=== PATIENT | male | born 1935 | race Caucasian/White ===

== ENCOUNTER 2017-01-02 15:23 | Emergency (ER) | payer MEDICARE ==
[~2017-01-02] VITALS: Ht 172.7 cm; Wt 81.6 kg
[~2017-01-02 15:23] MED LIST: ASP81TEC PO; ATEN100T88 PO; CITA20TA4 PO; DIGO250T96 PO; ENAL10TA PO; FINA5TAB6 PO; HSCO125 SL; LEVO500T69 PO; SIMV40TA4 PO; TERA5CAP10 PO
--- NOTE | 2017-01-02 17:05 | ED GI ---
General Chief Complaint: Abdominal/GI Problems Stated Complaint: CONSTIPATED Nursing Triage Note: Pt has a ostomy bag is concerned about possible blockage. Pt ate a large meal last night and reports no stool in his ostomy bag. Feels pressure "building up. " Sepsis Screen: No Definite Risk Source of Information: Patient, Family Exam Limitations: No Limitations History of Present Illness Time Seen By Provider: 17:05 Initial Comments 81-year-old male patient presents to the emergency department with complaints of possible ostomy blockage. Patient reports having a large meal last night. Denies having any stool or flatus in his ostomy bag today. States feels like he is bloated today. Denies any nausea, vomiting, diarrhea. States he hasn't eaten anything today due to abdominal distention. Timing/Duration: 12-24 Hours, Getting Worse Severity/Quality: Moderate, Cramping, Other (pressure) Location: Generalized Abdomen Radiation: No Radiation Activities at Onset: None Modifying Factors: Worsens With Other (no improvement with eating. worse with palpation.) Allergies and Home Medications Allergies Coded Allergies: No Known Drug Allergies (Unverified , 01/05/17) Home Medications Acetaminophen 500 Mg Tablet, 500-1,000 MG PO Q4H PRN for PAIN, (Reported) Aspirin 81 Mg Tabec, 81 MG PO DAILY, (Reported) Atenolol 100 Mg Tablet, 100 MG PO DAILY, (Reported) Atorvastatin Calcium 80 Mg Tablet, 40 MG PO DAILY, (Reported) TAKES 1/2 (80MG) TABLET Digoxin 125 Mcg Tablet, 125 MCG PO DAILY, (Reported) Enalapril Maleate 10 Mg Tablet, 5 MG PO DAILY, (Reported) TAKES 1/2 (10MG) TABLET Famotidine 20 Mg Tablet, 20 MG PO BID, #20 (Reported) FILLED #20 01-03-17 Finasteride 5 Mg Tablet, 5 MG PO DAILY, (Reported) Furosemide 20 Mg Tablet, 20 MG PO DAILY, (Reported) Hyoscyamine Sulfate 0.125 Mg Tab.subl, 0.125 MG SL Q6H PRN for PAIN, #14 ( Reported) #14 FILLED 01-03-17 Loratadine 10 Mg Tablet, 10 MG PO DAILY, (Reported) Metformin HCl 500 Mg Tab.er.24h, 500 MG PO DAILY, (Reported) Neomycin/Polymyxin B Sulf/Hc 10 Ml Drops.susp, 3 DROPS EACH EAR TID PRN for EAR PAIN for 7 Days, (Reported) Ondansetron 8 Mg Tab.rapdis, 8 MG PO Q6H PRN for NAUSEA, #10 (Reported) #10 FILLED 01-03-17 Oxybutynin Chloride 5 Mg Tablet, 5 MG PO DAILY, (Reported) Terazosin Hcl 5 Mg Capsule, 5 MG PO BID, (Reported) Review of Systems Constitutional: No chills, No diaphoresis, No fever, No malaise Respiratory: No Symptoms Reported Gastrointestinal: See HPI, Abdomen Distended, Abdominal Pain, Denies Blood Streaked Stools, Constipated, Denies Diarrhea, Denies Nausea, Denies Poor Appetite, Denies Poor Fluid Intake, Denies Rectal Bleeding, Denies Vomiting Genitourinary: Denies Burning, Denies Frequency, Denies Flank Pain, Denies Hematuria, Denies Pain Musculoskeletal: no symptoms reported Skin: no symptoms reported Psychiatric/Neurological: No Symptoms Reported All Other Systems Reviewed Negative Unless Noted: Yes (Negative excepted noted.) Past Kcyroxs-Upiicl-Mbwpgy Hx Patient Social History Alcohol Use: Denies Use Recreational Drug Use: No Smoking Status: Never a Smoker 2nd Hand Smoke Exposure: No Recent Foreign Travel: No Contact w/Someone Who Travel: No Recent Infectious Disease Expo: No Recent Hopitalizations: Yes Immunizations Up To Date Date of Pneumonia Vaccine: Jul 11, 2010 Date of Influenza Vaccine: Jul 11, 2011 Surgeries HX Surgeries: Yes (colon, gall bladder and appendix removed, cataracts removed) Surgeries: Abdominal (colon resection with ostomy.) Respiratory Hx Respiratory Disorders: No Cardiovascular Hx Cardiac Disorders: Yes Neurological Hx Neurological Disorders: No Reproductive System Hx Reproductive Disorders: No Genitourinary Hx Genitourinary Disorders: No Gastrointestinal Hx Gastrointestinal Disorders: Yes Musculoskeletal Hx Musculoskeletal Disorders: No Endocrine Hx Endocrine Disorders: No HEENT HX ENT Disorders: No Psychosocial Hx Psychiatric Problems: No Blood Transfusions Hx Blood Disorders: No Reviewed Nursing Assessment Reviewed/Agree w Nursing PMH: Yes Family Medical History Significant Family History: No Pertinent Family Hx Physical Exam Vital Signs Capillary Refill : Less Than 3 Seconds General Appearance: WD/WN, no apparent distress HEENT: PERRL/EOMI, pharynx normal Neck: supple, normal inspection Respiratory: lungs clear, normal breath sounds, no respiratory distress Cardiovascular: regular rate, rhythm, no murmur Gastrointestinal: abnormal bowel sounds, distended, No guarding, No rebound, tenderness (generalized tenderness.), hernia (reducible parastomal hernia noted. ), other (ostomy noted in the left midabdomen without flatus or stool noted in the ostomy bag. Stoma pain.) Extremities: no pedal edema, normal capillary refill Back: normal inspection Neurologic/Psychiatric: alert, normal mood/affect, oriented x 3 Skin: normal color, warm/dry Progress/Results/Core Measures Results/Orders Lab Results Laboratory Tests Test 01/02/17 17:45 Range/Units White Blood Count 9.9 4.3-11.0 10^3/uL Red Blood Count 4.74 4.35-5.85 10^6/uL Hemoglobin 14.7 13.3-17.7 G/DL Hematocrit 43 40-54 % Mean Corpuscular Volume 92 80-99 FL Mean Corpuscular Hemoglobin 31 25-34 PG Mean Corpuscular Hemoglobin Concent 34 32-36 G/DL Red Cell Distribution Width 12.7 10.0-14.5 % Platelet Count 157 130-400 10^3/uL Mean Platelet Volume 10.7 H 7.4-10.4 FL Neutrophils (%) (Auto) 75 42-75 % Lymphocytes (%) (Auto) 15 12-44 % Monocytes (%) (Auto) 7 0-12 % Eosinophils (%) (Auto) 3 0-10 % Basophils (%) (Auto) 0 0-10 % Neutrophils # (Auto) 7.4 1.8-7.8 X 10^3 Lymphocytes # (Auto) 1.4 1.0-4.0 X 10^3 Monocytes # (Auto) 0.7 0.0-1.0 X 10^3 Eosinophils # (Auto) 0.3 0.0-0.3 10^3/uL Basophils # (Auto) 0.0 0.0-0.1 10^3/uL Sodium Level 139 135-145 MMOL/L Potassium Level 4.5 3.6-5.0 MMOL/L Chloride Level 101 98-107 MMOL/L Carbon Dioxide Level 26 21-32 MMOL/L Anion Gap 12 5-14 MMOL/L Blood Urea Nitrogen 13 7-18 MG/DL Creatinine 0.83 0.60-1.30 MG/DL Estimat Glomerular Filtration Rate > 60 BUN/Creatinine Ratio 16 Glucose Level 119 H 70-105 MG/DL Calcium Level 10.3 H 8.5-10.1 MG/DL Total Bilirubin 0.7 0.1-1.0 MG/DL Aspartate Amino Transf (AST/SGOT) 27 5-34 U/L Alanine Aminotransferase (ALT/SGPT) 37 0-55 U/L Alkaline Phosphatase 59 40-136 U/L Total Protein 6.4 6.4-8.2 G/DL Albumin 4.0 3.2-4.5 G/DL Lipase 8 8-78 U/L My Orders Orders - AAKASH HODGES Acute Abd Series (01/02/17 16:31) Cbc With Automated Diff (01/02/17 17:11) Comprehensive Metabolic Panel (01/02/17 17:11) Lipase (01/02/17 17:11) Saline Lock/Iv-Start (01/02/17 17:11) Ondansetron Injection (Zofran Injectio (01/02/17 17:15) Famotidine Injection (Pepcid Injection) (01/02/17 17:11) Ns Iv 1000 Ml (Sodium Chloride 0.9%) (01/02/17 17:11) Ct Abdomen/Pelvis W (01/02/17 17:57) Iohexol Injection (Omnipaque 350 Mg/Ml 1 (01/02/17 18:30) Ns (Ivpb) (Sodium Chloride 0.9% Ivpb Bag (01/02/17 18:30) Ondansetron Injection (Zofran Injectio (01/02/17 19:15) Rx-Ondansetron Po (Rx-Zofran Po) (01/02/17 19:57) Rx-Hyoscyamine Tab (Rx-Levsin Sl) (01/02/17 19:57) Iv Push Bad [employer] Gat[employer]r Ed (01/02/17 ) Medications Given in ED Vital Signs/I&O Blood Pressure Mean: 98 Diagnostic Imaging Diagonstic Imaging: Xray Plain Films/CT/US/NM/MRI: abdomen Comments FINDINGS: Minimal atelectasis in the left lung base. Otherwise, the lungs are clear. No pleural effusion or pneumothorax. Heart is normal in size. Stable left pectoral transvenous pacemaker. No free intraperitoneal air. There are a few gas-filled borderline dilated loops of small bowel in the left abdomen, measuring up to 5 cm. Cholecystectomy. Age-related degenerative changes in the lumbar spine. IMPRESSION: 1. Nonspecific bowel gas pattern, with a few borderline dilated loops of small bowel in the left lower quadrant. If there is concern for small bowel obstruction, consider CT. 2. No free intraperitoneal air. 3. Left basilar subsegmental atelectasis. No acute cardiopulmonary process. Dictated by: Dictated on workstation # [id number] Reviewed: Reviewed by Me (radiology report reviewed by me) Diagonstic Imaging: CT Plain Films/CT/US/NM/MRI: abdomen, pelvis Comments FINDINGS: Lower chest: Patchy linear atelectasis within the lingula and middle lobe. Otherwise, lung bases are clear. No pericardial or pleural effusion. Peritoneum: No free intraperitoneal air or fluid. Liver and biliary system: Diffuse hypoattenuation of the liver indicates hepatic steatosis. No focal hepatic lesion. Status post cholecystectomy. No bile duct dilation. Spleen and Pancreas: Spleen is normal. The pancreas enhances normally without mass lesion or peripancreatic inflammatory changes. Adrenals: Normal. tract: The kidneys enhance normally without suspicious mass or obstruction. There is a 10 mm nonobstructing calculus in the lower pole of the left kidney. Urinary bladder is distended without wall thickening. Prostate is not enlarged. GI tract: Stomach is fluid-filled without wall thickening. No bowel obstruction. Small bowel loops are diffusely fluid filled with normal enhancement of the mucosa. The majority of the colon is fluid-filled. Surgical changes from partial distal colectomy with left lower quadrant colostomy with a wide neck fat-containing parastomal hernia. Raul pouch is normal with the exception of a few diverticula without diverticulitis. The appendix is not visualized and may be surgically absent. No right lower quadrant inflammatory changes to suggest acute appendicitis, if the appendix is present. Vasculature and Lymph nodes: Normal caliber aorta. No abdominal or pelvic lymphadenopathy. Musculoskeletal: No concerning osseous lesion. IMPRESSION: 1. No bowel obstruction. The bowel is diffusely fluid-filled most compatible with enteritis. 2. 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 3. There is a 10 mm nonobstructing calculus in the lower pole of the left kidney. 4. Diffuse hepatic steatosis. Dictated by: Dictated on workstation # [id number] Reviewed: Reviewed by Me (radiology report reviewed) Departure Communication Progress Notes 1950 all laboratory and diagnostic findings discussed with the patient. Patient now noted to have a large amount of stool and flatus in the ostomy bag at this time. Patient reports feeling much better now. Plan for dsch to home. all return precautions were discussed with the patient as described n the [facility] instructions of this report. Patient voices understanding and agrees with the treatment plan. Impression Impression: Primary Impression: Abdominal pain Qualified Codes: R10.84 - Generalized abdominal pain Additional Impressions: Nausea Parastomal hernia without obstruction or gangrene Disposition: HOME, SELF-CARE Condition: Improved Departure-Patient Inst. Decision time for Depature: 19:54 Referrals: ANA CRUZ MD (PCP/Family) Primary Care Physician Patient Instructions: Acute Abdomen (Belly Pain), Adult (DC), GASTROENTERITIS- 6Y-ADULT Add. Discharge Instructions: All discharge instructions reviewed with patient and/or family. Voiced understanding. Medications as instructed. Continue usual home medications. Tylenol and ibuprofen [id number] as directed for pain or fever. Clear liquid diet until symptoms improve, then increase diet slowly. Follow-up with a family practitioner of choice to establish care and for recheck. Return to the emergency department for worsened pain, fever, vomiting, vomiting blood, rectal bleeding, black stools, inability to urinate, decreased urination, inability to pass stool/gas, or any other concerns. AAKASH HODGES Jan 02, 2017 17:05
--- NOTE | 2017-01-02 17:09 | Diagnostic Imaging Report ---
INDICATION: Constipation. TECHNIQUE: Acute abdomen. COMPARISON: 04/11/2012. FINDINGS: Minimal atelectasis in the left lung base. Otherwise, the lungs are clear. No pleural effusion or pneumothorax. Heart is normal in size. Stable left pectoral transvenous pacemaker. No free intraperitoneal air. There are a few gas-filled borderline dilated loops of small bowel in the left abdomen, measuring up to 5 cm. Cholecystectomy. Age-related degenerative changes in the lumbar spine. IMPRESSION: 1. Nonspecific bowel gas pattern, with a few borderline dilated loops of small bowel in the left lower quadrant. If there is concern for small bowel obstruction, consider CT. 2. No free intraperitoneal air. 3. Left basilar subsegmental atelectasis. No acute cardiopulmonary process. Dictated by: Dictated on workstation # [id number]
[2017-01-02] MEDS ORDERED: NS IV 1000 ML 1,000 ML IV ONE (17:11)
[2017-01-02] MEDS ORDERED: FAMOTIDINE 20MG/2ML IV (PEPCID) IV STA (17:11)
[2017-01-02] MEDS ORDERED: ONDANSETRON 4 MG/2 ML (SDV) Z0FRAN IVP ONE ×2 (17:15→19:15)
[2017-01-02 17:55] LABS: BASOPHILS % (AUTO) 0 % (0-10); EOSINOPHILS # (AUTO) 0.3 10^3/uL (0.0-0.3); EOSINOPHILS % (AUTO) 3 % (0-10); LYMPHOCYTES # (AUTO) 1.4 X 10^3 (1.0-4.0); LYMPHOCYTES % (AUTO) 15 % (12-44); MEAN CORPUSCULAR HEMOGLOBIN 31 PG (25-34); MEAN CORPUSCULAR HGB CONC 34 G/DL (32-36); MEAN CORPUSCULAR VOLUME 92 FL (80-99); MEAN PLATELET VOLUME 10.7 FL (7.4-10.4); MONOCYTES # (AUTO) 0.7 X 10^3 (0.0-1.0); MONOCYTES % (AUTO) 7 % (0-12); NEUTROPHILS # (AUTO) 7.4 X 10^3 (1.8-7.8); NEUTROPHILS % (AUTO) 75 % (42-75); PLATELET COUNT 157 10^3/uL (130-400); RED BLOOD COUNT 4.74 10^6/uL (4.35-5.85); RED CELL DISTRIBUTION WIDTH 12.7 % (10.0-14.5); WHITE BLOOD COUNT 9.9 10^3/uL (4.3-11.0)
[2017-01-02 18:16] LABS: ALANINE AMINOTRANSFERASE 37 U/L (0-55); ANION GAP 12 MMOL/L (5-14); ASPARTATE AMINO TRANSFERASE 27 U/L (5-34); BILIRUBIN,TOTAL 0.7 MG/DL (0.1-1.0); BLOOD UREA NITROGEN 13 MG/DL (7-18); BUN/CREATININE RATIO 16; CALCIUM 10.3 MG/DL (8.5-10.1); CARBON DIOXIDE 26 MMOL/L (21-32); CHLORIDE 101 MMOL/L (98-107); CREATININE SERUM 0.83 MG/DL (0.60-1.30); GFR ESTIMATED > 60; GLUCOSE 119 MG/DL (70-105); LIPASE 8 U/L (8-78); POTASSIUM 4.5 MMOL/L (3.6-5.0); SODIUM 139 MMOL/L (135-145); TOTAL PROTEIN 6.4 G/DL (6.4-8.2)
[2017-01-02] MEDS ORDERED: IOHEXOL 350 MG/ML 100 ML (OMNIPAQUE 350) VIAL IV ONE (18:30)
[2017-01-02] MEDS ORDERED: NS 100 ML (IVPB) BAG IV ONE (18:30)
--- NOTE | 2017-01-02 19:01 | Diagnostic Imaging Report ---
PROCEDURE: CT abdomen and pelvis with contrast. TECHNIQUE: Multiple contiguous axial images were obtained through the abdomen and pelvis after administration of intravenous contrast. INDICATION: Abdominal pain. COMPARISON: Acute abdominal series from earlier the same day at 4:54 p.m. FINDINGS: Lower chest: Patchy linear atelectasis within the lingula and middle lobe. Otherwise, lung bases are clear. No pericardial or pleural effusion. Peritoneum: No free intraperitoneal air or fluid. Liver and biliary system: Diffuse hypoattenuation of the liver indicates hepatic steatosis. No focal hepatic lesion. Status post cholecystectomy. No bile duct dilation. Spleen and Pancreas: Spleen is normal. The pancreas enhances normally without mass lesion or peripancreatic inflammatory changes. Adrenals: Normal. tract: The kidneys enhance normally without suspicious mass or obstruction. There is a 10 mm nonobstructing calculus in the lower pole of the left kidney. Urinary bladder is distended without wall thickening. Prostate is not enlarged. GI tract: Stomach is fluid-filled without wall thickening. No bowel obstruction. Small bowel loops are diffusely fluid filled with normal enhancement of the mucosa. The majority of the colon is fluid-filled. Surgical changes from partial distal colectomy with left lower quadrant colostomy with a wide neck fat-containing parastomal hernia. Raul pouch is normal with the exception of a few diverticula without diverticulitis. The appendix is not visualized and may be surgically absent. No right lower quadrant inflammatory changes to suggest acute appendicitis, if the appendix is present. Vasculature and Lymph nodes: Normal caliber aorta. No abdominal or pelvic lymphadenopathy. Musculoskeletal: No concerning osseous lesion. IMPRESSION: 1. No bowel obstruction. The bowel is diffusely fluid-filled most compatible with enteritis. 2. 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 3. There is a 10 mm nonobstructing calculus in the lower pole of the left kidney. 4. Diffuse hepatic steatosis. Dictated by: Dictated on workstation # [id number]
[2017-01-02] MEDS ORDERED: FAMO-119 PO (19:56)
[2017-01-02] MEDS ORDERED: ONDA8TAB13 PO (19:56)
[2017-01-02] MEDS ORDERED: HYOS0.1283 SL (19:56)
[2017-01-02] MEDS ORDERED: RX-ONDANSETRON 4 MG ODT (ZOFRAN) PPK #4 PO STA (19:57)
[2017-01-02] MEDS ORDERED: RX-HYOSCYAMINE 0.125 MG SL (LEVSIN) PPK#6 SL STA (19:57)
[2017-01-02 20:18] VITALS: BP 170/76
== END 2017-01-02 20:18 | disposition home or self-care (01) ==
LOC: EDUNIT# 15:23 → ER 15:25
DX: K43.5 Parastomal hernia without obstruction or gangrene (principal); N20.0 Calculus of kidney; K76.0 Fatty (change of) liver, not elsewhere classified; Z79.3 Long term (current) use of hormonal contraceptives
CPT/HCPCS: 36415; 74022; 74177; 80053; 83690; 85025; 96361; 96374; 96375; 96376

== ENCOUNTER 2017-01-03 23:33 | Emergency (ER) | payer MEDICARE ==
[~2017-01-03] VITALS: Ht 172.7 cm; Wt 81.6 kg
[~2017-01-03 23:33] MED LIST changes: +FAMO-119 PO; +HYOS0.1283 SL; +ONDA8TAB13 PO
--- NOTE | 2017-01-04 00:30 | ED Abdominal Pain ---
General Chief Complaint: Abdominal/GI Problems Stated Complaint: BOWEL ISSUES Nursing Triage Note: patient reports bowels not working Sepsis Screen: No Definite Risk Source of Information: Patient, RN Notes Reviewed Exam Limitations: No Limitations History of Present Illness Time Seen By Provider: 00:20 Initial Comments As above and below. Patient here on 01/03 c/ similar complaints. Further questioning reveals he never filled his Rx's from that visit. Timing/Duration: 1 Week Severity/Quality: Cramping, Sharp, Stabbing Location: Generalized Abdomen Radiation: No Radiation Activities at Onset: None Modifying Factors: Improves With Other (none) Associated Symptoms: Heartburn Allergies and Home Medications Allergies Coded Allergies: No Known Drug Allergies (Unverified , 01/05/17) Home Medications Acetaminophen 500 Mg Tablet, 500-1,000 MG PO Q4H PRN for PAIN, (Reported) Aspirin 81 Mg Tabec, 81 MG PO DAILY, (Reported) Atenolol 100 Mg Tablet, 100 MG PO DAILY, (Reported) Atorvastatin Calcium 80 Mg Tablet, 40 MG PO DAILY, (Reported) TAKES 1/2 (80MG) TABLET Digoxin 125 Mcg Tablet, 125 MCG PO DAILY, (Reported) Enalapril Maleate 10 Mg Tablet, 5 MG PO DAILY, (Reported) TAKES 1/2 (10MG) TABLET Famotidine 20 Mg Tablet, 20 MG PO BID, #20 (Reported) FILLED #20 01-03-17 Finasteride 5 Mg Tablet, 5 MG PO DAILY, (Reported) Furosemide 20 Mg Tablet, 20 MG PO DAILY, (Reported) Hyoscyamine Sulfate 0.125 Mg Tab.subl, 0.125 MG SL Q6H PRN for PAIN, #14 ( Reported) #14 FILLED 01-03-17 Loratadine 10 Mg Tablet, 10 MG PO DAILY, (Reported) Metformin HCl 500 Mg Tab.er.24h, 500 MG PO DAILY, (Reported) Neomycin/Polymyxin B Sulf/Hc 10 Ml Drops.susp, 3 DROPS EACH EAR TID PRN for EAR PAIN for 7 Days, (Reported) Ondansetron 8 Mg Tab.rapdis, 8 MG PO Q6H PRN for NAUSEA, #10 (Reported) #10 FILLED 01-03-17 Oxybutynin Chloride 5 Mg Tablet, 5 MG PO DAILY, (Reported) Terazosin Hcl 5 Mg Capsule, 5 MG PO BID, (Reported) Review of Systems Constitutional: see HPI Gastrointestinal: See HPI, Abdominal Pain All Other Systems Reviewed Negative Unless Noted: Yes (Negative excepted noted.) Past Svhkofs-Kouakt-Qhijxv Hx Patient Social History Alcohol Use: Denies Use Recreational Drug Use: No Smoking Status: Never a Smoker 2nd Hand Smoke Exposure: No Recent Foreign Travel: No Contact w/Someone Who Travel: No Recent Infectious Disease Expo: No Recent Hopitalizations: No Immunizations Up To Date Date of Pneumonia Vaccine: Jul 11, 2010 Date of Influenza Vaccine: Jul 11, 2011 Seasonal Allergies Seasonal Allergies: No Surgeries HX Surgeries: Yes (colon, cataracts removed) Surgeries: Appendectomy, Gallbladder Respiratory Hx Respiratory Disorders: No Cardiovascular Hx Cardiac Disorders: Yes Cardiac Disorders: Hypertension Neurological Hx Neurological Disorders: No Reproductive System Hx Reproductive Disorders: No Genitourinary Hx Genitourinary Disorders: No Gastrointestinal Hx Gastrointestinal Disorders: Yes Gastrointestinal Disorders: Gastroesophageal Reflux Musculoskeletal Hx Musculoskeletal Disorders: No Endocrine Hx Endocrine Disorders: No HEENT HX ENT Disorders: No Psychosocial Hx Psychiatric Problems: No Integumentary HX Skin/Integumentary Disorder: No Blood Transfusions Hx Blood Disorders: No Physical Exam Vital Signs Capillary Refill : Less Than 3 Seconds General Appearance: WD/WN, no apparent distress Respiratory: no respiratory distress Cardiovascular: regular rate, rhythm Gastrointestinal: No rebound, tenderness (generalized but worse epigastrically) Rectal: deferred Neurologic/Psychiatric: no motor/sensory deficits, alert, oriented x 3 Skin: warm/dry Progress/Results/Core Measures Results/Orders Lab Results Laboratory Tests Test 01/04/17 00:45 Range/Units White Blood Count 9.8 4.3-11.0 10^3/uL Red Blood Count 4.36 4.35-5.85 10^6/uL Hemoglobin 13.6 13.3-17.7 G/DL Hematocrit 40 40-54 % Mean Corpuscular Volume 92 80-99 FL Mean Corpuscular Hemoglobin 31 25-34 PG Mean Corpuscular Hemoglobin Concent 34 32-36 G/DL Red Cell Distribution Width 12.7 10.0-14.5 % Platelet Count 154 130-400 10^3/uL Mean Platelet Volume 10.5 H 7.4-10.4 FL Neutrophils (%) (Auto) 76 H 42-75 % Lymphocytes (%) (Auto) 11 L 12-44 % Monocytes (%) (Auto) 9 0-12 % Eosinophils (%) (Auto) 4 0-10 % Basophils (%) (Auto) 0 0-10 % Neutrophils # (Auto) 7.4 1.8-7.8 X 10^3 Lymphocytes # (Auto) 1.1 1.0-4.0 X 10^3 Monocytes # (Auto) 0.9 0.0-1.0 X 10^3 Eosinophils # (Auto) 0.4 H 0.0-0.3 10^3/uL Basophils # (Auto) 0.0 0.0-0.1 10^3/uL Sodium Level 146 H 135-145 MMOL/L Potassium Level 4.7 3.6-5.0 MMOL/L Chloride Level 111 H 98-107 MMOL/L Carbon Dioxide Level 25 21-32 MMOL/L Anion Gap 10 5-14 MMOL/L Blood Urea Nitrogen 53 H 7-18 MG/DL Creatinine 1.41 H 0.60-1.30 MG/DL Estimat Glomerular Filtration Rate 48 BUN/Creatinine Ratio 38 Glucose Level 129 H 70-105 MG/DL Calcium Level 8.5 8.5-10.1 MG/DL Total Bilirubin 0.3 0.1-1.0 MG/DL Aspartate Amino Transf (AST/SGOT) 29 5-34 U/L Alanine Aminotransferase (ALT/SGPT) 36 0-55 U/L Alkaline Phosphatase 67 40-136 U/L Troponin I < 0.30 <0.30 NG/ML Total Protein 6.5 6.4-8.2 G/DL Albumin 3.6 3.2-4.5 G/DL Lipase 188 H 8-78 U/L Digoxin Level < 0.30 L 0.80-2.00 NG/ML My Orders Orders - NICOLE LASSITER DO Cbc With Automated Diff (01/04/17 00:28) Comprehensive Metabolic Panel (01/04/17 00:28) Lipase (01/04/17 00:28) Digoxin (01/04/17 00:30) Saline Lock/Iv-Start (01/04/17 00:31) Ketorolac Injection (Toradol Injection) (01/04/17 00:45) Troponin I (01/04/17 01:37) Lactated Ringers (Lr 1000 Ml Iv Solution (01/04/17 01:37) Famotidine Tablet (Pepcid Tablet) (01/04/17 02:30) Iv Push [employer] Ed (01/03/17 ) Medications Given in ED Vital Signs/I&O Departure Impression Impression: Primary Impression: Gastroenteritis Additional Impressions: Mild pancreatitis Mild dehydration Disposition: 01 HOME, SELF-CARE Condition: Improved Departure-Patient Inst. Decision time for Depature: 02:32 Referrals: ANA CRUZ MD (PCP/Family) Primary Care Physician Patient Instructions: Pancreatitis (DC), Viral Gastroenteritis, Adult (DC) Add. Discharge Instructions: All discharge instructions reviewed with patient and/or family. Voiced understanding. NEED TO TAKE THE MEDICATIONS PRESCRIBED @ YOUR FIRST VISIT DIRECTED, ESPECIALLY THE PEPCID. NICOLE LASSITER DO Jan 04, 2017 00:30
[2017-01-04] MEDS ORDERED: KETOROLAC 30 MG/ML VIAL IVP ONE (00:45)
[2017-01-04 00:51] LABS: BASOPHILS % (AUTO) 0 % (0-10); EOSINOPHILS # (AUTO) 0.4 10^3/uL (0.0-0.3); EOSINOPHILS % (AUTO) 4 % (0-10); LYMPHOCYTES # (AUTO) 1.1 X 10^3 (1.0-4.0); LYMPHOCYTES % (AUTO) 11 % (12-44); MEAN CORPUSCULAR HEMOGLOBIN 31 PG (25-34); MEAN CORPUSCULAR HGB CONC 34 G/DL (32-36); MEAN CORPUSCULAR VOLUME 92 FL (80-99); MEAN PLATELET VOLUME 10.5 FL (7.4-10.4); MONOCYTES # (AUTO) 0.9 X 10^3 (0.0-1.0); MONOCYTES % (AUTO) 9 % (0-12); NEUTROPHILS # (AUTO) 7.4 X 10^3 (1.8-7.8); NEUTROPHILS % (AUTO) 76 % (42-75); PLATELET COUNT 154 10^3/uL (130-400); RED BLOOD COUNT 4.36 10^6/uL (4.35-5.85); RED CELL DISTRIBUTION WIDTH 12.7 % (10.0-14.5); WHITE BLOOD COUNT 9.8 10^3/uL (4.3-11.0)
[2017-01-04 01:12] LABS: ALANINE AMINOTRANSFERASE 36 U/L (0-55); ALBUMIN 3.6 G/DL (3.2-4.5); ANION GAP 10 MMOL/L (5-14); ASPARTATE AMINO TRANSFERASE 29 U/L (5-34); BILIRUBIN,TOTAL 0.3 MG/DL (0.1-1.0); BLOOD UREA NITROGEN 53 MG/DL (7-18); BUN/CREATININE RATIO 38; CALCIUM 8.5 MG/DL (8.5-10.1); CARBON DIOXIDE 25 MMOL/L (21-32); CHLORIDE 111 MMOL/L (98-107); CREATININE SERUM 1.41 MG/DL (0.60-1.30); GFR ESTIMATED 48; GLUCOSE 129 MG/DL (70-105); LIPASE 188 U/L (8-78); POTASSIUM 4.7 MMOL/L (3.6-5.0); SODIUM 146 MMOL/L (135-145); TOTAL PROTEIN 6.5 G/DL (6.4-8.2)
[2017-01-04 01:20] LABS: DIGOXIN < 0.30 NG/ML (0.80-2.00)
[2017-01-04] MEDS ORDERED: LACTATED RINGERS 1,000 ML IV ONE (01:37)
[2017-01-04] MEDS ORDERED: FAMOTIDINE 20 MG (PEPCID) TABLET PO ONE (02:30)
[2017-01-04 02:37] VITALS: BP 145/67
[2017-01-05] MEDS ORDERED: METF500T8 PO (22:52)
[2017-01-05] MEDS ORDERED: FURO20TA4 PO (22:54)
[2017-01-05] MEDS ORDERED: OXYB5TAB9 PO (22:56)
== END 2017-01-04 02:40 | disposition home or self-care (01) ==
LOC: EDUNIT# 23:33 → ER 23:35
DX: K52.9 Noninfective gastroenteritis and colitis, unspecified (principal); I10 Essential (primary) hypertension; Z79.82 Long term (current) use of aspirin; Z79.899 Other long term (current) drug therapy
CPT/HCPCS: 36415; 80053; 80162; 83690; 84484; 85025; 96361; 96374

== ENCOUNTER 2017-01-05 15:08 | Observation (INO) | payer MEDICARE ==
[~2017-01-05] VITALS: Ht 165.1 cm; Wt 77.5 kg
[2017-01-05] MEDS ORDERED: NS IV 1000 ML 1,000 ML IV ONE (15:11)
[2017-01-05] MEDS ORDERED: fentaNYL INJECTION 100 MCG/2 ML AMP IVP STA (15:11)
--- NOTE | 2017-01-05 15:24 | ED GI ---
General Chief Complaint: Abdominal/GI Problems Stated Complaint: ABD PAIN Source of Information: Patient Exam Limitations: No Limitations History of Present Illness Time Seen By Provider: 15:05 Initial Comments Here with report of persistent abdominal pain and nausea. States has been unable to eat for a few days and he is becoming progressively weak. He has been able to take his medicines although with some difficulty. Does have history of colostomy. Seen recently for the same and found to have no obstruction. He was given pain medicines which helped a little but are not working with his nausea. Denies fever or chills. Does report significant weakness. Timing/Duration: 2-3 Days Severity/Quality: Moderate, Cramping Location: Generalized Abdomen Radiation: No Radiation Activities at Onset: None Modifying Factors: Worsens With Eating, Worsens With Vomiting Associated Symptoms: No Back Pain, No Chest Pain, No Fever/Chills, Nausea/ Vomiting, No Shortness of Air, Weakness Allergies and Home Medications Allergies Coded Allergies: No Known Drug Allergies (Unverified , 01/05/17) Home Medications Acetaminophen 500 Mg Tablet, 500-1,000 MG PO Q4H PRN for PAIN, (Reported) Aspirin 81 Mg Tabec, 81 MG PO DAILY, (Reported) Atenolol 100 Mg Tablet, 100 MG PO DAILY, (Reported) Atorvastatin Calcium 80 Mg Tablet, 40 MG PO DAILY, (Reported) TAKES 1/2 (80MG) TABLET Digoxin 125 Mcg Tablet, 125 MCG PO DAILY, (Reported) Enalapril Maleate 10 Mg Tablet, 5 MG PO DAILY, (Reported) TAKES 1/2 (10MG) TABLET Famotidine 20 Mg Tablet, 20 MG PO BID, #20 (Reported) FILLED #20 01-03-17 Finasteride 5 Mg Tablet, 5 MG PO DAILY, (Reported) Furosemide 20 Mg Tablet, 20 MG PO DAILY, (Reported) Hyoscyamine Sulfate 0.125 Mg Tab.subl, 0.125 MG SL Q6H PRN for PAIN, #14 ( Reported) #14 FILLED 01-03-17 Loratadine 10 Mg Tablet, 10 MG PO DAILY, (Reported) Metformin HCl 500 Mg Tab.er.24h, 500 MG PO DAILY, (Reported) Neomycin/Polymyxin B Sulf/Hc 10 Ml Drops.susp, 3 DROPS EACH EAR TID PRN for EAR PAIN for 7 Days, (Reported) Ondansetron 8 Mg Tab.rapdis, 8 MG PO Q6H PRN for NAUSEA, #10 (Reported) #10 FILLED 01-03-17 Oxybutynin Chloride 5 Mg Tablet, 5 MG PO DAILY, (Reported) Terazosin Hcl 5 Mg Capsule, 5 MG PO BID, (Reported) Review of Systems Constitutional: see HPI, No chills, No fever EENTM: No Symptoms Reported Respiratory: No Symptoms Reported Cardiovascular: No Symptoms Reported Gastrointestinal: See HPI, Abdominal Pain, Denies Diarrhea, Nausea, Poor Appetite, Denies Vomiting Genitourinary: No Symptoms Reported Musculoskeletal: no symptoms reported Skin: no symptoms reported Psychiatric/Neurological: No Symptoms Reported Endocrine: No Symptoms Reported All Other Systems Reviewed Negative Unless Noted: Yes Past Naqpnra-Zlrjim-Chuacn Hx Patient Social History Alcohol Use: Denies Use Recreational Drug Use: No Smoking Status: Never a Smoker 2nd Hand Smoke Exposure: No Recent Hopitalizations: No Immunizations Up To Date Date of Pneumonia Vaccine: Jul 11, 2010 Date of Influenza Vaccine: Jul 11, 2011 Seasonal Allergies Seasonal Allergies: No Surgeries HX Surgeries: Yes (colon, cataracts removed) Surgeries: Appendectomy, Gallbladder Respiratory Hx Respiratory Disorders: No Cardiovascular Hx Cardiac Disorders: Yes Cardiac Disorders: Hypertension Neurological Hx Neurological Disorders: No Reproductive System Hx Reproductive Disorders: No Genitourinary Hx Genitourinary Disorders: No Gastrointestinal Hx Gastrointestinal Disorders: Yes Gastrointestinal Disorders: Gastroesophageal Reflux Musculoskeletal Hx Musculoskeletal Disorders: No Endocrine Hx Endocrine Disorders: No HEENT HX ENT Disorders: No Psychosocial Hx Psychiatric Problems: No Integumentary HX Skin/Integumentary Disorder: No Blood Transfusions Hx Blood Disorders: No Reviewed Nursing Assessment Reviewed/Agree w Nursing PMH: Yes Physical Exam Vital Signs VS - Last 72 Hours, by Label 01/05/17 01/05/17 15:11 15:26 Temp 98.1 98.1 Pulse 86 Resp 16 B/P (MAP) 160/69 Pulse Ox 97 Capillary Refill : General Appearance: WD/WN, mild distress HEENT: PERRL/EOMI, pharynx normal Neck: full range of motion, supple Respiratory: lungs clear, normal breath sounds Cardiovascular: regular rate, rhythm, no murmur Gastrointestinal: soft, distended, tenderness (mild diffuse) Extremities: non-tender, normal inspection Back: normal inspection, no CVA tenderness, no vertebral tenderness Neurologic/Psychiatric: alert, oriented x 3 Skin: normal color, warm/dry Progress/Results/Core Measures Results/Orders Lab Results Laboratory Tests Test 01/05/17 15:35 Range/Units White Blood Count 7.8 4.3-11.0 10^3/uL Red Blood Count 4.35 4.35-5.85 10^6/uL Hemoglobin 13.7 13.3-17.7 G/DL Hematocrit 40 40-54 % Mean Corpuscular Volume 92 80-99 FL Mean Corpuscular Hemoglobin 32 25-34 PG Mean Corpuscular Hemoglobin Concent 34 32-36 G/DL Red Cell Distribution Width 12.7 10.0-14.5 % Platelet Count 158 130-400 10^3/uL Mean Platelet Volume 10.2 7.4-10.4 FL Neutrophils (%) (Auto) 74 42-75 % Lymphocytes (%) (Auto) 14 12-44 % Monocytes (%) (Auto) 11 0-12 % Eosinophils (%) (Auto) 1 0-10 % Basophils (%) (Auto) 0 0-10 % Neutrophils # (Auto) 5.8 1.8-7.8 X 10^3 Lymphocytes # (Auto) 1.1 1.0-4.0 X 10^3 Monocytes # (Auto) 0.9 0.0-1.0 X 10^3 Eosinophils # (Auto) 0.1 0.0-0.3 10^3/uL Basophils # (Auto) 0.0 0.0-0.1 10^3/uL Sodium Level 135 135-145 MMOL/L Potassium Level 4.3 3.6-5.0 MMOL/L Chloride Level 99 98-107 MMOL/L Carbon Dioxide Level 27 21-32 MMOL/L Anion Gap 9 5-14 MMOL/L Blood Urea Nitrogen 20 H 7-18 MG/DL Creatinine 1.06 0.60-1.30 MG/DL Estimat Glomerular Filtration Rate > 60 BUN/Creatinine Ratio 19 Glucose Level 136 H 70-105 MG/DL Calcium Level 9.4 8.5-10.1 MG/DL Magnesium Level 1.6 L 1.8-2.4 MG/DL Total Bilirubin 1.1 H 0.1-1.0 MG/DL Aspartate Amino Transf (AST/SGOT) 19 5-34 U/L Alanine Aminotransferase (ALT/SGPT) 23 0-55 U/L Alkaline Phosphatase 41 40-136 U/L C-Reactive Protein High Sensitivity 2.42 H 0.00-0.50 MG/DL Total Protein 5.9 L 6.4-8.2 G/DL Albumin 3.5 3.2-4.5 G/DL Lipase 5 L 8-78 U/L Digoxin Level 0.42 L 0.80-2.00 NG/ML My Orders Orders - KT MATHEW MD Cbc With Automated Diff (01/05/17 15:11) Comprehensive Metabolic Panel (01/05/17 15:11) Hs C Reactive Protein (01/05/17 15:11) Magnesium (01/05/17 15:11) Ua Culture If Indicated (01/05/17 15:11) Fentanyl Injection (Sublimaze Injection (01/05/17 15:11) Ns Iv 1000 Ml (Sodium Chloride 0.9%) (01/05/17 15:11) Acute Abd Series (01/05/17 15:11) Digoxin (01/05/17 15:39) Lipase (01/05/17 15:46) Medications Given in ED Current Medications Medications Dose Ordered Sig/Rich Route Start Time Stop Time Status Last Admin Dose Admin Sodium Chloride 1,000 ml @ 0 mls/hr Q0M ONCE IV 01/05/17 15:11 01/05/17 15:16 DC 01/05/17 15:28 1,000 MLS/HR Vital Signs/I&O Vital Sign - Last 12Hours 01/05/17 01/05/17 15:11 15:26 Temp 98.1 98.1 Pulse 86 Resp 16 B/P (MAP) 160/69 Pulse Ox 97 Progress Note : Progress Note Seen and evaluated. IV established by EMS. Continue normal saline 1 L bolus initiated by EMS. Fentanyl 50 g IV, labs and acute abdominal series ordered. Monitor patient. 1706: Patient reports that he still does not feel well. This is his third visit in 3 days. Labs are a little better today than previous visit. Due to patient's persistent nausea and generalized abdominal discomfort and multiple visits, we will put patient in the hospital overnight in observation status with continued IV fluids. I did discuss the case with Dr. OLIVER and he agrees to accept the patient for admission. Patient is in agreement with plan. Patient understands that this is an observation status visit. Diagnostic Imaging Diagonstic Imaging: Xray Plain Films/CT/US/NM/MRI: chest, abdomen Comments NAME: ROSANNE CHAKRABORTY [facility] REC#: [id number] PT STATUS: REG ER : 1935 PHYSICIAN: KT MATHEW MD ADMIT DATE: 01/05/17/ER Signed Date of Exam: 01/05/17 ACUTE ABD SERIES Acute abdominal series. INDICATION: Nausea. Abdominal pain. FINDINGS: The lungs demonstrate no significant consolidation. The minimal atelectasis or scarring is seen in the left lung base. The heart size is normal. Pacemaker with two cardiac leads seen. No effusion or pneumothorax. There is no pneumoperitoneum. Surgical clips in the upright abdomen seen. There is mild distention of the stomach and minimal dilatation of a few small bowel loops with air-fluid levels seen. There is fecal material seen in the rectum. A 1 cm left flank calcification compatible with lower pole left kidney stone is seen as confirmed on recent CT scan. IMPRESSION: 1. Nonspecific minimal dilatation of small bowel loops with air-fluid levels may relate to reactive ileus from underlying enteritis or other inflammatory process. No significant change from 01/02/2017 seen. 2. A 1 cm left kidney stone. Dictated by: Dictated on workstation # [id number] Dict: 01/05/17 1611 Trans: 01/05/17 1655 [facility] [id number] Interpreted by: JAYLYN GIL MD Electronically signed by:JAYLYN GIL MD 01/05/17 1655 Departure Communication Time/Spoke to Admitting Phy: 17:06 Impression Impression: Primary Impression: Nausea alone Additional Impression: Generalized abdominal pain Disposition: ADMITTED INPATIENT Condition: Stable Decision to Admit Reason: Admit from ER (General) Decision to Admit/Date: Jan 05, 2017 Time/Decision to Admit Time: 17:06 Departure-Patient Inst. Referrals: ANA CRUZ MD (PCP/Family) Primary Care Physician KT MATHEW MD Jan 05, 2017 15:24
[2017-01-05 15:45] LABS: BASOPHILS % (AUTO) 0 % (0-10); EOSINOPHILS # (AUTO) 0.1 10^3/uL (0.0-0.3); EOSINOPHILS % (AUTO) 1 % (0-10); LYMPHOCYTES # (AUTO) 1.1 X 10^3 (1.0-4.0); LYMPHOCYTES % (AUTO) 14 % (12-44); MEAN CORPUSCULAR HEMOGLOBIN 32 PG (25-34); MEAN CORPUSCULAR HGB CONC 34 G/DL (32-36); MEAN CORPUSCULAR VOLUME 92 FL (80-99); MEAN PLATELET VOLUME 10.2 FL (7.4-10.4); MONOCYTES # (AUTO) 0.9 X 10^3 (0.0-1.0); MONOCYTES % (AUTO) 11 % (0-12); NEUTROPHILS # (AUTO) 5.8 X 10^3 (1.8-7.8); NEUTROPHILS % (AUTO) 74 % (42-75); PLATELET COUNT 158 10^3/uL (130-400); RED BLOOD COUNT 4.35 10^6/uL (4.35-5.85); RED CELL DISTRIBUTION WIDTH 12.7 % (10.0-14.5); WHITE BLOOD COUNT 7.8 10^3/uL (4.3-11.0)
[2017-01-05 16:08] LABS: ALANINE AMINOTRANSFERASE 23 U/L (0-55); ALBUMIN 3.5 G/DL (3.2-4.5); ANION GAP 9 MMOL/L (5-14); ASPARTATE AMINO TRANSFERASE 19 U/L (5-34); BILIRUBIN,TOTAL 1.1 MG/DL (0.1-1.0); BLOOD UREA NITROGEN 20 MG/DL (7-18); BUN/CREATININE RATIO 19; CALCIUM 9.4 MG/DL (8.5-10.1); CARBON DIOXIDE 27 MMOL/L (21-32); CHLORIDE 99 MMOL/L (98-107); CREATININE SERUM 1.06 MG/DL (0.60-1.30); GFR ESTIMATED > 60; GLUCOSE 136 MG/DL (70-105); MAGNESIUM 1.6 MG/DL (1.8-2.4); POTASSIUM 4.3 MMOL/L (3.6-5.0); SODIUM 135 MMOL/L (135-145); TOTAL PROTEIN 5.9 G/DL (6.4-8.2); hs C REACTIVE PROTEIN 2.42 MG/DL (0.00-0.50)
[2017-01-05 16:13] LABS: DIGOXIN 0.42 NG/ML (0.80-2.00)
--- NOTE | 2017-01-05 16:23 | Diagnostic Imaging Report ---
Acute abdominal series. INDICATION: Nausea. Abdominal pain. FINDINGS: The lungs demonstrate no significant consolidation. The minimal atelectasis or scarring is seen in the left lung base. The heart size is normal. Pacemaker with two cardiac leads seen. No effusion or pneumothorax. There is no pneumoperitoneum. Surgical clips in the upright abdomen seen. There is mild distention of the stomach and minimal dilatation of a few small bowel loops with air-fluid levels seen. There is fecal material seen in the rectum. A 1 cm left flank calcification compatible with lower pole left kidney stone is seen as confirmed on recent CT scan. IMPRESSION: 1. Nonspecific minimal dilatation of small bowel loops with air-fluid levels may relate to reactive ileus from underlying enteritis or other inflammatory process. No significant change from 01/02/2017 seen. 2. A 1 cm left kidney stone. Dictated by: Dictated on workstation # [id number]
[2017-01-05] MEDS ORDERED: CATHETER FLUSH 10 ML SYR IV PRN (19:15)
[2017-01-05] MEDS ORDERED: fentaNYL INJECTION 100 MCG/2 ML AMP IV PRN (19:15)
[2017-01-05] MEDS ORDERED: ONDANSETRON 4 MG/2 ML (SDV) Z0FRAN IV PRN (19:15)
[2017-01-05] MEDS: NS IV 1000 ML 1,000 ML IV SCH (19:44)
[2017-01-05 20:03] VITALS: BP 141/63
[2017-01-05] MEDS ORDERED: METF500T8 PO (22:52)
[2017-01-05] MEDS ORDERED: FURO20TA4 PO (22:54)
[2017-01-05] MEDS ORDERED: OXYB5TAB9 PO (22:56)
[2017-01-06 00:30] VITALS: BP 149/67
[2017-01-06 04:20] VITALS: BP 126/58
[2017-01-06 04:40] LABS: BASOPHILS % (AUTO) 0 % (0-10); EOSINOPHILS # (AUTO) 0.4 10^3/uL (0.0-0.3); EOSINOPHILS % (AUTO) 7 % (0-10); LYMPHOCYTES # (AUTO) 1.7 X 10^3 (1.0-4.0); LYMPHOCYTES % (AUTO) 29 % (12-44); MEAN CORPUSCULAR HEMOGLOBIN 31 PG (25-34); MEAN CORPUSCULAR HGB CONC 33 G/DL (32-36); MEAN CORPUSCULAR VOLUME 92 FL (80-99); MEAN PLATELET VOLUME 10.5 FL (7.4-10.4); MONOCYTES # (AUTO) 0.8 X 10^3 (0.0-1.0); MONOCYTES % (AUTO) 13 % (0-12); NEUTROPHILS # (AUTO) 2.9 X 10^3 (1.8-7.8); NEUTROPHILS % (AUTO) 50 % (42-75); PLATELET COUNT 131 10^3/uL (130-400); RED BLOOD COUNT 3.93 10^6/uL (4.35-5.85); RED CELL DISTRIBUTION WIDTH 12.5 % (10.0-14.5); WHITE BLOOD COUNT 5.8 10^3/uL (4.3-11.0)
[2017-01-06 05:00] LABS: ANION GAP 9 MMOL/L (5-14); BLOOD UREA NITROGEN 17 MG/DL (7-18); BUN/CREATININE RATIO 20; CALCIUM 8.2 MG/DL (8.5-10.1); CARBON DIOXIDE 23 MMOL/L (21-32); CHLORIDE 106 MMOL/L (98-107); CREATININE SERUM 0.84 MG/DL (0.60-1.30); GFR ESTIMATED > 60; GLUCOSE 92 MG/DL (70-105); POTASSIUM 4.1 MMOL/L (3.6-5.0); SODIUM 138 MMOL/L (135-145)
[2017-01-06] MEDS: NS IV 1000 ML 1,000 ML IV SCH (06:09)
[2017-01-06 07:35] VITALS: BP 133/63
[2017-01-06] MEDS ORDERED: DIGO125T PO (10:18)
[2017-01-06] MEDS ORDERED: ATOR80TA76 PO (10:18)
[2017-01-06] MEDS ORDERED: ACET-2267 PO (10:22)
[2017-01-06] MEDS ORDERED: NEOM10DR42 EACH EAR (10:22)
[2017-01-06] MEDS ORDERED: LORA10TA7 PO (10:22)
[2017-01-06] MEDS ORDERED: HYOS0.1218 SL (10:25)
[2017-01-06] MEDS ORDERED: FAMO20TA3 PO (10:25)
[2017-01-06] MEDS ORDERED: ONDA8TAB9 PO (10:25)
[2017-01-06 11:35] VITALS: BP 150/65
--- NOTE | 2017-01-06 14:38 | History & Physical-Hospitalist ---
HPI History of Present Illness: HPI/Chief Complaint the patient's an 81-year-old white male whom I have known for a period of 35 years or more. He had been admitted to observation after having presented for his third ER visit in 3 days. He had been CT on a previous immediate visit. So no repeat was made yesterday. A KUB was done which showed showed a gassy pattern consistent with ileus but no evidence of obstruction. His past history is positive for a hemicolectomy and colostomy done about 11 years ago. This was apparently for obstruction but no tumor. He reported that he was having many more liquid stools then was his customary. He was having inability to keep up with fluids. Source: patient Exam Limitations: no limitations Date Seen 01/06/17 Attending Physician Ilia Oliver MD PCP Niall Moya MD Referring Physician Date of Admission Jan 05, 2017 at 18:45 Home Medications & Allergies Home Medications Reviewed patient Home Medication Reconciliation Form Allergies Allergies Coded Allergies No Known Drug Allergies (Unverified01/05/17) Past Syekomo-Wgksqw-Ebiqpy Hx Patient Social History Marrital Status: Employed/Student: retired Alcohol Use: Denies Use Recreational Drug Use: No Smoking Status: Former Smoker 2nd Hand Smoke Exposure: No Physical Abuse Screen: No Sexual Abuse: No Recent Foreign Travel: No Contact w/other who traveled: No Recent Hopitalizations: No Recent Infectious Disease Expo: No Immunizations Up To Date Date of Pneumonia Vaccine: Nov 11, 2016 Date of Influenza Vaccine: Jul 11, 2016 Seasonal Allergies Seasonal Allergies: No Surgeries HX Surgeries: Yes (colon, cataracts removed) Surgeries: Appendectomy, Gallbladder Respiratory Hx Respiratory Disorders: No Cardiovascular Hx Cardiovascular Disorders: Yes Cardiac Disorders: Hypertension Neurological Hx Neurological Disorders: No Reproductive System Hx Reproductive Disorders: No Genitourinary Hx Genitourinary Disorders: No Gastrointestinal Hx Gastrointestinal Disorders: Yes Gastrointestinal Disorders: Gastroesophageal Reflux Musculoskeletal Hx Musculoskeletal Disorders: No Endocrine Hx Endocrine Disorders: No HEENT HX ENT Disorders: No Cancer Cancer: Melanoma Psychosocial Hx Psychiatric Problems: No Integumentary HX Skin/Integumentary Disorder: No Blood Transfusions Hx Blood Disorders: No Reviewed Nursing Assessment Reviewed/Agree w Nursing PMH: Yes Family Medical History Family Hx: DVT 19 MOTHER FH: renal failure 19 FATHER Review of Systems Constitutional: see HPI EENTM: no symptoms reported Respiratory: no symptoms reported Cardiovascular: no symptoms reported Gastrointestinal: see HPI Genitourinary: decreased output Musculoskeletal: muscle weakness Skin: no symptoms reported Psychiatric/Neurological: No Symptoms Reported Physical Exam Physical Exam Vital Signs Vital Sign - Last 12Hours 01/05/17 01/05/17 15:11 19:00 Temp 98.1 Pulse 86 Resp 16 B/P (MAP) 160/69 Pulse Ox 97 O2 Delivery Room Air Capillary Refill : Less Than 3 Seconds General Appearance: No Apparent Distress, WD/WN Eyes: Bilateral Eye Normal Inspection HEENT: Normal ENT Inspection Neck: Normal Inspection Respiratory: Chest Non Tender, Lungs Clear, Normal Breath Sounds, No Accessory Muscle Use, No Respiratory Distress Cardiovascular: Regular Rate, Rhythm, No Edema, No Gallop, No JVD, No Murmur, Normal Peripheral Pulses Gastrointestinal: Other (no tenderness palpation the abdomen seems rather tightly distended and is tympanitic) Back: No CVA Tenderness Extremity: Normal Capillary Refill, Normal Inspection, Normal Range of Motion, Non Tender, No Calf Tenderness, No Pedal Edema Neurologic/Psychiatric: Alert, Oriented x3, No Motor/Sensory Deficits, Normal Mood/Affect Skin: Normal Color, Warm/Dry Lymphatic: No Adenopathy Results Results/Procedures Lab Laboratory Tests 01/05/17 15:35 01/06/17 04:25 Assessment/Plan Admission Diagnosis gastroenteritis Assessment and Plan he is feeling considerably better after hydration and will be discharged Clinical Quality Measures DVT/VTE Risk/Contraindication: Risk Factor Score Per Nursin RFS Level Per Nursing on Admit: 4+=Very High ILIA OLIVER MD Jan 06, 2017 14:38
[2017-01-06] MEDS ORDERED: ONDANSETRON 8 MG (ZOFRAN) ORAL DISSOLVE TAB PO PRN (14:45)
--- NOTE | 2017-01-06 14:45 | Discharge Inst-Simple/Standard ---
Discharge Inst-Standard Discharge Medications New, Converted or Re-Newed RX: RX on Chart Patient Instructions/Follow Up Plan of Care/Instructions/FU: continue liquid diet for 24-48 hours. Gatorade and 7-Up are useful. The diet can then be advanced beginning with broth, soup, dry toast, soda crackers as tolerated Activity as Tolerated: Yes Goal: restorationist to previous status Discharge Diet: Other Diet (see above) Return to The Hospital For: Change in condition NIKITA OLIVER MD Jan 06, 2017 14:45
[2017-01-06 15:14] VITALS: BP 150/65
[2017-01-06] MEDS ORDERED: TERAZOSIN 5 MG (HYTRIN) CAPSULE PO SCH (21:00)
[2017-01-06] MEDS ORDERED: FAMOTIDINE 20 MG (PEPCID) TABLET PO SCH (21:00)
[2017-01-07] MEDS ORDERED: ENALAPRIL 10 MG (VASOTEC) TAB PO SCH (09:00)
[2017-01-07] MEDS ORDERED: OXYBUTYNIN (DITROPAN) 5 MG TAB PO SCH (09:00)
[2017-01-07] MEDS ORDERED: ATENOLOL 50 MG (TENORMIN) TAB PO SCH (09:00)
[2017-01-07] MEDS ORDERED: FUROSEMIDE 20 MG (LASIX) TAB PO SCH (09:00)
[2017-01-07] MEDS ORDERED: DIGOXIN 0.125 MG (LANOXIN) TAB PO SCH (09:00)
[2017-01-07] MEDS ORDERED: ASPIRIN E.C. 81 MG (ECOTRIN) TAB PO SCH (09:00)
[2017-01-07] MEDS ORDERED: metFORMIN XR 500 MG (GLUCOPHAGE XR) TAB PO SCH (09:00)
[2017-01-07] MEDS ORDERED: LORATADINE (CLARITIN) 10 MG TAB PO SCH (09:00)
[2017-01-07] MEDS ORDERED: ATORVASTATIN 80 MG (LIPITOR) TABLET PO SCH (09:00)
== END 2017-01-06 14:42 | disposition home or self-care (01) ==
LOC: DELPENDDIS → EDUNIT# 15:08 → ER 15:09 → 4TH 17:30 → UNDOADMOB 17:30 → 4TH 18:45
PROVIDERS: ADMIT Internal Medicine; ATTEND Internal Medicine
DX: K52.9 Noninfective gastroenteritis and colitis, unspecified (principal); R53.1 Weakness; N20.0 Calculus of kidney; I10 Essential (primary) hypertension; E11.9 Type 2 diabetes mellitus without complications; Z79.82 Long term (current) use of aspirin; Z79.84 Long term (current) use of oral hypoglycemic drugs; Z79.899 Other long term (current) drug therapy; Z95.0 Presence of cardiac pacemaker; Z87.891 Personal history of nicotine dependence; Z93.3 Colostomy status
CPT/HCPCS: 36415; 74022; 80048; 80053; 80162; 82962; 83690; 83735; 85025; 86141; 96361; 96374; G0378

== ENCOUNTER → 2017-01-27 | Outpatient (CLI) | payer MEDICARE ==
[~2017-01-27] MED LIST changes: +ACET-2267 PO; +ATOR80TA76 PO; +DIGO125T PO; +FAMO20TA3 PO; +FURO20TA4 PO; +HYOS0.1218 SL; +LORA10TA7 PO; +METF500T8 PO; +NEOM10DR42 EACH EAR; +ONDA8TAB9 PO; +OXYB5TAB9 PO
--- NOTE | 2017-01-29 07:23 | ECHOCARDIOGRAPHY REPORT ---
DATE OF SERVICE: 2D ECHOCARDIOGRAM REFERRING PHYSICIAN: Dr. Moya. TEST DATE: 01/27/2017. INDICATION: Atrial fibrillation, coronary artery disease. MEASUREMENT: LVID end diastolic 3.3, IVS thickness 1.4, LVPW thickness 1.2, left atrial diameter 3.6, ejection fraction 60%. FINDINGS: 1. Technical quality is good. 2. The left ventricle is normal in size with moderate left ventricular hypertrophy noted diffusely, more pronounced at the base of the septum giving the septum a sigmoid shape. Systolic function appeared to be normal. Estimated ejection fraction is 60%. 3. The left atrium is normal in size. No clots or thrombus were seen within the left atrium. 4. The right atrium and right ventricle are normal in size. No clots or thrombus were seen within the right side. 5. Mitral valve is calcified with mild mitral regurgitation noted by carotid Doppler flow. No mitral valve prolapse. No mitral valve stenosis. 6. The aortic valve is calcified. No significant aortic valve stenosis was noted. Mild aortic regurgitation was noted by carotid Doppler flow. 7. The tricuspid valve is normal in morphology with mild tricuspid regurgitation noted by carotid Doppler flow, Doppler echo of the tricuspid valve. Estimated pulmonary artery pressure of 4 plus right atrial pressure. 8. Pulmonic valve is functioning normally. 9. No pericardial effusion. CONCLUSION: 1. Moderate left ventricular hypertrophy noted diffusely more pronounced at the base of the septum giving the septum a sigmoid shape. Systolic function is normal. Estimated ejection fraction is 60%. 2. Aortic valve sclerosis. No aortic stenosis. Mild aortic regurgitation. 3. Mild mitral and tricuspid regurgitation. 4. Estimated pulmonary artery pressure of 10 mmHg. Job ID: [id number] DocumentID: [id number] Dictated Date: 01/27/2017 17:42:41 Investment Accountant Date: 01/27/2017 19:55:29 Dictated By: NICOLAS OLSON MD
== END ==
LOC: CARD 14:44
PROVIDERS: ATTEND Internal Medicine Cardiovascular Disease
DX: I48.91 Unspecified atrial fibrillation (principal); I25.10 Atherosclerotic heart disease of native coronary artery without angina pectoris; E78.1 Pure hyperglyceridemia; I34.0 Nonrheumatic mitral (valve) insufficiency; I27.2 Other secondary pulmonary hypertension; I07.1 Rheumatic tricuspid insufficiency
CPT/HCPCS: 93306

== ENCOUNTER → 2017-02-01 | Outpatient (CLI) | payer MEDICARE ==
[~2017-02-01] MED LIST changes: +CATHETER FLUSH 10 ML SYR IV PRN; +REGADENOSON 0.4 MG/5 ML SYR (LEXISCAN) IV ONE
[2017-02-01 09:28] VITALS: BP 159/81
--- NOTE | 2017-02-01 13:22 | STRESS TEST ---
DATE OF SERVICE: 02/01/2017 LEXISCAN MYOVIEW STRESS TEST REFERRING PHYSICIAN: Dr. Moya Baseline heart rate is 61. Baseline blood pressure 158/75. Baseline EKG is sinus rhythm with no ischemic changes. In summary, the patient was injected with 10.82 mCi of technetium-99 Myoview and the resting images were obtained. Then the patient received 0.4 mg of Lexiscan followed by 30.2 mCi of technetium-99 Myoview. Throughout the test, there were no EKG changes. The resting and stress images were reviewed and compared on the short axis, horizontal long axis and vertical long axis views. Review of the images showed diaphragmatic attenuation with fixed defect involving the mid to apical inferior wall with no significant reversibility. SSS is 7. SDS 0. TID value 0.97. On the gaited images the left ventricle appears to be normal size with normal contractility. Calculated ejection fraction 63%. CONCLUSION: 1. The patient tolerated Lexiscan well. 2. Diaphragmatic attention with typical male pattern. No significant ischemia was noted. 3. Normal left ventricular size with normal contractility. Calculated ejection fraction 63%. Job ID: [id number] DocumentID: [id number] Dictated Date: 02/01/2017 12:14:07 Java Programmer Date: 02/01/2017 12:58:42 Dictated By: NICOLAS OLSON MD
== END ==
LOC: CARD 08:31
PROVIDERS: ATTEND Internal Medicine Cardiovascular Disease
DX: I48.91 Unspecified atrial fibrillation (principal); I25.10 Atherosclerotic heart disease of native coronary artery without angina pectoris; E78.1 Pure hyperglyceridemia; I34.0 Nonrheumatic mitral (valve) insufficiency; I27.2 Other secondary pulmonary hypertension; I07.1 Rheumatic tricuspid insufficiency
CPT/HCPCS: 78452; 93017

== ENCOUNTER 2018-07-17 17:24 | Emergency (ER) | payer MEDICARE ==
[~2018-07-17] VITALS: Ht 165.1 cm; Wt 79.4 kg
[~2018-07-17 17:24] MED LIST changes: -CATHETER FLUSH 10 ML SYR IV PRN; +HYOS-19 SL; -HYOS0.1218 SL; -REGADENOSON 0.4 MG/5 ML SYR (LEXISCAN) IV ONE
--- OUTSIDE RECORDS SUMMARY | 2018-07-17 17:31 | XMS REPORT ---
Author Author GAMA MASSEY Organization [facility] Address [address] [place] [address] Care Team Providers Care Collet Gluer Name Role Phone GAMA MASSEY Unavailable PROBLEMS Unknown Problems ALLERGIES No Known Allergies ENCOUNTERS Encounter Location Date Diagnosis [facility] [address] [facility] [id number] [id number] Dec, Encounter for dental examination Z01.20 IMMUNIZATIONS No Known Immunizations SOCIAL HISTORY Never Assessed REASON FOR VISIT prophy PLAN OF CARE Activity Details Follow Up 6 Months Reason:Recall VITAL SIGNS Blood pressure systolic 131 mmHg 2017-12-28 Blood pressure diastolic 69 mmHg 2017-12-28 MEDICATIONS Medication Instructions Dosage Frequency Start Date End Date Duration Status Plavix Active Metformin & Diet Manage Prod Active RESULTS No Results PROCEDURES Procedure Date Ordered Result Body Site COMP ORAL EVALUATION - NEW/EST PT December 28, 2017 INTRAORL-PERIAPICAL 1 FILM [id number] December 28, 2017 TOPICAL FLUORIDE VARNISH December 28, 2017 PROPHYLAXIS - ADULT December 28, 2017 INTRAORL-PERIAPICAL EA ADD FILM December 28, 2017 INTRAORL-PERIAPICAL EA ADD FILM December 28, 2017 PANORAMIC FILM SEE ALSO CODE [id number] December 28, 2017 BITEWINGS - FOUR FILMS December 28, 2017 INSTRUCTIONS MEDICATIONS ADMINISTERED No Known Medications MEDICAL (GENERAL) HISTORY Type Description Date Medical History Heart Disease Medical History High Blood Pressure Medical History Cardiac Pacemaker Medical History Type I diabetes Surgical History Cardiac Stints and pacemaker 2007 Surgical History Colonoscopy 2008 Hospitalization History Hospitalization for surgery only 2007
[2018-07-17 18:07] LABS: BASOPHILS # (AUTO) 0.1 10^3/uL (0.0-0.1); BASOPHILS % (AUTO) 1 % (0-10); EOSINOPHILS # (AUTO) 0.6 10^3/uL (0.0-0.3); EOSINOPHILS % (AUTO) 9 % (0-10); HEMATOCRIT 37 % (40-54); HEMOGLOBIN 12.3 G/DL (13.3-17.7); LYMPHOCYTES # (AUTO) 1.6 X 10^3 (1.0-4.0); LYMPHOCYTES % (AUTO) 25 % (12-44); MEAN CORPUSCULAR HEMOGLOBIN 31 PG (25-34); MEAN CORPUSCULAR HGB CONC 34 G/DL (32-36); MEAN CORPUSCULAR VOLUME 93 FL (80-99); MEAN PLATELET VOLUME 10.8 FL (7.4-10.4); MONOCYTES # (AUTO) 0.5 X 10^3 (0.0-1.0); MONOCYTES % (AUTO) 7 % (0-12); NEUTROPHILS # (AUTO) 3.7 X 10^3 (1.8-7.8); NEUTROPHILS % (AUTO) 58 % (42-75); PLATELET COUNT 175 10^3/uL (130-400); RED BLOOD COUNT 3.94 10^6/uL (4.35-5.85); RED CELL DISTRIBUTION WIDTH 12.9 % (10.0-14.5); WHITE BLOOD COUNT 6.3 10^3/uL (4.3-11.0)
--- NOTE | 2018-07-17 18:16 | ED Abdominal Pain ---
General Chief Complaint: Abdominal/GI Problems Stated Complaint: BLOOD IN STOOL Nursing Triage Note: PT PRESENTS TO ER WITH COMPLAINT OF BRIGHT RED BLOOD IN COLOSTOMY TODAY AND YESTERDAY. DENIES ANY PAIN. Sepsis Screen: No Definite Risk Source of Information: Patient Exam Limitations: No Limitations History of Present Illness Date Seen by Provider: Jul 17, 2018 Time Seen by Provider: 17:41 Initial Comments Patient is an 82-year-old male who presents to the emergency room with onset of bright red blood in his colostomy bag for the past 2 days. He reports that his colostomy for the past 12 years and has never experienced anything like this before. He denies any abdominal pain, nausea, vomiting, constipation. Reports he takes Eliquis. Fecal occult bedside test was positive on arrival to ED. No blood visualized in colostomy bag. Timing/Duration: 1-2 Days Associated Symptoms: Denies Symptoms Allergies and Home Medications Allergies Coded Allergies: No Known Drug Allergies (Unverified , 01/05/17) Home Medications Acetaminophen 500 Mg Tablet, 500-1,000 MG PO Q4H PRN for PAIN, (Reported) Aspirin 81 Mg Tabec, 81 MG PO DAILY, (Reported) Atenolol 100 Mg Tablet, 100 MG PO DAILY, (Reported) Atorvastatin Calcium 80 Mg Tablet, 40 MG PO DAILY, (Reported) TAKES 1/2 (80MG) TABLET Digoxin 125 Mcg Tablet, 125 MCG PO DAILY, (Reported) Enalapril Maleate 10 Mg Tablet, 5 MG PO DAILY, (Reported) TAKES 1/2 (10MG) TABLET Famotidine 20 Mg Tablet, 20 MG PO BID, (Reported) FILLED #20 01-03-17 Finasteride 5 Mg Tablet, 5 MG PO DAILY, (Reported) Furosemide 20 Mg Tablet, 20 MG PO DAILY, (Reported) Hyoscyamine Sulfate 0.125 Mg Tab.subl, 0.125 MG SL Q6H PRN for PAIN, (Reported) #14 FILLED 01-03-17 Loratadine 10 Mg Tablet, 10 MG PO DAILY, (Reported) Metformin HCl 500 Mg Tab.er.24h, 500 MG PO DAILY, (Reported) Neomycin/Polymyxin B Sulf/Hc 10 Ml Drops.susp, 3 DROPS EACH EAR TID PRN for EAR PAIN, (Reported) Ondansetron 8 Mg Tab.rapdis, 8 MG PO Q6H PRN for NAUSEA, (Reported) #10 FILLED 01-03-17 Oxybutynin Chloride 5 Mg Tablet, 5 MG PO DAILY, (Reported) Terazosin Hcl 5 Mg Capsule, 5 MG PO BID, (Reported) Patient Home Medication List Home Medication List Reviewed: Yes Review of Systems Review of Systems Constitutional: see HPI; No chills, No fever Gastrointestinal: See HPI, Other (blood in colstomy bag.) All Other Systems Reviewed Negative Unless Noted: Yes Past Nmomilf-Ygtcmy-Wafblk Hx Past Med/Social Hx: Reviewed Nursing Past Med/Soc Hx Patient Social History Alcohol Use: Denies Use Recreational Drug Use: No Smoking Status: Never a Smoker Former Smoker, Quit: Jan 06, 1988 2nd Hand Smoke Exposure: No Recent Foreign Travel: No Contact w/Someone Who Travel: No Recent Infectious Disease Expo: No Recent Hopitalizations: No Immunizations Up To Date Tetanus Booster (TDap): Unknown Date of Pneumonia Vaccine: Nov 11, 2016 Date of Influenza Vaccine: Jul 11, 2016 Seasonal Allergies Seasonal Allergies: No Past Medical History Surgeries: Yes (colon, cataracts removed) Abdominal, Appendectomy, Gallbladder Respiratory: No Cardiac: Yes (PACEMAKER, STENTS) Hypertension Neurological: No Reproductive Disorders: No Genitourinary: No Gastrointestinal: Yes (COLOSTOMY) Gastroesophageal Reflux Musculoskeletal: No Endocrine: Yes HEENT: No Cancer: Yes Melanoma Psychosocial: No Integumentary: No Blood Disorders: No Family Medical History Reviewed Nursing Family Hx DVT 19 MOTHER FH: renal failure 19 FATHER Physical Exam Vital Signs Vital Signs - First Documented 07/17/18 17:41 Temp 98.1 Pulse 86 Resp 18 B/P (MAP) 170/90 (116) Pulse Ox 96 O2 Delivery Room Air Capillary Refill : Less Than 3 Seconds Height/Weight/BMI Height: 5'5.00" Weight: 175lbs. 12.0oz. [id number]; 28.4 BMI Method:Stated General Appearance: WD/WN, no apparent distress Respiratory: chest non-tender, lungs clear, normal breath sounds, no respiratory distress, no accessory muscle use Cardiovascular: normal peripheral pulses, regular rate, rhythm, no edema, no gallop, no JVD, no murmur Gastrointestinal: normal bowel sounds, non tender, soft, no organomegaly, no pulsatile mass, other (cosltomy bag with liquid stool in it. No blood visualized. ) Rectal: heme positive stool Neurologic/Psychiatric: alert, normal mood/affect, oriented x 3 Skin: normal color, warm/dry Progress/Results/Core Measures Results/Orders Lab Results Laboratory Tests Test 07/17/18 17:53 07/17/18 19:00 Range/Units White Blood Count 6.3 4.3-11.0 10^3/uL Red Blood Count 3.94 L 4.35-5.85 10^6/uL Hemoglobin 12.3 L 13.3-17.7 G/DL Hematocrit 37 L 40-54 % Mean Corpuscular Volume 93 80-99 FL Mean Corpuscular Hemoglobin 31 25-34 PG Mean Corpuscular Hemoglobin Concent 34 32-36 G/DL Red Cell Distribution Width 12.9 10.0-14.5 % Platelet Count 175 130-400 10^3/uL Mean Platelet Volume 10.8 H 7.4-10.4 FL Neutrophils (%) (Auto) 58 42-75 % Lymphocytes (%) (Auto) 25 12-44 % Monocytes (%) (Auto) 7 0-12 % Eosinophils (%) (Auto) 9 0-10 % Basophils (%) (Auto) 1 0-10 % Neutrophils # (Auto) 3.7 1.8-7.8 X 10^3 Lymphocytes # (Auto) 1.6 1.0-4.0 X 10^3 Monocytes # (Auto) 0.5 0.0-1.0 X 10^3 Eosinophils # (Auto) 0.6 H 0.0-0.3 10^3/uL Basophils # (Auto) 0.1 0.0-0.1 10^3/uL Sodium Level 138 135-145 MMOL/L Potassium Level 3.9 3.6-5.0 MMOL/L Chloride Level 103 98-107 MMOL/L Carbon Dioxide Level 25 21-32 MMOL/L Anion Gap 10 5-14 MMOL/L Blood Urea Nitrogen 14 7-18 MG/DL Creatinine 0.88 0.60-1.30 MG/DL Estimat Glomerular Filtration Rate > 60 BUN/Creatinine Ratio 16 Glucose Level 151 H 70-105 MG/DL Calcium Level 9.6 8.5-10.1 MG/DL Corrected Calcium 9.8 8.5-10.1 MG/DL Total Bilirubin 0.6 0.1-1.0 MG/DL Aspartate Amino Transf (AST/SGOT) 36 H 5-34 U/L Alanine Aminotransferase (ALT/SGPT) 41 0-55 U/L Alkaline Phosphatase 48 40-136 U/L Total Protein 6.5 6.4-8.2 GM/DL Albumin 3.8 3.2-4.5 GM/DL Urine Color YELLOW Urine Clarity CLEAR Urine pH 5 5-9 Urine Specific Alexander 1.010 L 1.016-1.022 Urine Protein 2+ H NEGATIVE Urine Glucose (UA) NEGATIVE NEGATIVE Urine Ketones NEGATIVE NEGATIVE Urine Nitrite NEGATIVE NEGATIVE Urine Bilirubin NEGATIVE NEGATIVE Urine Urobilinogen NORMAL NORMAL MG/DL Urine Leukocyte Esterase NEGATIVE NEGATIVE Urine RBC (Auto) 1+ H NEGATIVE Urine RBC NONE /HPF Urine WBC NONE /HPF Urine Squamous Epithelial Cells 2-5 /HPF Urine Crystals NONE /LPF Urine Bacteria NEGATIVE /HPF Urine Casts NONE /LPF Urine Mucus NEGATIVE /LPF Urine Culture Indicated NO My Orders Orders - ALEXANDREA VALENTINO Cbc With Automated Diff (07/17/18 17:56) Comprehensive Metabolic Panel (07/17/18 17:56) Type And Screen (07/17/18 17:56) Ct Abdomen/Pelvis W (07/17/18 18:34) Ns Iv 500 Ml (Sodium Chloride 0.9%) (07/17/18 18:45) Iohexol Injection (Omnipaque 350 Mg/Ml 1 (07/17/18 19:00) Ns (Ivpb) (Sodium Chloride 0.9%) (07/17/18 19:00) Ua Culture If Indicated (07/17/18 18:59) Medications Given in ED Current Medications Medications Dose Ordered Sig/Rich Route Start Time Stop Time Status Last Admin Dose Admin Iohexol 100 ml ONCE ONCE IV 07/17/18 19:00 07/17/18 20:23 DC 07/17/18 19:05 100 ML Sodium Chloride 250 ml ONCE ONCE IV 07/17/18 19:00 07/17/18 20:23 DC 07/17/18 19:05 80 ML Vital Signs/I&O 07/17/18 07/17/18 17:41 20:24 Temp 98.1 98.0 Pulse 86 83 Resp 18 16 B/P (MAP) 170/90 (116) 178/84 (115) Pulse Ox 96 96 O2 Delivery Room Air Room Air Blood Pressure Mean: 116 Progress Progress Note : Time: 20:00 Progress Note I have seen and evaluated the patient. I have informed him of imaging studies and laboratory findings. I have spoke to Dr. Gonzalez at this time and have discussed the case. He believes that the patient can be follow in his office this week for repeat labs and the possible need of a colonoscopy. The patient agrees with plan of care. Return precautions were given. Diagnostic Imaging Diagonstic Imaging: CT Plain Films/CT/US/NM/MRI: abdomen, pelvis Comments NAME: ROSANNE CHAKRABORTY [facility] REC#: [id number] PHYSICIAN: ALEXANDREA VALENTINO CC: ALEXANDREA VALENTINO; NOAH HENDERSON MD Page 2 of 2 RADIOLOGY REPORT VIA [place], [place] CC: ALEXANDREA VALENTINO; NOAH HENDERSON MD Page 1 of 1 RADIOLOGY REPORT NAME: ROSANNE CHAKRABORTY [facility] REC#: [id number] PT STATUS: REG ER : 1935 PHYSICIAN: ALEXANDREA VALENTINO ADMIT DATE: 07/17/18/ER Signed Date of Exam: 07/17/18 CT ABDOMEN/PELVIS W PROCEDURE: CT abdomen and pelvis with contrast. TECHNIQUE: Multiple contiguous axial images were obtained through the abdomen and pelvis after administration of intravenous contrast. INDICATION: Blood in stools. Left lower quadrant ostomy. COMPARISON: 01/02/2017. FINDINGS: Lower chest: Chronic linear atelectasis/scar within the lingula and middle lobe. No pericardial or pleural effusion. Peritoneum: No free intraperitoneal air or fluid. Liver and biliary system: Diffuse hypoattenuation of the liver is compatible with diffuse hepatic steatosis. No focal hepatic lesion. Cholecystectomy. No pathologic biliary duct dilatation. Spleen and Pancreas: Spleen is normal. The pancreas enhances normally without mass lesion or peripancreatic inflammatory changes. Adrenals: Normal. tract: The kidneys enhance normally without suspicious mass or obstruction. Stable 8 mm nonobstructing stone in the lower pole of the left kidney. Urinary bladder is distended without wall thickening. Prostate is mildly enlarged measuring 5.2 x 5.4 cm, and is unchanged. GI tract: Stomach is partially distended with fluid and air and there is no wall thickening. No bowel obstruction. Surgical changes from distal colon resection and diverting left lower quadrant ostomy. A Raul pouch is present. There is diverticulosis of the residual descending colon along with diverticulosis of the Raul pouch. No features of acute diverticulitis. Vasculature and Lymph nodes: Normal caliber aorta with extensive atherosclerotic plaquing. No abdominal or pelvic lymphadenopathy. Musculoskeletal: No concerning osseous lesion. IMPRESSION: 1. No acute inflammatory or obstructive process in the abdomen or pelvis. 2. Distal colectomy with diverting left lower quadrant ostomy. Diverticulosis of the descending colon and Raul pouch without acute diverticulitis. 3. Stable 8 mm nonobstructing stone in the lower pole of the left kidney. Dictated by: Dictated on workstation # [id number] Dict: 07/17/181919 Trans: 07/17/181943 Interpreted by: NOAH HENDERSON MD Electronically signed by: NOAH HENDERSON MD 07/17/181943 Reviewed: Reviewed by Me Departure Impression Primary Impression: GI bleed Disposition: 01 HOME, SELF-CARE Condition: Stable/Unchanged Departure-Patient Inst. Decision time for Depature: 20:14 Referrals: NICKY GONZALEZ RICK D MD (PCP/Family) Primary Care Physician Patient Instructions: Gastrointestinal Bleeding (DC) Add. Discharge Instructions: Follow-up with Dr. Gonzalez within 1 week for recheck. Call first thing tomorrow morning for an appointment time. Follow-up with Dr. Moya within 1 week for recheck. Return back to the emergency room for any worsening bleeding, lightheadedness, dizziness, abdominal pain, or any other concerns as needed. All discharge instructions reviewed with patient and/or family. Voiced understanding. ALEXANDREA VALENTINO Jul 17, 2018 18:16
[2018-07-17 18:21] LABS: ALANINE AMINOTRANSFERASE 41 U/L (0-55); ALBUMIN 3.8 GM/DL (3.2-4.5); ALKALINE PHOSPHATASE 48 U/L (40-136); BILIRUBIN,TOTAL 0.6 MG/DL (0.1-1.0); BUN/CREATININE RATIO 16; CALCIUM 9.6 MG/DL (8.5-10.1); CARBON DIOXIDE 25 MMOL/L (21-32); CHLORIDE 103 MMOL/L (98-107); CREATININE SERUM 0.88 MG/DL (0.60-1.30); GFR ESTIMATED > 60; GLUCOSE 151 MG/DL (70-105); POTASSIUM 3.9 MMOL/L (3.6-5.0); SODIUM 138 MMOL/L (135-145); TOTAL PROTEIN 6.5 GM/DL (6.4-8.2)
[2018-07-17] MEDS ORDERED: NS IV 500 ML 500 ML IV SCH (18:45)
[2018-07-17] MEDS ORDERED: IOHEXOL 350 MG/ML 100 ML (OMNIPAQUE 350) VIAL IV ONE (19:00)
[2018-07-17] MEDS ORDERED: NS 250 ML (IVPB) BAG IV ONE (19:00)
[2018-07-17 19:03] LABS: BILIRUBIN,URINE NEGATIVE (NEGATIVE); CLARITY,URINE CLEAR; COLOR,URINE YELLOW; GLUCOSE, URINE (UA) NEGATIVE (NEGATIVE); KETONES,URINE NEGATIVE (NEGATIVE); NITRITE,URINE NEGATIVE (NEGATIVE); PH,URINE 5 (5-9); PROTEIN,URINE 2+ (NEGATIVE)
[2018-07-17 19:04] LABS: LEUKOCYTE ESTERASE ,URINE NEGATIVE (NEGATIVE); UROBILINOGEN,URINE NORMAL (NORMAL)
[2018-07-17 19:14] LABS: BACTERIA,URINE NEGATIVE /HPF
--- NOTE | 2018-07-17 19:30 | Diagnostic Imaging Report ---
PROCEDURE: CT abdomen and pelvis with contrast. TECHNIQUE: Multiple contiguous axial images were obtained through the abdomen and pelvis after administration of intravenous contrast. INDICATION: Blood in stools. Left lower quadrant ostomy. COMPARISON: 01/02/2017. FINDINGS: Lower chest: Chronic linear atelectasis/scar within the lingula and middle lobe. No pericardial or pleural effusion. Peritoneum: No free intraperitoneal air or fluid. Liver and biliary system: Diffuse hypoattenuation of the liver is compatible with diffuse hepatic steatosis. No focal hepatic lesion. Cholecystectomy. No pathologic biliary duct dilatation. Spleen and Pancreas: Spleen is normal. The pancreas enhances normally without mass lesion or peripancreatic inflammatory changes. Adrenals: Normal. tract: The kidneys enhance normally without suspicious mass or obstruction. Stable 8 mm nonobstructing stone in the lower pole of the left kidney. Urinary bladder is distended without wall thickening. Prostate is mildly enlarged measuring 5.2 x 5.4 cm, and is unchanged. GI tract: Stomach is partially distended with fluid and air and there is no wall thickening. No bowel obstruction. Surgical changes from distal colon resection and diverting left lower quadrant ostomy. A Raul pouch is present. There is diverticulosis of the residual descending colon along with diverticulosis of the Raul pouch. No features of acute diverticulitis. Vasculature and Lymph nodes: Normal caliber aorta with extensive atherosclerotic plaquing. No abdominal or pelvic lymphadenopathy. Musculoskeletal: No concerning osseous lesion. IMPRESSION: 1. No acute inflammatory or obstructive process in the abdomen or pelvis. 2. Distal colectomy with diverting left lower quadrant ostomy. Diverticulosis of the descending colon and Raul pouch without acute diverticulitis. 3. Stable 8 mm nonobstructing stone in the lower pole of the left kidney. Dictated by: Dictated on workstation # [id number]
[2018-07-17 20:24] VITALS: BP 178/84
== END 2018-07-17 20:23 | disposition home or self-care (01) ==
LOC: EDUNIT# 17:24 → ER 17:27
DX: K92.2 Gastrointestinal hemorrhage, unspecified (principal); I10 Essential (primary) hypertension; K21.9 Gastro-esophageal reflux disease without esophagitis; Z85.820 Personal history of malignant melanoma of skin; Z93.3 Colostomy status; Z79.01 Long term (current) use of anticoagulants; Z79.82 Long term (current) use of aspirin; Z79.84 Long term (current) use of oral hypoglycemic drugs; Z87.891 Personal history of nicotine dependence; Z90.89 Acquired absence of other organs
CPT/HCPCS: 36415; 74177; 80053; 81000; 85025; 86850; 86900; 86901

== ENCOUNTER 2018-07-21 13:09 | Day surgery (SDC) | payer MEDICARE, BC ==
[~2018-07-21] VITALS: Ht 165.1 cm; Wt 79.7 kg
[2018-07-21 13:48] LABS: BASOPHILS % (AUTO) 1 % (0-10); EOSINOPHILS # (AUTO) 0.4 10^3/uL (0.0-0.3); EOSINOPHILS % (AUTO) 6 % (0-10); HEMATOCRIT 38 % (40-54); HEMOGLOBIN 12.7 G/DL (13.3-17.7); LYMPHOCYTES # (AUTO) 1.6 X 10^3 (1.0-4.0); LYMPHOCYTES % (AUTO) 22 % (12-44); MEAN CORPUSCULAR HEMOGLOBIN 31 PG (25-34); MEAN CORPUSCULAR HGB CONC 33 G/DL (32-36); MEAN CORPUSCULAR VOLUME 92 FL (80-99); MONOCYTES # (AUTO) 0.6 X 10^3 (0.0-1.0); MONOCYTES % (AUTO) 8 % (0-12); NEUTROPHILS # (AUTO) 4.4 X 10^3 (1.8-7.8); NEUTROPHILS % (AUTO) 63 % (42-75); PLATELET COUNT 157 10^3/uL (130-400); RED BLOOD COUNT 4.13 10^6/uL (4.35-5.85); RED CELL DISTRIBUTION WIDTH 12.9 % (10.0-14.5); WHITE BLOOD COUNT 7.1 10^3/uL (4.3-11.0)
[2018-07-21 14:10] LABS: ALANINE AMINOTRANSFERASE 42 U/L (0-55); ALBUMIN 3.9 GM/DL (3.2-4.5); ALKALINE PHOSPHATASE 52 U/L (40-136); BILIRUBIN,TOTAL 0.7 MG/DL (0.1-1.0); BUN/CREATININE RATIO 14; CALCIUM 9.9 MG/DL (8.5-10.1); CARBON DIOXIDE 26 MMOL/L (21-32); CHLORIDE 102 MMOL/L (98-107); CREATININE SERUM 0.91 MG/DL (0.60-1.30); GFR ESTIMATED > 60; GLUCOSE 183 MG/DL (70-105); POTASSIUM 3.8 MMOL/L (3.6-5.0); SODIUM 139 MMOL/L (135-145); TOTAL PROTEIN 6.7 GM/DL (6.4-8.2)
--- NOTE | 2018-07-21 14:21 | ED GI ---
General Chief Complaint: Rect Problems Stated Complaint: RECTAL BLEEDING Nursing Triage Note: PT STATES HE WAS HERE A COUPLE DAYS AGO FOR SAME COMPLAINT, BLEEDING FOR ABOUT A WEEK OR MORE INTO HIS COLOSTOMY BAG. Sepsis Screen: No Definite Risk Source of Information: Patient Exam Limitations: No Limitations History of Present Illness Date Seen by Provider: Jul 21, 2018 Time Seen by Provider: 14:02 Initial Comments Here with report of several days to over a week or more of blood in his colostomy bag when stool appears. Seen a few days ago for this and then also followed up with Dr. Roberts on 07/18/18 (3 days ago). He states over the last 2- 3 days it's gotten much worse. Presents today for concerns of this. Denies weakness, fever, chills or vomiting. He did hold his Eliquis and aspirin today. Timing/Duration: 1 Week Severity/Quality: Mild, Other Location: LLQ Radiation: No Radiation Activities at Onset: None Modifying Factors: Worsens With Defecating Associated Symptoms: No Fever/Chills, No Nausea/Vomiting, No Shortness of Air, No Weakness Allergies and Home Medications Allergies Coded Allergies: No Known Drug Allergies (Unverified , 01/05/17) Home Medications Acetaminophen 500 Mg Tablet, 500-1,000 MG PO Q4H PRN for PAIN, (Reported) Aspirin 81 Mg Tabec, 81 MG PO DAILY, (Reported) Atenolol 100 Mg Tablet, 100 MG PO DAILY, (Reported) Atorvastatin Calcium 80 Mg Tablet, 40 MG PO DAILY, (Reported) TAKES 1/2 (80MG) TABLET Digoxin 125 Mcg Tablet, 125 MCG PO DAILY, (Reported) Enalapril Maleate 10 Mg Tablet, 5 MG PO DAILY, (Reported) TAKES 1/2 (10MG) TABLET Famotidine 20 Mg Tablet, 20 MG PO BID, (Reported) FILLED #20 01-03-17 Finasteride 5 Mg Tablet, 5 MG PO DAILY, (Reported) Furosemide 20 Mg Tablet, 20 MG PO DAILY, (Reported) Hyoscyamine Sulfate 0.125 Mg Tab.subl, 0.125 MG SL Q6H PRN for PAIN, (Reported) #14 FILLED 01-03-17 Loratadine 10 Mg Tablet, 10 MG PO DAILY, (Reported) Metformin HCl 500 Mg Tab.er.24h, 500 MG PO DAILY, (Reported) Neomycin/Polymyxin B Sulf/Hc 10 Ml Drops.susp, 3 DROPS EACH EAR TID PRN for EAR PAIN, (Reported) Ondansetron 8 Mg Tab.rapdis, 8 MG PO Q6H PRN for NAUSEA, (Reported) #10 FILLED 01-03-17 Oxybutynin Chloride 5 Mg Tablet, 5 MG PO DAILY, (Reported) Terazosin Hcl 5 Mg Capsule, 5 MG PO BID, (Reported) Patient Home Medication List Home Medication List Reviewed: Yes Review of Systems Review of Systems Constitutional: see HPI; No chills, No fever EENTM: No Symptoms Reported Respiratory: No Symptoms Reported Cardiovascular: No Symptoms Reported Gastrointestinal: See HPI Genitourinary: No Symptoms Reported Musculoskeletal: no symptoms reported Skin: change in color, rash Psychiatric/Neurological: No Symptoms Reported Hematologic/Lymphatic: No Symptoms Reported All Other Systems Reviewed Negative Unless Noted: Yes Past Pvcflyw-Trzqan-Miqwwz Hx Patient Social History Alcohol Use: Denies Use Recreational Drug Use: No Smoking Status: Former Smoker Former Smoker, Quit: Jan 06, 1988 2nd Hand Smoke Exposure: No Recent Foreign Travel: No Contact w/Someone Who Travel: No Recent Infectious Disease Expo: No Recent Hopitalizations: No Immunizations Up To Date Tetanus Booster (TDap): Unknown Date of Pneumonia Vaccine: Nov 11, 2016 Date of Influenza Vaccine: Jul 11, 2016 Seasonal Allergies Seasonal Allergies: No Past Medical History Surgeries: Yes (colon, cataracts removed) Abdominal, Appendectomy, Gallbladder, Pacemaker Respiratory: No Cardiac: Yes (PACEMAKER, STENTS) Coronary Artery Disease, Hypertension Neurological: No Reproductive Disorders: No Genitourinary: No Gastrointestinal: Yes (COLOSTOMY) Gastroesophageal Reflux Musculoskeletal: No Endocrine: Yes HEENT: No Cancer: Yes Melanoma Psychosocial: No Integumentary: No Blood Disorders: No Family Medical History Reviewed Nursing Family Hx DVT 19 MOTHER FH: renal failure 19 FATHER Physical Exam Vital Signs Vital Signs - First Documented 07/21/18 13:20 Temp 98.1 Pulse 103 Resp 20 B/P (MAP) 120/58 (78) Pulse Ox 94 O2 Delivery Room Air Capillary Refill : Less Than 3 Seconds Height/Weight/BMI Height: 5'5.00" Weight: 175lbs. 12.0oz. 79.729891nn; 28.4 BMI Method:Stated General Appearance: WD/WN, no apparent distress HEENT: PERRL/EOMI, pharynx normal Neck: full range of motion, supple Respiratory: lungs clear, normal breath sounds Cardiovascular: regular rate, rhythm, no murmur Gastrointestinal: non tender, soft, other (colostomy at left lateral lower quadrant) Extremities: non-tender, normal inspection Back: normal inspection, no CVA tenderness, no vertebral tenderness Neurologic/Psychiatric: alert, oriented x 3 Skin: warm/dry, other (erythema noted to area of lower portion of left lower quadrant of the abdomen below the colostomy bad approximately 12 x 12 cm) Progress/Results/Core Measures Results/Orders Lab Results Laboratory Tests Test 07/21/18 13:40 Range/Units White Blood Count 7.1 4.3-11.0 10^3/uL Red Blood Count 4.13 L 4.35-5.85 10^6/uL Hemoglobin 12.7 L 13.3-17.7 G/DL Hematocrit 38 L 40-54 % Mean Corpuscular Volume 92 80-99 FL Mean Corpuscular Hemoglobin 31 25-34 PG Mean Corpuscular Hemoglobin Concent 33 32-36 G/DL Red Cell Distribution Width 12.9 10.0-14.5 % Platelet Count 157 130-400 10^3/uL Mean Platelet Volume 10.0 7.4-10.4 FL Neutrophils (%) (Auto) 63 42-75 % Lymphocytes (%) (Auto) 22 12-44 % Monocytes (%) (Auto) 8 0-12 % Eosinophils (%) (Auto) 6 0-10 % Basophils (%) (Auto) 1 0-10 % Neutrophils # (Auto) 4.4 1.8-7.8 X 10^3 Lymphocytes # (Auto) 1.6 1.0-4.0 X 10^3 Monocytes # (Auto) 0.6 0.0-1.0 X 10^3 Eosinophils # (Auto) 0.4 H 0.0-0.3 10^3/uL Basophils # (Auto) 0.0 0.0-0.1 10^3/uL Sodium Level 139 135-145 MMOL/L Potassium Level 3.8 3.6-5.0 MMOL/L Chloride Level 102 98-107 MMOL/L Carbon Dioxide Level 26 21-32 MMOL/L Anion Gap 11 5-14 MMOL/L Blood Urea Nitrogen 13 7-18 MG/DL Creatinine 0.91 0.60-1.30 MG/DL Estimat Glomerular Filtration Rate > 60 BUN/Creatinine Ratio 14 Glucose Level 183 H 70-105 MG/DL Calcium Level 9.9 8.5-10.1 MG/DL Corrected Calcium 10.0 8.5-10.1 MG/DL Total Bilirubin 0.7 0.1-1.0 MG/DL Aspartate Amino Transf (AST/SGOT) 32 5-34 U/L Alanine Aminotransferase (ALT/SGPT) 42 0-55 U/L Alkaline Phosphatase 52 40-136 U/L C-Reactive Protein High Sensitivity 0.25 0.00-0.50 MG/DL Total Protein 6.7 6.4-8.2 GM/DL Albumin 3.9 3.2-4.5 GM/DL My Orders Orders - KT MATHEW MD Saline Lock/Iv-Start (07/21/18 13:13) Cbc With Automated Diff (07/21/18 13:13) Comprehensive Metabolic Panel (07/21/18 13:13) Hs C Reactive Protein (07/21/18 13:13) Vital Signs/I&O 07/21/18 13:20 Temp 98.1 Pulse 103 Resp 20 B/P (MAP) 120/58 (78) Pulse Ox 94 O2 Delivery Room Air Blood Pressure Mean: 78 Progress Progress Note : Progress Note Seen and evaluated. IV, labs ordered. These were reviewed. I did discuss the case with Dr. Roberts at 1420. He accepts patient for admission with the intention of bowel prep tonight and colostomy tomorrow. He has consulted Dr. Ordoñez to see him as well. This was discussed with the patient who agrees with plan. Observation status. Departure Communication (Admissions) Time/Spoke to Admitting Phy: 14:20 Impression Primary Impression: GI bleed Qualified Codes: K92.2 - Gastrointestinal hemorrhage, unspecified Disposition: ADMITTED INPATIENT Condition: Stable Admissions Decision to Admit Reason: Admit from ER (General) Decision to Admit/Date: Jul 21, 2018 Time/Decision to Admit Time: 14:20 Departure-Patient Inst. Referrals: ANA CRUZ MD (PCP/Family) Primary Care Physician KT MATHEW MD Jul 21, 2018 14:20
[2018-07-21 15:20] VITALS: BP 148/67
[2018-07-21] MEDS: NS IV 1000 ML 1,000 ML IV SCH (15:55)
--- NOTE | 2018-07-21 16:01 | History & Physical-Surgical ---
History of Present Illness History of Present Illness Reason for visit/HPI 82 year old male who had colostomy for bowel obstruction done in [place] was admitted from the ED for bright red blood per colostomy. Pt states he has had the bleeding for the last 5 days and it has worsened over the last couple of days. Pt states he is still making stool, denies any F, chills, abd pain, N/V, CP, SOB. Pt was seen in clinic on 07/18 and was offered a colonoscopy at that time and pt declined. Pt is on Eliquis and ASA. Pt still tolerating food and drink. Date of Admission Jul 21, 2018 at 14:15 Date Seen by a Provider: Jul 21, 2018 Time Seen by a Provider: 15:45 I consulted on this patient on 07/21/18 15:56 Attending Physician Brayan Gonzalez DO Admitting Physician Niall Moya MD Consult Allergies and Home Medications Allergies Coded Allergies: No Known Drug Allergies (Unverified , 01/05/17) Home Medications Acetaminophen 500 Mg Tablet, 500-1,000 MG PO Q4H PRN for PAIN-MILD, (Reported) Apixaban 5 Mg Tablet, 5 MG PO BID, (Reported) Aspirin 81 Mg Tablet.dr, 81 MG PO DAILY, (Reported) Atenolol 100 Mg Tablet, 100 MG PO DAILY, (Reported) Atorvastatin Calcium 80 Mg Tablet, 40 MG PO HS, (Reported) TAKES 1/2 (80MG) TABLET Bismuth Subsalicylate 262 Mg/15 Ml Oral.susp, PO UD PRN for HEARTBURN, (Reported ) Digoxin 125 Mcg Tablet, 125 MCG PO DAILY, (Reported) Enalapril Maleate 10 Mg Tablet, 5 MG PO DAILY, (Reported) Finasteride 5 Mg Tablet, 5 MG PO DAILY, (Reported) Furosemide 20 Mg Tablet, 20 MG PO DAILY, (Reported) Gabapentin 100 Mg Capsule, 200 MG PO BID, (Reported) Loratadine 10 Mg Tablet, 10 MG PO DAILY, (Reported) Metformin HCl 500 Mg Tab.er.24h, 500 MG PO BID WITH MEALS, (Reported) Neomycin/Polymyxin B Sulf/Hc 10 Ml Drops.susp, 3 DROPS EACH EAR TID PRN for EAR PAIN, (Reported) Oxybutynin Chloride 5 Mg Tab.er.24, 5 MG PO DAILY, (Reported) Terazosin HCl 5 Mg Capsule, 5 MG PO BID, (Reported) Patient Home Medication List Home Medication List Reviewed: Yes Past Zkcflwh-Bwhbym-Doqhdc Hx Patient Social History Alcohol Use: Denies Use Recreational Drug Use: No Smoking Status: Former Smoker Former Smoker, Quit: Jan 06, 1988 2nd Hand Smoke Exposure: No Recent Foreign Travel: No Contact w/Someone Who Travel: No Recent Infectious Disease Expo: No Recent Hopitalizations: No Immunizations Up To Date Tetanus Booster (TDap): Unknown Date of Pneumonia Vaccine: Nov 11, 2016 Date of Influenza Vaccine: Jul 11, 2016 Seasonal Allergies Seasonal Allergies: No Surgeries History of Surgeries: Yes (colon, cataracts removed) Surgeries: Abdominal, Appendectomy, Gallbladder, Pacemaker Respiratory History of Respiratory Disorde: No Cardiovascular History of Cardiac Disorders: Yes (PACEMAKER, STENTS) Cardiac Disorders: Coronary Artery Disease, Hypertension Neurological History of Neurological Disord: No Reproductive System Hx Reproductive Disorders: No Genitourinary History of Genitourinary Disor: No Gastrointestinal History of Gastrointestinal Di: Yes (COLOSTOMY) Gastrointestinal Disorders: Gastroesophageal Reflux Musculoskeletal History of Musculoskeletal Dis: No Endocrine History of Endocrine Disorders: Yes HEENT History of HEENT Disorders: No Cancer History of Cancer: Yes Cancer: Melanoma Psychosocial History of Psychiatric Problem: No Integumentary History of Skin or Integumenta: No Blood Transfusions History of Blood Disorders: No Family Medical History Significant Family History: No Pertinent Family Hx Family Medial History: DVT 19 MOTHER FH: renal failure 19 FATHER Review of Systems Constitutional: no symptoms reported EENTM: no symptoms reported Respiratory: no symptoms reported Cardiovascular: no symptoms reported Gastrointestinal: No abdominal pain; other (bright red blood per colostomy) Musculoskeletal: no symptoms reported Skin: no symptoms reported Physical Exam Vital Signs Vital Signs - First Documented 07/21/18 13:20 Temp 98.1 Pulse 103 Resp 20 B/P (MAP) 120/58 (78) Pulse Ox 94 O2 Delivery Room Air Capillary Refill : Less Than 3 Seconds Height, Weight, BMI Height: 5'5.00" Weight: 175lbs. 12.0oz. 79.122121yl; 28.4 BMI Method:Stated General Appearance: No Apparent Distress, WD/WN Eyes: Bilateral Eye PERRL Neck: Full Range of Motion, Normal Inspection, Supple Respiratory: Normal Breath Sounds, No Accessory Muscle Use, No Respiratory Distress Cardiovascular: Regular Rate, Rhythm Gastrointestinal: Non Tender, Soft Rectal: Deferred Back: Normal Inspection, No CVA Tenderness Extremity: Normal Range of Motion Neurologic/Psychiatric: Alert, Oriented x3, Normal Mood/Affect Skin: Normal Color, Warm/Dry Data Review Labs Laboratory Tests 07/21/18 13:40: White Blood Count 7.1, Red Blood Count 4.13L, Hemoglobin 12.7L, Hematocrit 38L, Mean Corpuscular Volume 92, Mean Corpuscular Hemoglobin 31, Mean Corpuscular Hemoglobin Concent 33, Red Cell Distribution Width 12.9, Platelet Count 157, Mean Platelet Volume 10.0, Neutrophils (%) (Auto) 63, Lymphocytes (%) (Auto) 22 , Monocytes (%) (Auto) 8, Eosinophils (%) (Auto) 6, Basophils (%) (Auto) 1, Neutrophils # (Auto) 4.4, Lymphocytes # (Auto) 1.6, Monocytes # (Auto) 0.6, Eosinophils # (Auto) 0.4H, Basophils # (Auto) 0.0, Sodium Level 139, Potassium Level 3.8, Chloride Level 102, Carbon Dioxide Level 26, Anion Gap 11, Blood Urea Nitrogen 13, Creatinine 0.91, Estimat Glomerular Filtration Rate > 60, BUN/ Creatinine Ratio 14, Glucose Level 183H, Calcium Level 9.9, Corrected Calcium 10.0, Total Bilirubin 0.7, Aspartate Amino Transf (AST/SGOT) 32, Alanine Aminotransferase (ALT/SGPT) 42, Alkaline Phosphatase 52, C-Reactive Protein High Sensitivity 0.25, Total Protein 6.7, Albumin 3.9 07/21/18 15:31: Glucometer 139H Assessment/Plan Assessment/Plan Admission Diagonsis Bright red blood per colostomy, lower GI bleed fpc anticoagulation status post Raul procedure Admission Status: Observation Assessment/Plan Bright red blood per colostomy, lower GI bleed termination clerk anticoagulation status post Raul procedure Hold eliquis and ASA. Golytely and clear liquids today, NPO after midnight, colonoscopy tomorrow Consult Dr. Ordoñez for medical management Physician Assessment Physician Assessment Scribed by Erasmo Rivers MS3 for JUAN ALBERTO Navarro MEDICAL STUDENT Jul 21, 2018 16:00 BRAYAN GONZALEZ DO Jul 21, 2018 16:41
[2018-07-21] MEDS ORDERED: ASPI-983 PO (16:08)
[2018-07-21] MEDS ORDERED: APIX5TAB PO (16:22)
[2018-07-21] MEDS ORDERED: FINA5TAB6 PO (16:22)
[2018-07-21] MEDS ORDERED: ENAL10TA PO (16:30)
[2018-07-21] MEDS ORDERED: OXYB5TAB PO (16:30)
[2018-07-21] MEDS ORDERED: GABA-486 PO (16:30)
[2018-07-21] MEDS ORDERED: TERA5CAP3 PO (16:30)
[2018-07-21] MEDS ORDERED: ATEN100T PO (16:30)
[2018-07-21] MEDS ORDERED: BISM262O27 PO (16:30)
[2018-07-21] MEDS ORDERED: GOLYTELY POWDER 4000 ML BTL PO NR (16:54)
[2018-07-21] MEDS ORDERED: FLU QUADRIvalent (5+ YOA) 2018-2019 (AFLURIA) 0.5 ML IM ONE (17:00)
[2018-07-21 20:10] VITALS: BP 163/67
[2018-07-21] MEDS: inSUlin ASPART (NovoLOG) 1 UNIT/0.01 ML (CHARGE PER UNIT) SC SCH (20:44)
[2018-07-22 00:05] VITALS: BP 154/67
[2018-07-22 04:06] VITALS: BP 150/71
[2018-07-22 05:48] LABS: BASOPHILS % (AUTO) 1 % (0-10); EOSINOPHILS # (AUTO) 0.4 10^3/uL (0.0-0.3); EOSINOPHILS % (AUTO) 7 % (0-10); HEMATOCRIT 36 % (40-54); HEMOGLOBIN 11.7 G/DL (13.3-17.7); LYMPHOCYTES # (AUTO) 1.3 X 10^3 (1.0-4.0); LYMPHOCYTES % (AUTO) 22 % (12-44); MEAN CORPUSCULAR HEMOGLOBIN 31 PG (25-34); MEAN CORPUSCULAR HGB CONC 33 G/DL (32-36); MEAN CORPUSCULAR VOLUME 93 FL (80-99); MEAN PLATELET VOLUME 10.8 FL (7.4-10.4); MONOCYTES # (AUTO) 0.5 X 10^3 (0.0-1.0); MONOCYTES % (AUTO) 8 % (0-12); NEUTROPHILS # (AUTO) 3.6 X 10^3 (1.8-7.8); NEUTROPHILS % (AUTO) 62 % (42-75); PLATELET COUNT 151 10^3/uL (130-400); RED BLOOD COUNT 3.83 10^6/uL (4.35-5.85); WHITE BLOOD COUNT 5.8 10^3/uL (4.3-11.0)
[2018-07-22 06:13] LABS: ALANINE AMINOTRANSFERASE 37 U/L (0-55); ALBUMIN 3.5 GM/DL (3.2-4.5); ALKALINE PHOSPHATASE 41 U/L (40-136); BILIRUBIN,TOTAL 0.8 MG/DL (0.1-1.0); BUN/CREATININE RATIO 16; CALCIUM 9.5 MG/DL (8.5-10.1); CARBON DIOXIDE 28 MMOL/L (21-32); CHLORIDE 105 MMOL/L (98-107); GFR ESTIMATED > 60; GLUCOSE 142 MG/DL (70-105); POTASSIUM 3.9 MMOL/L (3.6-5.0); SODIUM 142 MMOL/L (135-145); TOTAL PROTEIN 6.4 GM/DL (6.4-8.2)
[2018-07-22] MEDS: inSUlin ASPART (NovoLOG) 1 UNIT/0.01 ML (CHARGE PER UNIT) SC SCH ×3 (06:18→14:10)
[2018-07-22 08:00] VITALS: BP 160/93
--- NOTE | 2018-07-22 09:27 | Progress Note ---
Subjective Date Seen by a Provider: Jul 22, 2018 Time Seen by a Provider: 07:30 Subjective/Events-last exam Pt states he took the Golytely yesterday and has been having clear stools in his ostomy bag. Pt states he has been NPO since midnight Pt denies fever, CP, SOB, N/V. Pt scheduled for colonoscopy today. Objective Exam Vital Signs Date Time Temp Pulse Resp B/P (MAP) Pulse Ox O2 Delivery O2 Flow Rate FiO2 07/22/18 04:06 98.4 68 16 150/71 (97) 94 Room Air 07/22/18 00:05 98.6 70 17 154/67 (96) 94 Room Air 07/21/18 20:10 97.3 92 18 163/67 (99) 94 Room Air 07/21/18 19:22 Room Air 07/21/18 15:20 96.5 61 16 148/67 (94) 94 Room Air 07/21/18 15:20 98.2 62 18 132/55 (80) 96 Room Air 07/21/18 15:10 96 Room Air 07/21/18 13:20 98.1 103 20 120/58 (78) 94 Room Air I & O 07/22/18 07:00 Intake Total 4500 ml Balance 4500 ml Capillary Refill : Less Than 3 Seconds General Appearance: No Apparent Distress, WD/WN Neck: Full Range of Motion, Normal Inspection, Supple Respiratory: Normal Breath Sounds, No Accessory Muscle Use, No Respiratory Distress Cardiovascular: Regular Rate, Rhythm Gastrointestinal: non tender, soft, other (colostomy at left lateral lower quadrant) Extremity: Normal Range of Motion Neurologic/Psychiatric: Alert, Oriented x3, Normal Mood/Affect Skin: Normal Color, Warm/Dry Results Lab Laboratory Tests 07/21/18 13:40: White Blood Count 7.1, Red Blood Count 4.13L, Hemoglobin 12.7L, Hematocrit 38L, Mean Corpuscular Volume 92, Mean Corpuscular Hemoglobin 31, Mean Corpuscular Hemoglobin Concent 33, Red Cell Distribution Width 12.9, Platelet Count 157, Mean Platelet Volume 10.0, Neutrophils (%) (Auto) 63, Lymphocytes (%) (Auto) 22 , Monocytes (%) (Auto) 8, Eosinophils (%) (Auto) 6, Basophils (%) (Auto) 1, Neutrophils # (Auto) 4.4, Lymphocytes # (Auto) 1.6, Monocytes # (Auto) 0.6, Eosinophils # (Auto) 0.4H, Basophils # (Auto) 0.0, Sodium Level 139, Potassium Level 3.8, Chloride Level 102, Carbon Dioxide Level 26, Anion Gap 11, Blood Urea Nitrogen 13, Creatinine 0.91, Estimat Glomerular Filtration Rate > 60, BUN/ Creatinine Ratio 14, Glucose Level 183H, Calcium Level 9.9, Corrected Calcium 10.0, Total Bilirubin 0.7, Aspartate Amino Transf (AST/SGOT) 32, Alanine Aminotransferase (ALT/SGPT) 42, Alkaline Phosphatase 52, C-Reactive Protein High Sensitivity 0.25, Total Protein 6.7, Albumin 3.9 07/21/18 15:31: Glucometer 139H 07/21/18 19:50: Glucometer 137H 07/22/18 05:13: White Blood Count 5.8, Red Blood Count 3.83L, Hemoglobin 11.7L, Hematocrit 36L, Mean Corpuscular Volume 93, Mean Corpuscular Hemoglobin 31, Mean Corpuscular Hemoglobin Concent 33, Red Cell Distribution Width 13.0, Platelet Count 151, Mean Platelet Volume 10.8H, Neutrophils (%) (Auto) 62, Lymphocytes (%) (Auto) 22 , Monocytes (%) (Auto) 8, Eosinophils (%) (Auto) 7, Basophils (%) (Auto) 1, Neutrophils # (Auto) 3.6, Lymphocytes # (Auto) 1.3, Monocytes # (Auto) 0.5, Eosinophils # (Auto) 0.4H, Basophils # (Auto) 0.0, Sodium Level 142, Potassium Level 3.9, Chloride Level 105, Carbon Dioxide Level 28, Anion Gap 9, Blood Urea Nitrogen 13, Creatinine 0.80, Estimat Glomerular Filtration Rate > 60, BUN/ Creatinine Ratio 16, Glucose Level 142H, Calcium Level 9.5, Corrected Calcium 9.9, Total Bilirubin 0.8, Aspartate Amino Transf (AST/SGOT) 30, Alanine Aminotransferase (ALT/SGPT) 37, Alkaline Phosphatase 41, Total Protein 6.4, Albumin 3.5 07/22/18 08:55: Glucometer 144H Assessment/Plan Assessment/Plan Assessment/Plan Bright red blood per colostomy, lower GI bleed senior living anticoagulation status post Raul procedure Pt scheduled for colonoscopy today Rectal stump with enema for scope. Hgb stable Clinical Quality Measures DVT/VTE Risk/Contraindication: Risk Factor Score Per Nursin RFS Level Per Nursing on Admit: 2=Moderate Physician Assessment Physician Assessment Scribed by Erasmo Rivers MS3 for JUAN ALBERTO Garvin MEDICAL STUDENT Jul 22, 2018 09:26 NICKY GONZALEZ DO Jul 22, 2018 14:25
[2018-07-22] MEDS ORDERED: ENALAPRIL 5 MG (VASOTEC) TAB PO SCH (09:47)
[2018-07-22] MEDS ORDERED: DIGOXIN 0.125 MG (LANOXIN) TAB PO SCH (09:47)
[2018-07-22] MEDS ORDERED: GABAPENTIN 100 MG (NEURONTIN) CAP PO SCH (09:48)
[2018-07-22] MEDS ORDERED: FINASTERIDE (PROSCAR) 5 MG TAB PO SCH (09:48)
[2018-07-22] MEDS ORDERED: FUROSEMIDE 20 MG (LASIX) TAB PO SCH (09:48)
[2018-07-22] MEDS ORDERED: LORATADINE (CLARITIN) 10 MG TAB PO SCH (09:49)
[2018-07-22] MEDS ORDERED: ATENOLOL 50 MG (TENORMIN) TAB PO SCH (09:49)
[2018-07-22] MEDS ORDERED: TERAZOSIN 5 MG (HYTRIN) CAPSULE PO SCH (09:50)
[2018-07-22] MEDS ORDERED: OXYBUTYNIN (DITROPAN) 5 MG TAB PO SCH (09:52)
--- NOTE | 2018-07-22 10:22 | Consultation-Hospitalist ---
HPI History of Present Illness: HPI/Chief Complaint Pt is a 82yoCM who presented to the ER due to bleeding in his colostomy. He states that this started 2 weeks ago and he thought it would get better on it's own but didn't and continued to worsen. He was admitted to surgery for scope and I am consulted for medical management. He denies any complaints at this time and reports his bleeding has slowed today but he has not passed any stool yet either. He has a medical history of HTN, CAD s/p stenting, a-fib s/p pacemaker, and NIDDMII. Source: patient Date Seen 07/22/18 Attending Physician Brayan Roberts DO PCP Niall Moya MD Referring Physician Date of Admission Jul 21, 2018 at 2:15 pm Home Medications & Allergies Home Medications Reviewed patient Home Medication Reconciliation performed by pharmacy medication reconciliations transportation refrigeration technician and/or nursing. Patients Allergies have been reviewed. Allergies Allergies Coded Allergies No Known Drug Allergies (Unverified01/05/17) Past Mlgxnqw-Kmqmqx-Ladpkp Hx Past Med/Social Hx: Reviewed Nursing Past Med/Soc Hx Patient Social History Alcohol Use: Denies Use Recreational Drug Use: No Smoking Status: Former Smoker Former Smoker, Quit: Jan 06, 1988 2nd Hand Smoke Exposure: No Physical Abuse Screen: No Sexual Abuse: No Recent Foreign Travel: No Contact w/other who traveled: No Recent Hopitalizations: No Recent Infectious Disease Expo: No Immunizations Up To Date Tetanus Booster (TDap): Unknown Date of Pneumonia Vaccine: Nov 11, 2016 Date of Influenza Vaccine: Jul 20, 2018 Seasonal Allergies Seasonal Allergies: No Past Medical History Surgeries: Abdominal, Appendectomy, Gallbladder, Pacemaker colostomy Cardiac: Coronary Artery Disease, Hypertension Reproductive: No Gastrointestinal: Gastroesophageal Reflux, Obstructive Bowel Cancer: Melanoma History of Blood Disorders: No Family History Reviewed Nursing Family Hx DVT 19 MOTHER FH: renal failure 19 FATHER No Pertinent Family Hx Review of Systems Constitutional: No chills, No fever EENTM: No blurred vision, No double vision, No nose congestion, No throat pain Respiratory: No cough, No dyspnea on exertion, No short of breath Cardiovascular: No chest pain, No edema, No palpitations Gastrointestinal: see HPI; No abdominal pain, No constipation, No diarrhea, No nausea, No vomiting Genitourinary: No dysuria, No frequency Musculoskeletal: No joint pain, No muscle pain Skin: No lesions, No rash Psychiatric/Neurological: Denies Headache, Denies Numbness, Denies Tingling Physical Exam Physical Exam Vital Signs Vital Signs - First Documented 07/21/18 13:20 Temp 98.1 Pulse 103 Resp 20 B/P (MAP) 120/58 (78) Pulse Ox 94 O2 Delivery Room Air Capillary Refill : Less Than 3 Seconds Height, Weight, BMI Height: 5'5.00" Weight: 175lbs. 12.0oz. 79.283991ig; 29.3 BMI Method:Stated General Appearance: No Apparent Distress, WD/WN HEENT: PERRL/EOMI, Moist Mucous Membranes Neck: Non Tender, Supple Respiratory: Lungs Clear, No Respiratory Distress Cardiovascular: Regular Rate, Rhythm, No Murmur Gastrointestinal: Normal Bowel Sounds, Non Tender, Soft Extremity: Normal Capillary Refill, No Calf Tenderness Neurologic/Psychiatric: Alert, Oriented x3, Normal Mood/Affect Skin: Normal Color, Warm/Dry Results Results/Procedures Labs Laboratory Tests 07/21/18 13:40 07/22/18 05:13 Patient resulted labs reviewed. Assessment/Plan Assessment and Plan Assess & Plan/Chief Complaint Bleeding from ostomy Diagnosis/Problems Diagnosis/Problems (1) GI bleed Status: Acute Assessment & Plan: Hold eliquis and ASA Plan for scope today per primary Qualifiers: GI bleed type/associated pathology: unspecified gastrointestinal hemorrhage type Qualified Codes: K92.2 - Gastrointestinal hemorrhage, unspecified (2) Atrial fibrillation Status: Chronic Assessment & Plan: Pacemaker in place Hold anticoagulation resume digoxin and atenolol He has refused his other meds Qualifiers: Atrial fibrillation type: chronic Qualified Codes: I48.2 - Chronic atrial fibrillation (3) CAD (coronary artery disease) Status: Chronic Assessment & Plan: S/p stents Follows with outside cardiology Qualifiers: Coronary Disease-Associated Artery/Lesion type: [place] artery [place] vs. transplanted heart: [place] heart Associated angina: without angina Qualified Codes: I25.10 - Atherosclerotic heart disease of [place] coronary artery without angina pectoris (4) Non-insulin dependent type 2 diabetes mellitus Assessment & Plan: Hold Metformin SSI (5) Essential (primary) hypertension Assessment & Plan: Well controlled for age trend Clinical Quality Measures DVT/VTE Risk/Contraindication: Risk Factor Score Per Nursin RFS Level Per Nursing on Admit: 2=Moderate MALCOM COREAS MD Jul 22, 2018 10:22 am
[2018-07-22 12:00] VITALS: BP 170/72
[2018-07-22] MEDS ORDERED: FLEET ENEMA ADULT 1 EA BTL ONE (13:57)
[2018-07-22] MEDS ORDERED: LACTATED RINGERS 1,000 ML IV ONE (14:04)
[2018-07-22] MEDS ORDERED: MIDAZOLAM 2 MG/2 ML (VERSED) VIAL ONE (14:21)
[2018-07-22] MEDS ORDERED: PROPOFOL INJECTION 50 ML IV ONE (14:21)
--- NOTE | 2018-07-22 15:12 | Progress Note-Post Operative ---
Post-Operative Progess Note Surgeon (s)/Dry Cleaning Counter Clerk (s) Surgeon NICKY GONZALEZ DO Dry Cleaning Counter Clerk: na Pre-Operative Diagnosis blood per colostomy Post-Operative Diagnosis transverse colon polyp diverticulosis Procedure & Operative Findings Date of Procedure 07/22/18 Procedure Performed/Findings colonoscopy with hot bx polypectomy transverse colon Anesthesia Type per agricultural systems specialist Estimated Blood Loss Estimated blood loss (mL): none Specimens/Packing Specimens Removed transverse colon polyp NICKY GONZALEZ DO Jul 22, 2018 15:12
[2018-07-22] MEDS ORDERED: LACTATED RINGERS 1,000 ML IV SCH (15:30)
[2018-07-22 15:47] VITALS: BP 178/57
[2018-07-22] MEDS: NS IV 1000 ML 1,000 ML IV SCH (16:06)
--- NOTE | 2018-07-22 16:49 | Discharge Inst-Simple/Standard ---
Discharge Inst-Standard Patient Instructions/Follow Up Plan of Care/Instructions/FU: 2 weeks [place]. Meet with Ostomy nurse on Wednesday. Activity as Tolerated: Yes Discharge Diet: Regular Diet Other Inst to Patient Symptoms to Report: Appetite Changes, Extremity Discoloration, Numbness/Tingling, Swelling Increased , Bleeding Excessive, Eyesight Changes, Pain Increased, Urine Color Change, Constipation(Persistent), Fever over 101 degree F, Pain/Pressure in chest, Urinating Difficulty, Cough Up/Vomit Blood, Heart Beat Irreg/Pounding, Pain/ Pressure in jaw, Vaginal Bleeding Increase, Cramps in feet or legs, Lightheadedness, Pain/Pressure in shoulder, Diarrhea(Persistent), Memory Changes Suddenly, Questions/Concerns, Weight gain consecutive days, Dizziness/ Fainting, Nausea/Vomiting, Shortness of Breath, Weight gain over 2 pounds. If any further bleeding be seen at that time. If questions or concerns contact your physician Or seek help at emergency department. NICKY GONZALEZ DO Jul 22, 2018 16:49
[2018-07-22] MEDS ORDERED: ATORVASTATIN 40 MG (LIPITOR) TABLET PO SCH (21:00)
--- NOTE | 2018-07-22 21:58 | OPERATIVE REPORT ---
DATE OF SERVICE: 07/22/2018 PREOPERATIVE DIAGNOSIS: Blood per colostomy. POSTOPERATIVE DIAGNOSIS: Transverse colon polyp, diverticulosis. PROCEDURE: Colonoscopy with hot biopsy polypectomy, transverse colon polyp. SURGEON: Nicky Roberts DO ANESTHESIA: Per FARM PRODUCTS SHIPPER. ESTIMATED BLOOD LOSS: None. COMPLICATIONS: None. INDICATIONS: The patient is an 82-year-old male with status post Raul. He has been having some bleeding per colostomy. He understood risks and benefits of procedure and wished to proceed with procedure. Consent was signed on the chart. DESCRIPTION OF PROCEDURE: The patient was taken to the endoscopy suite, placed in left lateral recumbent position. Timeout was performed. Scope was inserted into the colostomy and advanced all the way to the cecum without any difficulty. Prep was adequate. Scope was then slowly retracted back. There were no polyps, masses or ulcerations of the cecum or ascending colon. Within the transverse colon, a small polyp was present, which hot biopsy polypectomy was performed. Scope was continuously retracted back into the ascending colon, which then turned into the colostomy. In the ascending colon, there is a small amount of diverticulosis present. No source of bleeding present. Digital rectal exam was performed. There was a large mucus plug into the rectum, which was able to be broken up and removed. There were no polyps, masses or ulcerations present. Scope was inserted in the rectum and advanced through the rectum and there was a small portion of sigmoid colon still present with a small amount of diverticulosis present. No polyps, mass or ulcerations within that small portion of sigmoid colon and rectum. Scope was retroflexed in the rectum, noting no other pathology. Scope was returned to its normal position, slowly withdrawn until completely removed. The patient tolerated the procedure well without any complications, taken to the recovery room in stable condition. RECOMMENDATIONS: The patient will follow up in the office in two weeks to discuss pathology results. There is no source of bleeding identified. He does have some diverticulosis which could be the cause. If he has any change in condition, he should be reevaluated at that time. If he has any further bleeding, he should be reevaluated at that time. Job ID: [id number] DocumentID: [id number] Dictated Date: 07/22/2018 16:53:09 Digital Analyst Date: 07/22/2018 21:57:25 Dictated By: NICKY ROBERTS DO
== END 2018-07-22 18:00 | disposition home or self-care (01) ==
LOC: EDUNIT# 13:09 → ER 13:10 → UNDOADMOB 14:15 → SDC 14:15 → 4TH 14:15 → SDC 07-22 18:00 → UNDODISOB 07-22 18:00
PROVIDERS: ATTEND Surgery
DX: K92.2 Gastrointestinal hemorrhage, unspecified (principal); D12.3 Benign neoplasm of transverse colon; K57.30 Diverticulosis of large intestine without perforation or abscess without bleeding; I25.10 Atherosclerotic heart disease of native coronary artery without angina pectoris; I48.91 Unspecified atrial fibrillation; I10 Essential (primary) hypertension; E11.9 Type 2 diabetes mellitus without complications; K21.9 Gastro-esophageal reflux disease without esophagitis; Z93.3 Colostomy status; Z79.01 Long term (current) use of anticoagulants; Z79.82 Long term (current) use of aspirin; Z79.84 Long term (current) use of oral hypoglycemic drugs; Z79.899 Other long term (current) drug therapy; Z87.891 Personal history of nicotine dependence; Z95.0 Presence of cardiac pacemaker; Z95.5 Presence of coronary angioplasty implant and graft
CPT/HCPCS: 36415; 80053; 82962; 85025; 86141; 88305

== ENCOUNTER 2018-12-22 10:15 | Outpatient (CLI) | payer MEDICARE, BC ==
[~2018-12-22] VITALS: Ht 165.1 cm; Wt 79.7 kg
[~2018-12-22 10:15] MED LIST changes: +APIX5TAB PO; +ASPI-983 PO; +ATEN100T PO; +BISM262O27 PO; +GABA-486 PO; +OXYB5TAB PO; +TERA5CAP3 PO
== END 2018-12-22 10:40 | disposition home or self-care (01) ==
LOC: PREOP 10:15
PROVIDERS: ATTEND Internal Medicine Interventional Cardiology
DX: Z01.818 Encounter for other preprocedural examination (principal)

== ENCOUNTER 2019-01-16 06:56 | Day surgery (SDC) | payer MEDICARE, BC ==
[2019-01-16] VITALS (20 sets, daily range): BP systolic 93–145; BP diastolic 49–102
[~2019-01-16] VITALS: Ht 165.1 cm; Wt 79.4 kg
[2019-01-16] MEDS ORDERED: HEParin 1000 UNIT/ML (10ML VIAL) FOR BOLUS ONE (07:07)
[2019-01-16] MEDS ORDERED: NS IV 1000 ML 3,000 ML ONE (07:07)
[2019-01-16] MEDS ORDERED: LIDOCAINE 1% INJ 20 ML 20 ML VIAL ONE (07:07)
[2019-01-16] MEDS ORDERED: ISOPROTERENOL 0.2 MG/100 ML D5W IV ONE (07:15)
[2019-01-16] MEDS ORDERED: NS IV 1000 ML 1,000 ML IV SCH (07:15)
[2019-01-16 07:30] LABS: HEMOGLOBIN 13.2 G/DL (13.3-17.7); MEAN PLATELET VOLUME 10.5 FL (7.4-10.4); RED CELL DISTRIBUTION WIDTH 13.4 % (10.0-14.5); WHITE BLOOD COUNT 6.3 10^3/uL (4.3-11.0)
[2019-01-16] MEDS ORDERED: FURO20TA4 PO (07:31)
[2019-01-16] MEDS ORDERED: ONDANSETRON 4 MG/2 ML (SDV) Z0FRAN ONE (07:36)
[2019-01-16] MEDS ORDERED: proPOfol 200 MG/20 ML (DIPRIVAN) VIAL IV ONE (07:36)
[2019-01-16] MEDS ORDERED: MIDAZOLAM 2 MG/2 ML (VERSED) VIAL ONE (07:36)
[2019-01-16] MEDS ORDERED: SEVOFLURANE (ULTANE) 15 ML INHAL SOLN ONE ×2 (07:37→10:44)
[2019-01-16 07:44] LABS: PROTHROMBIN TIME PATIENT 13.7 SEC (12.2-14.7)
[2019-01-16 07:53] LABS: ALANINE AMINOTRANSFERASE 34 U/L (0-55); ALBUMIN 4.1 GM/DL (3.2-4.5); ALKALINE PHOSPHATASE 42 U/L (40-136); BILIRUBIN,TOTAL 0.9 MG/DL (0.1-1.0); BUN/CREATININE RATIO 13; CARBON DIOXIDE 27 MMOL/L (21-32); CHLORIDE 104 MMOL/L (98-107); CREATININE SERUM 0.85 MG/DL (0.60-1.30); GFR ESTIMATED > 60; GLUCOSE 141 MG/DL (70-105); POTASSIUM 3.6 MMOL/L (3.6-5.0); SODIUM 142 MMOL/L (135-145); TOTAL PROTEIN 6.5 GM/DL (6.4-8.2)
[2019-01-16] MEDS ORDERED: PHENYLEPHRINE 100 MCG/ML 10 ML (ANESTHESIA) SYR ONE (09:07)
--- NOTE | 2019-01-16 10:55 | Cardiac Procedure Note-CS/ASA ---
Pre-Procedure Note Pre-Op Procedure Note H&P Reviewed The H&P was reviewed, patient examined and no changes noted. Date H&P Reviewed: Jan 16, 2019 Time H&P Reviewed: 08:00 Conscious Sedation Pre-Proced Time 08:00 ASA Score 3 For ASA 3 and 4: Consider anesthesia and medical clearance. Also, for patients with a history of failed moderate sedation consider anesthesia. Airway Lungs Heart ASA score ASA 1: a normal healthy patient ASA 2: a patient with a mild systemic disease (mid diabetes, controlled hypertension, obesity ASA 3: a patient with a severe systemic disease that limits activity (angina , COPD, prior Myocardial infarction) ASA 4: a patient with an incapacitating disease that is a constant threat to life (CHF, renal failure) ASA 5: a moribund patient not expected to survive 24 hrs. (ruptured aneurysm) ASA 6: a declared brain- patient whose organs are being harvested. For emergent operations, add the letter E after the classification Mallampati Classification Grade 1 Sedation Plan Analgesia, Amnesia, Plan communicated to team members, Discussed options with patient/fam, Discussed risks with patient/fam The patient is an appropriate candidate to undergo the planned procedure, sedation, and anesthesia. The patient immediately re-assessed prior to indication. John ROLON MD Jan 16, 2019 10:55
--- NOTE | 2019-01-16 10:56 | Electrophysiology Procedure ---
EP Procedure DATE OF SERVICE:01/16/19 Typical Atrial flutter ablation REFERRING PHYSICIAN: Dr. Roopa Gillespie CARDIAC WEBSPHERE PORTAL DEVELOPER: Dr. Daisy Jones INDICATION: Typical atrial flutter. PREOPERATIVE DIAGNOSIS: Typical atrial flutter. POSTOPERATIVE DIAGNOSES: Successful typical atrial flutter ablation. HISTORY: This is a 83-year-old gentleman who is a patient of Dr. Gillespie. He has a previous dual-chamber permanent pacemaker area and he has history of paroxysmal atrial fibrillation. He presented with symptomatic typical atrial flutter. The patient is planned for comprehensive EP study and ablation. PROCEDURE PERFORMED: 1. Comprehensive EP study with induction. 2. Fluoroscopy. 3. CS pacing. 4. Drug infusion. 5. Ablation of typical atrial flutter. 6. Comprehensive 3D mapping with the carto system. COMPLICATION: None. ESTIMATED BLOOD LOSS: 10 mL. CONTRAST USED: None. FLUOROSCOPY TIME: 15.9 minutes. FLUOROSCOPY DOSE: 401 mgy. SPECIMENS: None. ANESTHESIA: Done by our anesthesia colleagues. ANTICOAGULATION: Eliquis was was held 2 days ago. PROCEDURE IN DETAIL: After informed consent was taken, the patient was brought to the EP lab. Anesthesia was provided by our anesthesia colleagues. The patient was draped and prepped in the usual sterile fashion. The patient presented to the EP lab in atrial flutter. Access was gained in the right femoral vein with a 6-[place]izen [place] and an 8-[place]izen [place] sheath. Left access in left femoral vein was gained with 5-Citizen [place] and 6-Citizen [place] sheath respectively. High right atrial catheter was an ablation catheter, right ventricular catheter was placed, his catheter and the CS catheter were also placed. A comprehensive EP study was done including a CS pacing. Patient was in right-sided atrial flutter. The arrhythmia was entertained from the CTI and post-entrainment interval was within 5 ms of the tachycardia cycle length therefore CTI dependent right atrial flutter was confirmed. A 3D electroanatomic mapping was donewith the carto system. Ablation was performed in the cavotricuspid isthmus.Atrial flutter conversion was noted during ablation. CS pacing and pacing from the ablation catheter at different positions on the lateral side of the ablation line were used to verify bidirectional block. We then waited for 30 minutes and rechecked and confirmed bidirectional block.Isuprel was given post-procedure, however, we could not induce atrial flutter.The patienttolerated the procedure well and did not have any complication. The patientleft the lab in sinus rhythm. Total ablation time was 11 minutes and 6 seconds. MEASUREMENTS/EP STUDY: AA interval 496 ms, AH interval 172 ms, HV interval 60 ms, IN interval 171 ms, QRS duration 67 ms, QT interval to 384 ms, R-R interval 509 ms, AV Wenckebach when pacing at cycle length 440 ms, Atrial ERP was 500/200 ms, No baseline VA conduction. PLAN: The patient will be observed overnight and will be discharged home tomorrow with precise followup instructions. Daisy Jones MD, [facility], [facility] Cardiac Electrophysiology John JONES MD Jan 16, 2019 10:56
[2019-01-16] MEDS ORDERED: PATIENT MAY USE OWN MEDS, ALL PO SCH (11:00)
--- NOTE | 2019-01-16 11:02 | Discharge Inst-Post CATH ---
Discharge Inst-CATH/EP Post Cardiac Cath/EP D/C Inst Follow Up/Plan Dr Jones in three to four weeks. CARDIAC CATH DISCHARGE INSTRUCTIONS *Hold Metformin for 48 hours post heart cath. ACTIVITY * Go Home directly and rest. * Limit activity of the leg (or wrist if it was used) for 7 days including aerobics, swimming, jogging, bicycling, etc. * Restrict stair-climbing for 7 days if possible, if not, climb up with your non -cath leg, then bring together on the same step. * Avoid lifting, pushing, pulling or excessive movement of the affected extremity for 7 days. * Customary sexual activity may be resumed after 2 days-use caution not to use a position that strains or causes pain to the affected extremity. * No driving for 24 hours. * NO SMOKING. * Avoid straining for bowel movements for 7 days. * Gentle walking on level ground is allowed. * Returning to work will depend on the type of procedure and the results. Your doctor will discuss this with you. CALL YOUR DOCTOR FOR ANY OF THE FOLLOWING: *If bleeding from the puncture site occurs- Apply gentle pressure to site with clean cloth and call your doctor or EMS. * If a knot or lump forms under the skin, increases in size, or causes pain. * If bruising appears to be worsening or moving further down your leg instead of disappearing. * Temperature above 101 F. CARE OF YOUR GROIN INCISION; * Bruising or purple discoloration of the skin near the puncture site is common. * You may shower only, no bathtub bathing for 5 days. Be careful to avoid slipping as your leg may feel stiff. * If a closure device was used on your femoral artery, please see the attached guide regarding care of the device and your leg. * Leave the dressing on, until removed by office staff. CARE OF YOUR WRIST INCISION; * Bruising or purple discoloration of the skin near the puncture site is common. * You may shower. * DO NOT submerge wrist. * Leave dressing on, until removed by office staff.. John JONES MD Jan 16, 2019 11:02
--- NOTE | 2019-01-16 12:11 | Anesthesia-General Post-Op ---
General Patient Condition Mental Status/LOC: Same as Preop Cardiovascular: Satisfactory Nausea/Vomiting: Absent Respiratory: Satisfactory Pain: Controlled Complications: Absent Post Op Complications Complications None Follow Up Care/Instructions Patient Instructions None needed. Anesthesia/Patient Condition Patient Condition Patient is doing well, no complaints, stable vital signs, no apparent adverse anesthesia problems. No complications reported per nursing. [place] [facility] [place] CORTEZ Lau CRNA Jan 16, 2019 12:11
[2019-01-16] MEDS: NS IV 1000 ML 1,000 ML IV SCH ×2 (13:37→22:16)
[2019-01-16] MEDS ORDERED: ACETAMINOPHEN PO PRN (17:45)
[2019-01-16] MEDS ORDERED: ACETAMINOPHEN 500 MG TAB (TYLENOL) PO PRN (18:15)
[2019-01-16] MEDS: APIXABAN 5 MG (ELIQUIS) TABLET PO SCH (20:09)
[2019-01-16] MEDS: TERAZOSIN 5 MG (HYTRIN) CAPSULE PO SCH (20:12)
[2019-01-16] MEDS: GABAPENTIN 100 MG (NEURONTIN) CAP PO SCH (20:13)
[2019-01-16] MEDS ORDERED: NON-FORMULARY MEDICATION 1 EA EA (Terazosin HCl 5 MG) PO SCH (21:00)
[2019-01-16] MEDS ORDERED: ATORVASTATIN 80 MG (LIPITOR) TABLET PO SCH (21:00)
[2019-01-17 03:52] LABS: HEMOGLOBIN 10.7 G/DL (13.3-17.7); MEAN PLATELET VOLUME 10.8 FL (7.4-10.4); RED CELL DISTRIBUTION WIDTH 13.5 % (10.0-14.5); WHITE BLOOD COUNT 6.2 10^3/uL (4.3-11.0)
[2019-01-17 04:00] VITALS: BP 126/56
[2019-01-17 04:07] LABS: BUN/CREATININE RATIO 15; CALCIUM 8.5 MG/DL (8.5-10.1); CARBON DIOXIDE 23 MMOL/L (21-32); CHLORIDE 109 MMOL/L (98-107); CREATININE SERUM 0.78 MG/DL (0.60-1.30); GFR ESTIMATED > 60; GLUCOSE 117 MG/DL (70-105); POTASSIUM 3.8 MMOL/L (3.6-5.0); SODIUM 141 MMOL/L (135-145)
[2019-01-17] MEDS: NS IV 1000 ML 1,000 ML IV SCH (05:27)
[2019-01-17] MEDS: GABAPENTIN 100 MG (NEURONTIN) CAP PO SCH (08:03)
[2019-01-17] MEDS: TERAZOSIN 5 MG (HYTRIN) CAPSULE PO SCH (08:03)
[2019-01-17] MEDS: APIXABAN 5 MG (ELIQUIS) TABLET PO SCH (08:04)
[2019-01-17 08:13] VITALS: BP 139/63
--- NOTE | 2019-01-17 08:20 | Cardiology Progress Note ---
Subjective Date Seen by Provider: Jan 17, 2019 Time Seen by Provider: 08:19 Subjective/Events-last exam Patient is sitting up in chair, no new complaints. Denies any chest pain or dyspnea. Objective-Cardiology Exam Last Set of Vital Signs Vital Signs 01/16/19 01/17/19 01/17/19 11:40 08:13 08:17 Temp 97.1 Pulse 72 Resp 16 B/P (MAP) 139/63 (88) Pulse Ox 93 O2 Delivery Room Air O2 Flow Rate 2 Capillary Refill : Less Than 3 Seconds General: Alert, Oriented X3, Cooperative HEENT: Atraumatic, PERRLA Neck: Supple, No JVD, No Thyromegaly Lungs: Clear to Auscultation, Normal Air Movement Heart: Regular Rate, Normal S1, Normal S2, No Murmurs Abdomen: Normal Bowel Sounds, Soft, No Tenderness, No Hepatosplenomegaly, No Masses Extremities: No Clubbing, No Cyanosis, No Edema, Normal Pulses, No Tenderness/ Swelling Skin: No Rashes, No Breakdown, No Significant Lesion Neuro: Normal Gait, Normal Speech, Strength at 5/5 X4 Ext, Normal Tone, Sensation Intact Psych/Mental Status: Mental Status NL, Mood NL Results Lab Laboratory Tests 01/17/19 03:10 A/P-Cardiology Admission Diagnosis Paroxysmal atrial flutter CAD HTN HLP Assessment/Plan Paroxysmal atrial flutter, s/p typical atrial flutter ablation by Dr. Jones 01/16. Coronary artery disease, reporting having 2 stents done in 2005. Most recent stress test and 2-D echocardiogram done January 2017 revealed no ischemia or infarct with normal EF. Continue current medication, continue to monitor. Permanent pacemaker, dual-chamber, pacer dependent, interrogation done in October 2018 showing atrial fibrillation/flutter with ventricular paced rhythm. Controlled. [id number] score of 5, yearly risk of stroke without oral anticoagulation is 6.7 percent. Maintained on Eliquis 5 mg twice daily Hypertension, well controlled on current medication, continue to monitor, continue on current medications. Hyperlipidemia maintained on Lipitor 80 mg daily, continue to monitor. Diabetes mellitus, followed and managed by primary care physician. Peripheral neuropathy maintain on gabapentin Nonobstructive carotid artery stenosis per carotid duplex done May 2018, continue to monitor History of colostomy in 2011 Erectile dysfunction-uses Viagra as needed. MARILYN RHOADES Jan 17, 2019 08:20
[2019-01-17] MEDS ORDERED: ENALAPRIL 10 MG (VASOTEC) TAB PO SCH (09:00)
[2019-01-17] MEDS ORDERED: ATENOLOL 100 MG TAB PO SCH (09:00)
[2019-01-17] MEDS ORDERED: DIGOXIN 0.125 MG (LANOXIN) TAB PO SCH (09:00)
[2019-01-17] MEDS ORDERED: FUROSEMIDE 20 MG (LASIX) TAB PO SCH (09:00)
[2019-01-17] MEDS ORDERED: OXYBUTYNIN ER 5 MG (DITROPAN XL) TAB NON-FORMULARY PO SCH (09:00)
[2019-01-17] MEDS ORDERED: ASPIRIN E.C. 81 MG (ECOTRIN) TAB PO SCH (09:00)
[2019-01-17] MEDS ORDERED: NON-FORMULARY MEDICATION 1 EA EA (Atenolol 100 MG) PO SCH (09:00)
[2019-01-17] MEDS ORDERED: LORATADINE (CLARITIN) 10 MG TAB PO SCH (09:00)
[2019-01-17] MEDS ORDERED: FINASTERIDE (PROSCAR) 5 MG TAB PO SCH (09:00)
[2019-01-17 10:35] VITALS: BP 139/63
== END 2019-01-17 09:25 | disposition home or self-care (01) ==
LOC: CATH 06:56 → ICU 12:09 → CATH 01-17 09:25
PROVIDERS: ATTEND Internal Medicine Interventional Cardiology
DX: I48.3 Typical atrial flutter (principal); Z11.2 Encounter for screening for other bacterial diseases; I25.10 Atherosclerotic heart disease of native coronary artery without angina pectoris; I10 Essential (primary) hypertension; E78.5 Hyperlipidemia, unspecified; E11.40 Type 2 diabetes mellitus with diabetic neuropathy, unspecified; I65.29 Occlusion and stenosis of unspecified carotid artery; N52.9 Male erectile dysfunction, unspecified; I48.0 Paroxysmal atrial fibrillation; J44.9 Chronic obstructive pulmonary disease, unspecified; K21.9 Gastro-esophageal reflux disease without esophagitis; I08.1 Rheumatic disorders of both mitral and tricuspid valves; I27.20 Pulmonary hypertension, unspecified; Z95.0 Presence of cardiac pacemaker; Z95.5 Presence of coronary angioplasty implant and graft; Z87.891 Personal history of nicotine dependence; Z79.84 Long term (current) use of oral hypoglycemic drugs; Z79.899 Other long term (current) drug therapy; Z79.01 Long term (current) use of anticoagulants; Z79.82 Long term (current) use of aspirin
CPT/HCPCS: 36415; 80048; 80053; 85027; 85610; 85730; 87081; 93005; 93613; 93623; 93653

== ENCOUNTER 2021-03-11 16:13 | Emergency (ER) | payer MEDICARE ==
[~2021-03-11] VITALS: Ht 165.3 cm; Wt 80.4 kg
[~2021-03-11 16:13] MED LIST changes: -PRD20T PO
--- NOTE | 2021-03-11 17:38 | ED Lower Extremity ---
General Chief Complaint: Lower Extremity Stated Complaint: L LEG PAIN Nursing Triage Note: TO ED PER W/[facility] FROM [facility] PATIENT REPORTS THAT HE HAS HAD A SWOLLEN L ANKLE. WAS TOLD BY [facility] THAT HE PROBLEY HAD A BLOOD CLOT IN ANKLE HAD NEG [facility] TODAY NOW HERE BECAUSE HE WANTS TO KNOW WANT IS WRONG WITH HIS ANKEL Nursing Sepsis Screen: No Definite Risk Source: patient Exam Limitations: no limitations History of Present Illness Date Seen by Provider: Mar 11, 2021 Time Seen by Provider: 17:38 Initial Comments L medial ankle pain x3 days no fever no known injuries. Outpatient US today negative for DVT> Onset: just prior to arrival Severity: moderate Pain/Injury Location: left ankle Modifying Factors: Worse With Movement Allergies and Home Medications Allergies Coded Allergies: No Known Drug Allergies (Unverified , 01/05/17) Home Medications Acetaminophen 500 Mg Tablet, 500-1,000 MG PO Q4H PRN for PAIN-MILD, (Reported) Apixaban 5 Mg Tablet, 5 MG PO BID, (Reported) Aspirin 81 Mg Tablet.dr, 81 MG PO DAILY, (Reported) Atenolol 100 Mg Tablet, 100 MG PO DAILY, (Reported) Atorvastatin Calcium 80 Mg Tablet, 40 MG PO HS, (Reported) TAKES 1/2 (80MG) TABLET Bismuth Subsalicylate 262 Mg/15 Ml Oral.susp, PO UD PRN for HEARTBURN, (Reported) Digoxin 125 Mcg Tablet, 125 MCG PO DAILY, (Reported) Enalapril Maleate 10 Mg Tablet, 5 MG PO DAILY, (Reported) Finasteride 5 Mg Tablet, 5 MG PO DAILY, (Reported) Furosemide 20 Mg Tablet, 20 MG PO DAILY, (Reported) Gabapentin 100 Mg Capsule, 200 MG PO BID, (Reported) Loratadine 10 Mg Tablet, 10 MG PO DAILY, (Reported) Metformin HCl 500 Mg Tab.er.24h, 500 MG PO BID WITH MEALS, (Reported) Oxybutynin Chloride 5 Mg Tab.er.24, 5 MG PO DAILY, (Reported) Prednisone 20 Mg Tab, 40 MG PO DAILY Prescribed by: YUMIKO HERNANDEZ on 03/11/211809 Terazosin HCl 5 Mg Capsule, 5 MG PO BID, (Reported) Patient Home Medication List Home Medication List Reviewed: Yes Review of Systems Constitutional: see HPI; No chills, No fever EENTM: see HPI Respiratory: no symptoms reported Cardiovascular: no symptoms reported Genitourinary: no symptoms reported Musculoskeletal: see HPI Skin: no symptoms reported Psychiatric/Neurological: No Symptoms Reported Past Gudwozl-Qegfxp-Mnsquo Hx Patient Social History Alcohol Use: Denies Use Smoking Status: Never a Smoker Former Smoker, Quit: Jan 06, 1988 2nd Hand Smoke Exposure: No Recent Infectious Disease Expo: No Recent Hopitalizations: No Immunizations Up To Date Tetanus Booster (TDap): Unknown Date of Pneumonia Vaccine: Nov 11, 2016 Date of Influenza Vaccine: Jul 20, 2018 Seasonal Allergies Seasonal Allergies: Yes Past Medical History Surgeries: Yes (colon, cataracts removed) Abdominal, Appendectomy, Gallbladder, Pacemaker Respiratory: No Currently Using CPAP: No Cardiac: Yes (PACEMAKER, STENTS, ATRIAL FLUTTER) Coronary Artery Disease, Hypertension Neurological: No Reproductive Disorders: No Sexually Transmitted Disease: No HIV/AIDS: No Genitourinary: No Gastrointestinal: Yes (COLOSTOMY) Gastroesophageal Reflux, Obstructive Bowel Musculoskeletal: No Endocrine: Yes Diabetes, Non-Insulin dep HEENT: Yes (GLASSES) Loss of Vision: Bilateral Hearing Impairment: Denies Cancer: Yes Melanoma Psychosocial: No Integumentary: No Blood Disorders: No Adverse Reaction/Blood Tranf: No (N/A) Family Medical History DVT 19 MOTHER FH: renal failure 19 FATHER No Pertinent Family Hx Physical Exam Vital Signs Vital Signs - First Documented 03/11/21 03/11/21 16:21 18:24 Temp 36.4 Pulse 80 Resp 18 B/P (MAP) 144/68 (93) Pulse Ox 99 Capillary Refill : Less Than 3 Seconds Height, Weight, BMI Height: 5'5.00" Weight: 175lbs. 0.0oz. [id number]; 29.00 BMI Method:Stated General Appearance: WD/WN, no apparent distress HEENT: PERRL/EOMI, normal ENT inspection Respiratory: no respiratory distress, no accessory muscle use Hips: bilateral hip non-tender, bilateral hip normal inspection, bilateral hip normal range of motion Legs: bilateral leg non-tender, bilateral leg normal inspection, bilateral leg normal range of motion Knees: bilateral knee non-tender, bilateral knee normal inspection, bilateral knee normal range of motion Ankles: left ankle swelling (minimal Swelling over the anteromedial ankle no erythema no ecchymosis) Feet: bilateral foot non-tender, bilateral foot normal inspection, bilateral foot normal range of motion Skin: normal color, warm/dry Progress/Results/Core Measures Results/Orders My Orders Orders - YUMIKO HERNANDEZ APRN Ankle, Left, 3 Views (03/11/21 17:32) Vital Signs/I&O 03/11/21 03/11/21 16:21 18:24 Temp 36.4 36.4 Pulse 80 80 Resp 18 18 B/P (MAP) 144/68 (93) 144/68 (93) Pulse Ox 99 Blood Pressure Mean: 93 Departure Impression Primary Impression: Osteoarthritis Disposition: 01 HOME, SELF-CARE Condition: Stable Departure-Patient Inst. Decision time for Depature: 18:07 Referrals: ANA CRUZ MD (PCP/Family) Primary Care Physician Patient Instructions: Osteoarthritis (DC) Add. Discharge Instructions: 1. medication as directed 2. follow up with your doctor next week All discharge instructions reviewed with patient and/or family. Voiced understanding. Scripts Prednisone (Prednisone) 20 Mg Tab 40 MG PO DAILY, #6 TAB Prov: YUMIKO HERNANDEZ APRN 03/11/21 YUMIKO HERNANDEZ APRN Mar 11, 2021 17:38
--- NOTE | 2021-03-11 17:56 | Diagnostic Imaging Report ---
INDICATION: Pain. 3 views were obtained. FINDINGS: There are chronic appearing degenerative and likely posttraumatic changes about the left ankle. The plafonds and talar dome are intact. Ankle mortise is symmetric. There is no acute fracture or dislocation. Soft tissues grossly unremarkable. IMPRESSION: Chronic appearing degenerative and possibly posttraumatic changes about the left ankle, otherwise unremarkable. Dictated by: Dictated on workstation # [id number]
[2021-03-11] MEDS ORDERED: PRD20T PO (18:10)
[2021-03-11 18:24] VITALS: BP 144/68
== END 2021-03-11 18:24 | disposition home or self-care (01) ==
LOC: EDUNIT# 16:13 → ER 16:14
DX: M19.072 Primary osteoarthritis, left ankle and foot (principal); E11.9 Type 2 diabetes mellitus without complications; I10 Essential (primary) hypertension; I25.10 Atherosclerotic heart disease of native coronary artery without angina pectoris; I48.92 Unspecified atrial flutter; Z95.0 Presence of cardiac pacemaker; Z95.5 Presence of coronary angioplasty implant and graft; Z87.891 Personal history of nicotine dependence; Z79.01 Long term (current) use of anticoagulants; Z79.82 Long term (current) use of aspirin; Z79.84 Long term (current) use of oral hypoglycemic drugs; Z79.899 Other long term (current) drug therapy
CPT/HCPCS: 73610; 99283

== ENCOUNTER → 2021-03-11 | Outpatient (CLI) | payer MEDICARE ==
[~2021-03-11] MED LIST changes: +ASPI-1238 PO; -ASPI-983 PO; -DIGO125T PO; +DIGO125T3 PO; +ENAL10TA16 PO; +METF-865 PO; -METF500T8 PO; +OXYB-52 PO; -OXYB5TAB PO; +OXYB5TAB13 PO; -OXYB5TAB9 PO; +PRD20T PO; -TERA5CAP3 PO
--- NOTE | 2021-03-11 16:44 | Diagnostic Imaging Report ---
PROCEDURE: US left lower extremity venous. TECHNIQUE: Multiple real-time grayscale images were obtained over the left lower extremity in various projections. Additional duplex Doppler and color Doppler images were also obtained. INDICATION: Left ankle swelling and pain. FINDINGS: There is no evidence of left lower extremity DVT. Left lower extremity deep venous system shows normal compressibility with normal response to augmentation and Valsalva. No fluid collection or mass is detected. IMPRESSION: No evidence of left lower extremity DVT. Dictated by: Dictated on workstation # [id number]
== END ==
LOC: RAD 15:19
PROVIDERS: ATTEND Pediatrics
DX: M79.89 Other specified soft tissue disorders (principal); M25.572 Pain in left ankle and joints of left foot

== ENCOUNTER → 2021-04-25 | Outpatient (CLI) | payer MEDICARE ==
[~2021-04-25] MED LIST changes: +PRD20T PO
== END ==
LOC: CARD 09:30
PROVIDERS: ATTEND Physician Assistant
DX: I25.10 Atherosclerotic heart disease of native coronary artery without angina pectoris (principal); I35.1 Nonrheumatic aortic (valve) insufficiency; I10 Essential (primary) hypertension
CPT/HCPCS: 93306

== ENCOUNTER → 2021-07-07 | Outpatient (CLI) | payer MEDICARE ==
[~2021-07-07] VITALS: Ht 165 cm; Wt 79.0 kg
[~2021-07-07] MED LIST changes: +CATHETER FLUSH 10 ML SYR IV PRN; +REGADENOSON 0.4 MG/5 ML SYR (LEXISCAN) IV ONE
[2021-07-07 09:21] VITALS: BP 138/78
--- NOTE | 2021-07-07 11:28 | Cardiology Stress Test Report ---
Stress Test Report Date of Procedure/Referring: Date of Procedure: Jul 07, 2021 Nirmala Banda Admitting Physician Niall Moya MD Indications: CAD Baseline Heart Rate: 87 Baseline Blood Pressure: Blood Pressure Systolic: 138 Blood Pressure Diastolic: 78 Baseline Vitals Vital Signs Date Time Temp Pulse Resp B/P (MAP) Pulse Ox O2 Delivery O2 Flow Rate FiO2 07/07/21 09:21 87 138/78 (98) 97 Baseline EKG: Baseline EKG: NSR Summary After explaining the procedure to the patient, he signed a consent and then brought to the stress nuclear laboratory. Patient received 0.4 mg Lexiscan for stress test, ECG, heart rate and blood pressure were monitored continuously. Resting and stress dose of radio tracer were injected, imaging was acquired and reviewed in short axis, horizontal long axis and vertical long axis views. TID: 1.08 SSS: 6 SDS: 0 EF: 66 1. Patient tolerated Lexiscan well 2. Baseline normal sinus rhythm with intermittent episodes of paced rhythm 3. Diaphragmatic and intestinal artifact affecting the images of the inferior wall with fixed defect involving the whole inferior wall and inferior apex, probably due to diaphragmatic and intestinal artifact. No significant ischemia was noted 4. Normal left ventricular size, normal contractility, EF 66% NICOLAS OLSON MD Jul 07, 2021 11:28
== END ==
LOC: CARD 08:15
PROVIDERS: ATTEND Physician Assistant
DX: I25.10 Atherosclerotic heart disease of native coronary artery without angina pectoris (principal); I10 Essential (primary) hypertension
CPT/HCPCS: 78452; 93017; A9502

== ENCOUNTER → 2022-11-11 | Outpatient (CLI) | payer MEDICARE ==
[~2022-11-11] VITALS: Ht 167.7 cm; Wt 79.5 kg
[~2022-11-11] MED LIST changes: -CATHETER FLUSH 10 ML SYR IV PRN; -REGADENOSON 0.4 MG/5 ML SYR (LEXISCAN) IV ONE
== END | disposition home or self-care (01) ==
LOC: PREOP 05:31
PROVIDERS: ATTEND Otolaryngology Otolaryngology/Facial Plastic Surgery
DX: Z01.818 Encounter for other preprocedural examination (principal)

== ENCOUNTER 2022-12-16 05:31 | Outpatient (CLI) | payer MEDICARE ==
[~2022-12-16] VITALS: Ht 165.1 cm; Wt 75.0 kg
[2022-12-16] MEDS ORDERED: EMPA25TA PO (15:15)
[2022-12-16] MEDS ORDERED: CARB100C9 PO (15:18)
== END 2022-12-17 08:38 | disposition home or self-care (01) ==
LOC: PREOP 05:31
PROVIDERS: ATTEND Otolaryngology Otolaryngology/Facial Plastic Surgery
DX: Z01.818 Encounter for other preprocedural examination (principal)

== ENCOUNTER 2022-12-24 06:49 | Day surgery (SDC) | payer MEDICARE ==
[~2022-12-24] VITALS: Ht 165.1 cm; Wt 75.0 kg
[2022-12-24] VITALS (9 sets, daily range): BP systolic 142–172; BP diastolic 62–80
[~2022-12-24 06:49] MED LIST changes: +CARB100C9 PO; +EMPA25TA PO
[2022-12-24] MEDS ORDERED: LIDOCAINE/EPI 1%-1:100,000 (XYLOCAINE) 20ML ONE (08:03)
[2022-12-24] MEDS ORDERED: LIDOCAINE 1% INJ 20 ML VIAL ONE (08:03)
[2022-12-24] MEDS ORDERED: MUPIROCIN 2% OINT 22 GM (BACTROBAN) TUBE ONE (08:03)
[2022-12-24 08:11] LABS: BASOPHILS # (AUTO) 0.1 10^3/uL (0.0-0.1); BASOPHILS % (AUTO) 1 % (0-10); EOSINOPHILS # (AUTO) 0.3 10^3/uL (0.0-0.3); EOSINOPHILS % (AUTO) 4 % (0-10); HEMATOCRIT 42 % (40-54); HEMOGLOBIN 14.1 g/dL (13.3-17.7); LYMPHOCYTES # (AUTO) 1.9 10^3/uL (1.0-4.0); LYMPHOCYTES % (AUTO) 27 % (12-44); MEAN CORPUSCULAR HEMOGLOBIN 32 pg (25-34); MEAN CORPUSCULAR HGB CONC 34 g/dL (32-36); MEAN CORPUSCULAR VOLUME 93 fL (80-99); MONOCYTES # (AUTO) 0.6 10^3/uL (0.0-1.0); MONOCYTES % (AUTO) 8 % (0-12); NEUTROPHILS # (AUTO) 4.3 10^3/uL (1.8-7.8); NEUTROPHILS % (AUTO) 60 % (42-75); PLATELET COUNT 146 10^3/uL (130-400); WHITE BLOOD COUNT 7.2 10^3/uL (4.3-11.0)
[2022-12-24] MEDS ORDERED: LACTATED RINGERS 1,000 ML IV PRN (08:15)
[2022-12-24] MEDS ORDERED: LIDOCAINE PF 2% 5 ML (XYLOCAINE) VIAL ONE (08:17)
[2022-12-24] MEDS ORDERED: proPOfol 200 MG/20 ML (DIPRIVAN) VIAL IV ONE (08:17)
[2022-12-24] MEDS ORDERED: ONDANSETRON 4 MG/2 ML (SDV) Z0FRAN ONE (08:17)
[2022-12-24] MEDS ORDERED: fentaNYL INJ 100 MCG/2 ML AMP ONE (08:17)
[2022-12-24 08:30] LABS: CALCIUM 9.8 MG/DL (8.5-10.1); CREATININE SERUM 0.79 MG/DL (0.60-1.30); POTASSIUM 4.4 MMOL/L (3.6-5.0)
--- NOTE | 2022-12-24 09:10 | Progress Note-Pre Operative ---
Pre-Operative Progress Note Date of Available H&P: Dec 24, 2022 Date H&P Reviewed: Dec 24, 2022 Time H&P Reviewed: 08:00 History & Physical: H&P Reviewed, Patient Examed, No changes noted Changes from last HP none Pre-Operative Diagnosis: Skin Cancer Left EAr JUAN ALBERTO HEBERT MD Dec 24, 2022 09:09
--- NOTE | 2022-12-24 09:11 | Progress Note-Post Operative ---
Post-Operative Progess Note Surgeon (s)/Tool Polisher (s) Surgeon JUAN ALBERTO HEBERT MD Tool Polisher n/a Pre-Operative Diagnosis Skin Cancer Left EAr Post-Operative Diagnosis same Post-Op Procedure Note Date of Procedure: Dec 24, 2022 Name of Procedure Performed: Excisoin of Skin Cancer Left Auricle, REconstructions with FTSG, Donor Site Left Preauricular site Description & Findings Description and Findings: n/a Anesthesia Type lma Estimated Blood Loss minimal Packing none. Specimen(s) collected/removed left skin lesion to pathology for review JUAN ALBERTO HEBERT MD Dec 24, 2022 09:11
[2022-12-24] MEDS ORDERED: HYDROcodone/APAP 5 MG/325 MG (LORTAB) TAB PO PRN (09:15)
[2022-12-24] MEDS ORDERED: ACETAMINOPHEN 325 MG TABLET PO PRN (09:15)
[2022-12-24] MEDS ORDERED: SEVOFLURANE (ULTANE) 15 ML INHAL SOLN ONE (09:49)
--- NOTE | 2022-12-24 10:08 | Anesthesia-General Post-Op ---
General Patient Condition Mental Status/LOC: Same as Preop Cardiovascular: Satisfactory Nausea/Vomiting: Absent Respiratory: Satisfactory Pain: Controlled Complications: Absent Post Op Complications Complications None Follow Up Care/Instructions Patient Instructions None needed. Anesthesia/Patient Condition Patient Condition Patient is doing well, no complaints, stable vital signs, no apparent adverse anesthesia problems. No complications reported per nursing. WILDER DUMAS CRNA Dec 24, 2022 10:08
[2022-12-24] MEDS ORDERED: fentaNYL INJ 100 MCG/2 ML AMP IVP ONE (10:15)
[2022-12-24] MEDS ORDERED: ONDANSETRON 4 MG/2 ML (SDV) Z0FRAN IVP PRN (10:15)
== END 2022-12-24 11:27 ==
LOC: SDC 06:49
PROVIDERS: ATTEND Otolaryngology Otolaryngology/Facial Plastic Surgery
DX: D04.22 Carcinoma in situ of skin of left ear and external auricular canal (principal); Z87.891 Personal history of nicotine dependence
CPT/HCPCS: 36415; 80048; 82947; 85025; 87081; 88305; 88331

== ENCOUNTER 2023-08-16 11:33 | Observation (INO) | payer MEDICARE ==
[~2023-08-16] VITALS: Ht 165 cm; Wt 80.0 kg
[2023-08-16] VITALS (10 sets, daily range): BP systolic 126–147; BP diastolic 56–78
[~2023-08-16 11:33] MED LIST changes: -ENAL10TA16 PO; +ENLP10T PO; +FAMO-356 PO; -FAMO20TA3 PO; -OXYB5TAB13 PO; +OXYB5TAB14 PO
--- NOTE | 2023-08-16 11:49 | ED Chest Pain ---
General Chief Complaint: Chest Pain Stated Complaint: CHEST PAINS | WEAKNESS Nursing Triage Note: PT AMB TO RM 3 WITH C/O CP X4 HOURS, HE DESCRIBES IT PRESSURE. PT ALSO C/O FATIGUE Source: patient Exam Limitations: no limitations History of Present Illness Date Seen by Provider: Aug 16, 2023 Time Seen by Provider: 11:50 Initial Comments Patient is a 87-year-old male who presents to ED for chest pressure, fatigue and weakness. Chest pressure started 4 hours ago while driving. She has pressure has improved. Associated shortness of breath with the pressure. Patient states he has been feeling fatigue over the past 24 hours. Weak over the past 2 to 3 weeks. Denies of any cough, runny nose, sore throat or flulike symptoms. No pain with urination abdominal pain vomiting or diarrhea. Patient does have a pacemaker. History of CHF, AFiib but denies COPD. Not currently on anticoagulant. History of diabetes, high cholesterol. History of coronary artery disease requiring cardiac stents. Follows Dr. Gillespie. Here with family at bedside. Denies of any obvious lower leg swelling, lower leg pain or recent surgeries. Allergies and Home Medications Allergies Coded Allergies: No Known Drug Allergies (Unverified , 12/24/22) Patient Home Medication List Home Medication List Reviewed: Yes Acetaminophen (Tylenol Extra Strength) 500 Mg Tablet, 500-1,000 MG PO Q4H PRN for PAIN-MILD, (Reported) Entered as Reported by: SAMUEL DANIEL on 01/06/17 1022 Atenolol (Atenolol) 100 Mg Tablet, 100 MG PO DAILY, (Reported) Entered as Reported by: SAMUEL DANIEL on 07/21/18 1630 Atorvastatin Calcium (Atorvastatin Calcium) 80 Mg Tablet, 40 MG PO HS, (Reporte d) Entered as Reported by: SAMUEL DANIEL on 01/06/17 1018 Carbamazepine (Carbamazepine) 100 Mg Cpmp.12hr, 50 MG PO BID, (Reported) Entered as Reported by: Gabbie Lopez on 12/16/22 1518 Digoxin (Digoxin) 125 Mcg Tablet, 125 MCG PO DAILY, (Reported) Entered as Reported by: SAMUEL DANIEL on 01/06/17 1018 Empagliflozin (Jardiance) 25 Mg Tablet, 25 MG PO DAILY, (Reported) Entered as Reported by: Gabbie Lopez on 12/16/22 1515 Enalapril Maleate (Enalapril Maleate) 10 Mg Tablet, 5 MG PO DAILY, (Reported) Entered as Reported by: SAMUEL DANIEL on 07/21/18 1630 Finasteride (Finasteride) 5 Mg Tablet, 5 MG PO DAILY, (Reported) Entered as Reported by: SAMUEL DANIEL on 07/21/18 1622 Oxybutynin Chloride (Oxybutynin Chloride ER) 5 Mg Tab.er.24, 5 MG PO DAILY, (Reported) Entered as Reported by: SAMUEL DANIEL on 07/21/18 1630 Terazosin HCl (Terazosin HCl) 5 Mg Capsule, 5 MG PO BID, (Reported) Entered as Reported by: SAMUEL DANIEL on 07/21/18 1630 Review of Systems Review of Systems Constitutional: No chills, No diaphoresis, No fever; malaise, weakness EENTM: No Double Vision, No Eye Pain Respiratory: Denies Cough, Denies Orthopnea; Shortness of Air Cardiovascular: Chest Pain Gastrointestinal: Denies Abdominal Pain, Denies Diarrhea, Denies Nausea, Denies Vomiting Genitourinary: Denies Burning, Denies Discharge, Denies Drainage, Denies Frequency, Denies Flank Pain Musculoskeletal: No back pain, No joint pain Skin: No change in color, No change in hair/nails All Other Systems Reviewed Negative Unless Noted: Yes Past Wfadiwz-Obyguw-Vthnho Hx Patient Social History Tobacco Use?: No Use of E-Cig and/or Vaping dev: No Substance use?: No Alcohol Use?: No Pt feels they are or have been: No Immunizations Up To Date Tetanus Booster (TDap): Less than 5yrs Influenza Vaccine Up-to-Date: Yes; Up-to-Date First/Initial COVID19 Vaccinat: 11/13/20 Second COVID19 Vaccination Nam: 12/11/20 Third COVID19 Vaccination Date: 09/08/21 Seasonal Allergies Seasonal Allergies: No Past Medical History Surgery/Hospitalization HX: colostomy, stents, pacer, appy, heart cath htn Surgeries: Yes (colon, cataracts removed) Appendectomy, Gallbladder Respiratory: Yes COPD Currently Using CPAP: No Currently Using BIPAP: No Cardiac: Yes Atrial Fibrillation, Hypertension, Valvular Heart Disease Neurological: No Reproductive Disorders: No Sexually Transmitted Disease: No HIV/AIDS: No Genitourinary: No Gastrointestinal: Yes Gastroesophageal Reflux Musculoskeletal: Yes Arthritis Endocrine: Yes Diabetes, Non-Insulin dep HEENT: Yes Cataract Loss of Vision: Denies Hearing Impairment: Denies Cancer: Yes Skin What Type of Treatment Did You: Surgical Intervention Psychosocial: No Integumentary: No Blood Disorders: No Adverse Reaction/Blood Tranf: No Family Medical History DVT 19 MOTHER FH: renal failure 19 FATHER No Pertinent Family Hx Physical Exam Vital Signs Vital Signs - First Documented 08/16/23 11:38 Temp 36.8 Pulse 81 Resp 14 B/P (MAP) 121/56 (77) Pulse Ox 94 O2 Delivery Room Air Capillary Refill : Height, Weight, BMI Height: 5'5.00" Weight: 175lbs. 0.0oz. 79.045518ht; 29.00 BMI Method:Stated General Appearance: No Apparent Distress, WD/WN HEENT: PERRL/EOMI, TMs Normal, Normal ENT Inspection, Pharynx Normal Neck: Full Range of Motion, Normal Inspection, Non Tender, Supple Respiratory: Chest Non Tender, Lungs Clear, Normal Breath Sounds, No Accessory Muscle Use, No Respiratory Distress Cardiovascular: Regular Rate, Rhythm, No Edema, No Gallop, No JVD, No Murmur Gastrointestinal: Normal Bowel Sounds, No Organomegaly, No Pulsatile Mass, Non Tender Extremity: Normal Capillary Refill, Normal Inspection, Normal Range of Motion, Non Tender Neurologic/Psychiatric: Alert, Oriented x3, No Motor/Sensory Deficits, Normal Mood/Affect, 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 Norm as Tested Skin: Normal Color, Warm/Dry Lymphatic: No Adenopathy Progress/Results/Core Measures Results/Orders Lab Results Laboratory Tests Test 08/16/23 11:45 Range/Units White Blood Count 7.6 4.3-11.0 10^3/uL Red Blood Count 4.31 4.30-5.52 10^6/uL Hemoglobin 13.7 13.3-17.7 g/dL Hematocrit 41 40-54 % Mean Corpuscular Volume 95 80-99 fL Mean Corpuscular Hemoglobin 32 25-34 pg Mean Corpuscular Hemoglobin Concent 34 32-36 g/dL Red Cell Distribution Width 12.2 10.0-14.5 % Platelet Count 141 130-400 10^3/uL Mean Platelet Volume 9.8 9.0-12.2 fL Immature Granulocyte % (Auto) 1 % Neutrophils (%) (Auto) 73 42-75 % Lymphocytes (%) (Auto) 18 12-44 % Monocytes (%) (Auto) 6 0-12 % Eosinophils (%) (Auto) 2 0-10 % Basophils (%) (Auto) 1 0-10 % Neutrophils # (Auto) 5.5 1.8-7.8 10^3/uL Lymphocytes # (Auto) 1.4 1.0-4.0 10^3/uL Monocytes # (Auto) 0.5 0.0-1.0 10^3/uL Eosinophils # (Auto) 0.1 0.0-0.3 10^3/uL Basophils # (Auto) 0.1 0.0-0.1 10^3/uL Immature Granulocyte # (Auto) 0.0 0.0-0.1 10^3/uL Prothrombin Time 14.0 12.2-14.7 SEC INR Comment 1.0 0.8-1.4 Activated Partial Thromboplast Time 29 24-35 SEC Sodium Level 137 135-145 MMOL/L Potassium Level 4.1 3.6-5.0 MMOL/L Chloride Level 103 98-107 MMOL/L Carbon Dioxide Level 26 21-32 MMOL/L Anion Gap 8 5-14 MMOL/L Blood Urea Nitrogen 16 7-18 MG/DL Creatinine 0.90 0.60-1.30 MG/DL Estimat Glomerular Filtration Rate 82 BUN/Creatinine Ratio 18 Glucose Level 131 H 70-105 MG/DL Calcium Level 9.4 8.5-10.1 MG/DL Corrected Calcium 9.6 8.5-10.1 MG/DL Magnesium Level 2.1 1.6-2.4 MG/DL Total Bilirubin 0.4 0.1-1.0 MG/DL Aspartate Amino Transf (AST/SGOT) 17 5-34 U/L Alanine Aminotransferase (ALT/SGPT) 21 0-55 U/L Alkaline Phosphatase 96 40-136 U/L Myoglobin 57.6 10.0-92.0 NG/ML Troponin I < 0.028 <0.028 NG/ML B-Type Natriuretic Peptide 69.0 <100.0 PG/ML Total Protein 6.3 L 6.4-8.2 GM/DL Albumin 3.8 3.2-4.5 GM/DL Lipase 17 8-78 U/L My Orders Orders - TERRY,STONEY A PA Cbc And Automated Diff (08/16/23 11:47) Magnesium (08/16/23 11:47) Chest 1 View, Ap/Pa Only (08/16/23 11:47) Ekg Tracing (08/16/23 11:47) Comprehensive Metabolic Panel (08/16/23 11:47) Myoglobin Serum (08/16/23 11:47) Protime With Inr (08/16/23 11:47) Partial Thromboplastin Time (08/16/23 11:47) O2 (08/16/23 11:47) Monitor-Rhythm Ecg Trace Only (08/16/23 11:47) Lipid Panel (08/17/23 06:00) Ed Iv/Invasive Line Start (08/16/23 11:47) Lipase (08/16/23 11:47) Bnp Bandar (08/16/23 11:47) Troponin I Bandar (08/16/23 11:47) Aspirin Chewable Tablet (Aspirin Chewabl (08/16/23 12:00) Ua Culture If Indicated (08/16/23 11:49) Medications Given in ED Current Medications Medications Dose Ordered Sig/Rich Route Start Time Stop Time Status Last Admin Dose Admin Aspirin 324 mg ONCE ONCE PO 08/16/23 12:00 08/16/23 12:01 DC 08/16/23 11:57 324 MG Vital Signs/I&O 08/16/23 11:38 Temp 36.8 Pulse 81 Resp 14 B/P (MAP) 121/56 (77) Pulse Ox 94 O2 Delivery Room Air Blood Pressure Mean: 77 Comment Electronic atrial pacemaker, minimal ST depression, 73 bpm, QRS duration 88 MS, QTc 384 MS. Departure Communication (PCP) Patient presents ED with chest pain weakness fatigue. Cardiac history with history of cardiac stents. Does have a pacemaker. Denies COPD. Cardiac risk factors with diabetes, hypertension dyslipidemia, CAD. Follows Dr. Gillespie. Currently pain free. Did experience some chest pressure today with shortness of breath. Weakness over the past 2 or 3 weeks fatigue over the past 24 hours. Denies of any flulike symptoms. Did receive a full aspirin here. Not currently on anticoagulant. Vital signs were stable. EKG obtained which showed atrial paced rhythm. Minimal ST depression. Cardiac work-up was initiated. Chest x- ray was negative for pneumonia, pneumothorax. CBC, CMP was grossly unremarkable. Normal troponin and BNP. He was not tachycardic or hypoxic. No appreciation of lower leg swelling erythema or pain on palpation. No recent surgeries. Low risk factors for PE. Heart score of 4. Concerning for cardiac in nature. Did have a cardiac work-up in 2020 with a cardiac stress test that did show no significant ischemia. Due to patient's age, cardiac risk factors patient will be admitted for chest pain. Discussed patient with Dr. Gillespie scrapper who recommended Lovenox and aspirin. Discussed patient with Dr. Martinez who agreed to accept patient. Did interrogate his pacemaker which did show some PVCs but no arrhythmias. Does have a history of A-fib. Patient agrees for for admission and further evaluation. Impression Primary Impression: Chest pain Disposition: ADMITTED INPATIENT Condition: Stable Admissions Decision to Admit Reason: Admit from ER (General) Decision to Admit/Date: Aug 16, 2023 Time/Decision to Admit Time: 12:32 Departure-Patient Inst. Referrals: WALTER BARBER MD (PCP/Family) Primary Care Physician STONEY TERRY Aug 16, 2023 11:49
[2023-08-16 11:52] LABS: BASOPHILS # (AUTO) 0.1 10^3/uL (0.0-0.1); BASOPHILS % (AUTO) 1 % (0-10); EOSINOPHILS # (AUTO) 0.1 10^3/uL (0.0-0.3); EOSINOPHILS % (AUTO) 2 % (0-10); HEMATOCRIT 41 % (40-54); HEMOGLOBIN 13.7 g/dL (13.3-17.7); LYMPHOCYTES # (AUTO) 1.4 10^3/uL (1.0-4.0); LYMPHOCYTES % (AUTO) 18 % (12-44); MEAN CORPUSCULAR HEMOGLOBIN 32 pg (25-34); MEAN CORPUSCULAR HGB CONC 34 g/dL (32-36); MEAN CORPUSCULAR VOLUME 95 fL (80-99); MEAN PLATELET VOLUME 9.8 fL (9.0-12.2); MONOCYTES # (AUTO) 0.5 10^3/uL (0.0-1.0); MONOCYTES % (AUTO) 6 % (0-12); NEUTROPHILS # (AUTO) 5.5 10^3/uL (1.8-7.8); NEUTROPHILS % (AUTO) 73 % (42-75); PLATELET COUNT 141 10^3/uL (130-400); WHITE BLOOD COUNT 7.6 10^3/uL (4.3-11.0)
[2023-08-16 11:59] LABS: ALBUMIN 3.8 GM/DL (3.2-4.5)
[2023-08-16 12:00] LABS: CHLORIDE 103 MMOL/L (98-107); POTASSIUM 4.1 MMOL/L (3.6-5.0); SODIUM 137 MMOL/L (135-145)
[2023-08-16] MEDS ORDERED: ASPIRIN 81 MG CHEWABLE TABLET PO ONE (12:00)
[2023-08-16 12:01] LABS: CALCIUM 9.4 MG/DL (8.5-10.1)
[2023-08-16 12:02] LABS: GLUCOSE 131 MG/DL (70-105); TOTAL PROTEIN 6.3 GM/DL (6.4-8.2)
[2023-08-16 12:03] LABS: CARBON DIOXIDE 26 MMOL/L (21-32)
[2023-08-16 12:04] LABS: BILIRUBIN,TOTAL 0.4 MG/DL (0.1-1.0)
[2023-08-16 12:05] LABS: ALKALINE PHOSPHATASE 96 U/L (40-136)
[2023-08-16 12:06] LABS: GFR ESTIMATED 82
[2023-08-16 12:07] LABS: BUN/CREATININE RATIO 18
[2023-08-16 12:08] LABS: ALANINE AMINOTRANSFERASE 21 U/L (0-55)
[2023-08-16 12:09] LABS: MAGNESIUM 2.1 MG/DL (1.6-2.4)
[2023-08-16 12:10] LABS: LIPASE 17 U/L (8-78)
--- NOTE | 2023-08-16 12:21 | Diagnostic Imaging Report ---
CLINICAL INDICATION: Patient with chest pain. EXAM: Portable chest x-ray, upright view. COMPARISON: None. FINDINGS: Lungs/pleura: Lungs are clear. There is no pneumothorax. There is no pleural effusion. Mediastinum: Unremarkable. Pulmonary vasculature: Unremarkable. Heart: The heart size is within normal limits. A cardiac pacemaker is seen overlying the left chest with two leads projecting over the heart. Bones/extrathoracic soft tissue: There are degenerative spurs involving the thoracic spine. IMPRESSION: There is no radiographic evidence of acute cardiopulmonary process. Dictated by: Dictated on workstation # [id number]
[2023-08-16 13:35] LABS: BACTERIA,URINE NEGATIVE /HPF; BILIRUBIN,URINE NEGATIVE (NEGATIVE); CLARITY,URINE CLEAR; COLOR,URINE YELLOW; GLUCOSE, URINE (UA) 3+ (NEGATIVE); KETONES,URINE NEGATIVE (NEGATIVE); LEUKOCYTE ESTERASE ,URINE NEGATIVE (NEGATIVE); NITRITE,URINE NEGATIVE (NEGATIVE); PH,URINE 5.5 (5-9); PROTEIN,URINE NEGATIVE (NEGATIVE)
[2023-08-16] MEDS ORDERED: BISACODYL 10 MG SUPPOSITORY PR PRN (13:45)
[2023-08-16] MEDS ORDERED: ANTACID SUSPENSION 30 ML UDC PO PRN (13:45)
[2023-08-16] MEDS ORDERED: ONDANSETRON INJECTION 4 MG/2 ML (SDV) IV PRN (13:45)
[2023-08-16] MEDS ORDERED: MELATONIN 3 MG TABLET PO PRN (13:45)
[2023-08-16] MEDS ORDERED: ONDANSETRON 4 MG ORAL DISSOLVE TABLET PO PRN (13:45)
[2023-08-16] MEDS ORDERED: MILK OF MAGNESIA 400 MG/5 ML 30 ML UDC PO PRN (13:45)
[2023-08-16] MEDS ORDERED: LACTULOSE SYRUP 10GM/15ML 30ML UDC PO PRN (13:45)
[2023-08-16] MEDS ORDERED: ENOXAPARIN 100 MG/1 ML SYRINGE SC SCH (13:45)
[2023-08-16] MEDS ORDERED: CALCIUM CARBONATE 500 MG CHEW TABLET PO PRN (13:45)
[2023-08-16] MEDS ORDERED: ACETAMINOPHEN 325 MG TABLET PO PRN (13:45)
[2023-08-16] MEDS: ENOXAPARIN 80 MG/0.8 ML SYRINGE SC SCH (15:01)
[2023-08-16] MEDS: SENNOSIDES 8.6 MG TABLET PO SCH (20:53)
[2023-08-16] MEDS: DOCUSATE SODIUM 100 MG CAPSULE PO SCH (20:53)
[2023-08-17] VITALS (15 sets, daily range): BP systolic 112–180; BP diastolic 43–81
[2023-08-17] MEDS: ENOXAPARIN 80 MG/0.8 ML SYRINGE SC SCH ×2 (01:20→14:07)
[2023-08-17 05:08] LABS: BASOPHILS # (AUTO) 0.1 10^3/uL (0.0-0.1); BASOPHILS % (AUTO) 1 % (0-10); EOSINOPHILS # (AUTO) 0.2 10^3/uL (0.0-0.3); EOSINOPHILS % (AUTO) 3 % (0-10); HEMATOCRIT 40 % (40-54); HEMOGLOBIN 13.2 g/dL (13.3-17.7); LYMPHOCYTES # (AUTO) 2.2 10^3/uL (1.0-4.0); LYMPHOCYTES % (AUTO) 32 % (12-44); MEAN CORPUSCULAR HEMOGLOBIN 31 pg (25-34); MEAN CORPUSCULAR HGB CONC 33 g/dL (32-36); MEAN CORPUSCULAR VOLUME 93 fL (80-99); MEAN PLATELET VOLUME 10.4 fL (9.0-12.2); MONOCYTES # (AUTO) 0.5 10^3/uL (0.0-1.0); MONOCYTES % (AUTO) 7 % (0-12); NEUTROPHILS # (AUTO) 3.9 10^3/uL (1.8-7.8); NEUTROPHILS % (AUTO) 57 % (42-75); PLATELET COUNT 141 10^3/uL (130-400); WHITE BLOOD COUNT 6.8 10^3/uL (4.3-11.0)
[2023-08-17 05:20] LABS: CALCIUM 9.3 MG/DL (8.5-10.1)
[2023-08-17 05:25] LABS: CREATININE SERUM 0.77 MG/DL (0.60-1.30)
--- NOTE | 2023-08-17 08:18 | Consultation-Cardiology ---
HPI-Cardiology Cardiology Consultation Date of Consultation 08/17/23 Date of Admission Time Seen by Provider: 08:14 Indication: Chest pain HPI 87-year-old gentleman with history of coronary artery disease, hypertension, atrial fibrillation. Was stressed out yesterday and had an episode of chest pain lasted for few minutes described it as dull in nature on the left side of his chest no associated symptoms of shortness of breath, palpitation, syncope or near syncopal episodes. EKG did not show any acute abnormality. Last stress test was done in 2020. Home Medications & Allergies Allergies: Coded Allergies: No Known Drug Allergies (Unverified , 12/24/22) Home Medication List Reviewed: Yes XXZ-Vltieh-Zovyyk Hx Patient Social History Marital Status: Employed/Student: retired Smoking Status: Never a Smoker Type Used: Cigars, Cigarettes 2nd Hand Smoke Exposure: No Recent Hopitalizations: No Alcohol Use?: No Immunizations Up To Date Tetanus Booster (TDap): Less than 5yrs Date of Pneumonia Vaccine: Nov 11, 2022 Date of Influenza Vaccine: Jun 20, 2022 Past Medical History Discussed below Family Medical History Significant Family History: No Pertinent Family Hx Family History: DVT 19 MOTHER FH: renal failure 19 FATHER Review of Systems-General Review of Systems Constitutional: No chills, No diaphoresis, No fever; malaise, weakness EENTM: see HPI, no symptoms reported Respiratory: no symptoms reported, see HPI Cardiovascular: see HPI, chest pain; No edema, No Hx of Intervention, No palpi tations, No syncope, No vascular heart diseas, No other Gastrointestinal: no symptoms reported, see HPI Genitourinary: no symptoms reported, see HPI Musculoskeletal: No back pain, No joint pain Skin: No change in color, No change in hair/nails Psychiatric/Neurological: No Symptoms Reported, See HPI All Other Systems Reviewed Negative Unless Noted: Yes Reviewed Test Results Reviewed Test Results Lab Laboratory Tests Test 08/16/23 11:45 08/16/23 12:50 08/16/23 16:13 08/17/23 04:34 Range/Units White Blood Count 7.6 6.8 4.3-11.0 10^3/uL Red Blood Count 4.31 4.28 L 4.30-5.52 10^6/uL Hemoglobin 13.7 13.2 L 13.3-17.7 g/dL Hematocrit 41 40 40-54 % Mean Corpuscular Volume 95 93 80-99 fL Mean Corpuscular Hemoglobin 32 31 25-34 pg Mean Corpuscular Hemoglobin Concent 34 33 32-36 g/dL Red Cell Distribution Width 12.2 12.4 10.0-14.5 % Platelet Count 141 141 130-400 10^3/uL Mean Platelet Volume 9.8 10.4 9.0-12.2 fL Immature Granulocyte % (Auto) 1 0 % Neutrophils (%) (Auto) 73 57 42-75 % Lymphocytes (%) (Auto) 18 32 12-44 % Monocytes (%) (Auto) 6 7 0-12 % Eosinophils (%) (Auto) 2 3 0-10 % Basophils (%) (Auto) 1 1 0-10 % Neutrophils # (Auto) 5.5 3.9 1.8-7.8 10^3/uL Lymphocytes # (Auto) 1.4 2.2 1.0-4.0 10^3/uL Monocytes # (Auto) 0.5 0.5 0.0-1.0 10^3/uL Eosinophils # (Auto) 0.1 0.2 0.0-0.3 10^3/uL Basophils # (Auto) 0.1 0.1 0.0-0.1 10^3/uL Immature Granulocyte # (Auto) 0.0 0.0 0.0-0.1 10^3/uL Prothrombin Time 14.0 12.2-14.7 SEC INR Comment 1.0 0.8-1.4 Activated Partial Thromboplast Time 29 24-35 SEC Sodium Level 137 138 135-145 MMOL/L Potassium Level 4.1 4.0 3.6-5.0 MMOL/L Chloride Level 103 105 98-107 MMOL/L Carbon Dioxide Level 26 23 21-32 MMOL/L Anion Gap 8 10 5-14 MMOL/L Blood Urea Nitrogen 16 18 7-18 MG/DL Creatinine 0.90 0.77 0.60-1.30 MG/DL Estimat Glomerular Filtration Rate 82 86 BUN/Creatinine Ratio 18 23 Glucose Level 131 H 115 H 70-105 MG/DL Calcium Level 9.4 9.3 8.5-10.1 MG/DL Corrected Calcium 9.6 8.5-10.1 MG/DL Magnesium Level 2.1 1.6-2.4 MG/DL Total Bilirubin 0.4 0.1-1.0 MG/DL Aspartate Amino Transf (AST/SGOT) 17 5-34 U/L Alanine Aminotransferase (ALT/SGPT) 21 0-55 U/L Alkaline Phosphatase 96 40-136 U/L Myoglobin 57.6 10.0-92.0 NG/ML Troponin I < 0.028 < 0.028 <0.028 NG/ML B-Type Natriuretic Peptide 69.0 <100.0 PG/ML Total Protein 6.3 L 6.4-8.2 GM/DL Albumin 3.8 3.2-4.5 GM/DL Lipase 17 8-78 U/L Urine Color YELLOW Urine Clarity CLEAR Urine pH 5.5 5-9 Urine Specific [place] 1.010 L 1.016-1.022 Urine Protein NEGATIVE NEGATIVE Urine Glucose (UA) 3+ H NEGATIVE Urine Ketones NEGATIVE NEGATIVE Urine Nitrite NEGATIVE NEGATIVE Urine Bilirubin NEGATIVE NEGATIVE Urine Urobilinogen 0.2 < = 1.0 MG/DL Urine Leukocyte Esterase NEGATIVE NEGATIVE Urine RBC (Auto) NEGATIVE NEGATIVE Urine RBC NONE /HPF Urine WBC NONE /HPF Urine Squamous Epithelial Cells 2-5 /HPF Urine Crystals NONE /LPF Urine Bacteria NEGATIVE /HPF Urine Casts NONE /LPF Urine Mucus NEGATIVE /LPF Urine Culture Indicated NO Physical Exam Physical Exam Vital Signs Vital Signs - First Documented 08/16/23 11:38 Temp 36.8 Pulse 81 Resp 14 B/P (MAP) 121/56 (77) Pulse Ox 94 O2 Delivery Room Air Capillary Refill : Less Than 3 Seconds Height, Weight, BMI Height: 5'5.00" Weight: 175lbs. 0.0oz. 79.772253ot; 29.05 BMI Method:Stated General Appearance: No Apparent Distress, WD/WN Eyes: Bilateral Eye Normal Inspection, Bilateral Eye PERRL, Bilateral Eye EOMI HEENT: PERRL/EOMI, TMs Normal, Normal ENT Inspection, Pharynx Normal Neck: Full Range of Motion, Normal Inspection, Non Tender, Supple Respiratory: Chest Non Tender, Lungs Clear, Normal Breath Sounds, No Accessory Muscle Use, No Respiratory Distress Cardiovascular: Regular Rate, Rhythm, No Edema, No Gallop, No JVD, No Murmur Gastrointestinal: Normal Bowel Sounds, No Organomegaly, No Pulsatile Mass, Non Tender Back: Normal Inspection, No CVA Tenderness, No Vertebral Tenderness Extremity: Normal Capillary Refill, Normal Inspection, Normal Range of Motion, Non Tender Neurologic/Psychiatric: Alert, Oriented x3, No Motor/Sensory Deficits, Normal Mood/Affect, 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 Coronary artery disease, reporting having 2 stents done in 2005. Stress test in June 2021 with diaphragmatic and intestinal artifact affecting the quality of the images with fixed defect involving the whole inferior wall and inferior apex with no significant reversible distress score 6 SDS 0, ejection fraction 66% 2D echo done in April 2021 with normal LV size, EF 55 to 65%, PA pressure 50 to 20 mmHg. Planning to repeat stress test Permanent pacemaker, dual-chamber, pacer dependent. Atrial paced rhythm. Site appears to be normal. Continue to monitor History of paroxysmal atrial fibrillation/flutter. Status post atrial flutter ablation with Dr. Jones in January 2019. Has been in sinus rhythm, currently in atrial paced rhythm. Continue to monitor [id number] score of 5, yearly risk of stroke without oral anticoagulation is 6.7 percent. I have stopped Eliquis in September 2019, no further dyspnea was noted on his pacemaker interrogation Hypertension, will resume medication poststress test Hyperlipidemia maintained on Lipitor 40 mg daily Evaluate lipid profile Mild pedal edema, taking Lasix. No edema noted at this point Diabetes mellitus, followed and managed by primary care physician. Peripheral neuropathy maintain on gabapentin Nonobstructive carotid artery stenosis per carotid duplex done in November 2022, continue to monitor History of colostomy in 2011 Erectile dysfunction-uses Viagra as needed. Clinical Quality Measures AMI/AHF: ASA po Prior to arrival: NICOLAS Sethi MD Aug 17, 2023 08:18
[2023-08-17] MEDS: ASPIRIN 81 MG CHEWABLE TABLET PO SCH (09:00)
[2023-08-17] MEDS: DOCUSATE SODIUM 100 MG CAPSULE PO SCH ×2 (09:00→20:47)
[2023-08-17] MEDS: PANTOPRAZOLE 40 MG TABLET PO SCH (09:00)
[2023-08-17] MEDS: SENNOSIDES 8.6 MG TABLET PO SCH ×2 (09:00→20:47)
[2023-08-17] MEDS ORDERED: CATHETER FLUSH 10 ML SYR IVP PRN (10:45)
--- NOTE | 2023-08-17 10:59 | History & Physical-Hospitalist ---
History of Present Illness HPI/Chief Complaint Arnie Smalls is an 87 year old male with PMH HTN, T2DM, HLD, CAD, AFib, pacemaker, who presented with chest pain. He describes it as pressure. He was also feeling diaphoretic. He has been feeling fatigued. He also had some shortness of breath. He has not had any further symptoms since his arrival. He has a history of CAD with two stents about ten years ago. Source: patient Exam Limitations: no limitations Date Seen 08/17/23 Time Seen by a Provider: 09:15 Attending Physician Jeff Nicole MD PCP Admitting Physician: Maria D Martinez MD Attending Physician: Maria D Martinez MD Referring Physician Date of Admission Aug 16, 2023 at 13:35 Home Medications & Allergies Home Medications Reviewed patient Home Medication Reconciliation performed by pharmacy medication reconciliations computer operations technician and/or nursing. Patients Allergies have been reviewed. Allergies Allergies Coded Allergies No Known Drug Allergies (Unverified12/24/22) Past Hrvqikz-Cldqnh-Pjhuet Hx Patient Social History Marrital Status: Employed/Student: retired Tobacco Use?: No Smoking Status: Never a Smoker Use of E-Cig and/or Vaping dev: No Substance use?: No Alcohol Use?: No Pt feels they are or have been: No Immunizations Up To Date Date of Influenza Vaccine: Jun 20, 2022 First/Initial COVID19 Vaccinat: 11/13/20 Second COVID19 Vaccination Nam: 12/11/20 Tetanus Booster (TDap): Unknown Hepatitis A: No Hepatitis B: No Date of Pneumonia Vaccine: Nov 11, 2022 Seasonal Allergies Seasonal Allergies: No Current Status Advance Directives: Yes Communicates: Verbally Primary Language: Yakut Preferred Spoken Language: Yakut Sensory deficits: Vision impairment Implanted or Applied Medical D: Pacemaker Past Medical History Surgeries: Appendectomy, Gallbladder COPD Currently Using CPAP: No Currently Using BIPAP: No Atrial Fibrillation, Hypertension, Valvular Heart Disease Sexually Transmitted Disease: No HIV/AIDS: No Gastroesophageal Reflux Arthritis Diabetes, Non-Insulin dep Cataract Loss of Vision: Denies Hearing Impairment: Denies Skin What Type of Treatment Did You: Surgical Intervention Blood Disorders: No Adverse Reaction/Blood Tranf: No Family Medical History DVT 19 MOTHER FH: renal failure 19 FATHER No Pertinent Family Hx Review of Systems Constitutional: diaphoresis, weakness Respiratory: short of breath Cardiovascular: chest pain Gastrointestinal: no symptoms reported Physical Exam Physical Exam Vital Signs Vital Signs - First Documented 08/16/23 11:38 Temp 36.8 Pulse 81 Resp 14 B/P (MAP) 121/56 (77) Pulse Ox 94 O2 Delivery Room Air Capillary Refill : Less Than 3 Seconds Height, Weight, BMI Height: 5'5.00" Weight: 175lbs. 0.0oz. 79.810410im; 29.05 BMI Method:Stated General Appearance: No Apparent Distress, WD/WN HEENT: PERRL/EOMI, Pharynx Normal Neck: Normal Inspection, Supple Respiratory: Lungs Clear, Normal Breath Sounds, No Respiratory Distress Cardiovascular: Regular Rate, Rhythm, No Edema, No Murmur Gastrointestinal: Normal Bowel Sounds, Non Tender, Soft Extremity: Normal Inspection, No Pedal Edema Neurologic/Psychiatric: Alert, Normal Mood/Affect Skin: Normal Color, Warm/Dry Results Results/Procedures Labs Laboratory Tests 08/16/23 11:45 08/17/23 04:34 Patient resulted labs reviewed. Imaging: Reviewed Imaging Report Assessment/Plan Admission Diagnosis Chest pain Admission Status: Observation Assessment and Plan Chest pain CAD HTN HLD T2DM AFib Pacemaker Cardiology consulted Troponin negative EKG unremarkable ASA and Lovenox Planning for Lexiscan Diagnosis/Problems Diagnosis/Problems (1) Chest pain Status: Acute (2) CAD (coronary artery disease) Status: Chronic (3) Essential (primary) hypertension (4) Non-insulin dependent type 2 diabetes mellitus (5) Atrial fibrillation Status: Chronic Clinical Quality Measures AMI/AHF: ASA po Prior to arrival: MARIA D Purvis MD Aug 17, 2023 10:59
[2023-08-17] MEDS ORDERED: REGADENOSON 0.4 MG/5 ML SYR IV ONE ×2 (12:12→12:30)
--- NOTE | 2023-08-17 14:48 | Cardiology Stress Test Report ---
Stress Test Report Date of Procedure/Referring: Date of Procedure: Aug 17, 2023 PCP Jeff Nicole MD Admitting Physician Admitting Physician: Roxi Martinez MD Attending Physician: Roxi Martinez MD Indications: cp Baseline Heart Rate: 60 Baseline Blood Pressure: Blood Pressure Systolic: 157 Blood Pressure Diastolic: 60 Baseline Vitals Vital Signs Date Time Temp Pulse Resp B/P (MAP) Pulse Ox O2 Delivery O2 Flow Rate FiO2 08/16/23 11:38 36.8 81 14 121/56 (77) 94 Room Air Baseline EKG: Baseline EKG: atrial paced rhythm Summary After explaining the procedure to the patient, he signed a consent and then brought to the stress nuclear laboratory. Patient received 0.4 mg Lexiscan for stress test, ECG, heart rate and blood pressure were monitored continuously. Resting and stress dose of radio tracer were injected, imaging was acquired and reviewed in short axis, horizontal long axis and vertical long axis views. TID: 1.22 SSS: 9 SDS: 6 EF: 72 Patient tolerated Lexiscan well Diaphragmatic attenuation with reversible ischemia involving the mid to apical inferior wall and inferolateral wall Normal left ventricular size, ejection fraction 72% Transient ischemic dilatation 1.22 NICOLAS OLSON MD Aug 17, 2023 14:48
[2023-08-17] MEDS ORDERED: CARB200T6 PO ×2 (15:03)
[2023-08-17] MEDS ORDERED: FURO20TA4 PO (15:03)
[2023-08-17] MEDS ORDERED: GLIP5TAB23 PO (15:03)
[2023-08-17] MEDS: NS IV 1000 ML 1,000 ML IV SCH (17:44)
[2023-08-18 00:04] VITALS: BP 175/69
[2023-08-18 02:21] VITALS: BP 170/70
[2023-08-18] MEDS: ENOXAPARIN 80 MG/0.8 ML SYRINGE SC SCH (02:48)
[2023-08-18] MEDS: NS IV 1000 ML 1,000 ML IV SCH (03:25)
[2023-08-18 04:00] VITALS: BP 164/80
[2023-08-18 05:06] LABS: BASOPHILS # (AUTO) 0.1 10^3/uL (0.0-0.1); BASOPHILS % (AUTO) 1 % (0-10); EOSINOPHILS # (AUTO) 0.2 10^3/uL (0.0-0.3); EOSINOPHILS % (AUTO) 3 % (0-10); HEMATOCRIT 40 % (40-54); HEMOGLOBIN 13.4 g/dL (13.3-17.7); LYMPHOCYTES # (AUTO) 1.7 10^3/uL (1.0-4.0); LYMPHOCYTES % (AUTO) 27 % (12-44); MEAN CORPUSCULAR HEMOGLOBIN 32 pg (25-34); MEAN CORPUSCULAR HGB CONC 34 g/dL (32-36); MEAN CORPUSCULAR VOLUME 94 fL (80-99); MEAN PLATELET VOLUME 10.1 fL (9.0-12.2); MONOCYTES # (AUTO) 0.5 10^3/uL (0.0-1.0); MONOCYTES % (AUTO) 8 % (0-12); NEUTROPHILS # (AUTO) 3.9 10^3/uL (1.8-7.8); NEUTROPHILS % (AUTO) 60 % (42-75); PLATELET COUNT 145 10^3/uL (130-400); WHITE BLOOD COUNT 6.4 10^3/uL (4.3-11.0)
[2023-08-18 05:08] LABS: POTASSIUM 3.8 MMOL/L (3.6-5.0)
[2023-08-18 05:10] LABS: CALCIUM 9.1 MG/DL (8.5-10.1)
[2023-08-18 05:14] LABS: CREATININE SERUM 0.71 MG/DL (0.60-1.30)
[2023-08-18] MEDS ORDERED: HEParin (CATH LAB) 2,000 ML IV ONE (07:42)
[2023-08-18] MEDS ORDERED: LIDOCAINE 1% INJ 20 ML VIAL ONE (07:42)
[2023-08-18 07:46] VITALS: BP 165/66
[2023-08-18] MEDS: PANTOPRAZOLE 40 MG TABLET PO SCH (08:28)
[2023-08-18] MEDS: DOCUSATE SODIUM 100 MG CAPSULE PO SCH (08:28)
[2023-08-18] MEDS: ASPIRIN 81 MG CHEWABLE TABLET PO SCH (08:28)
[2023-08-18] MEDS: SENNOSIDES 8.6 MG TABLET PO SCH (08:29)
[2023-08-18] MEDS ORDERED: VERAPAMIL 5 MG/2 ML (CALAN) VIAL IV ONE (10:53)
[2023-08-18] MEDS ORDERED: HEParin 1000 UNIT/ML (10ML VIAL) FOR BOLUS ONE (10:53)
[2023-08-18] MEDS ORDERED: NITRO DRIP 25000 MCG/D5W 250 ML IV ONE (10:53)
[2023-08-18] MEDS ORDERED: MIDAZOLAM INJ 5 MG/5 ML VIAL ONE (10:53)
[2023-08-18] MEDS ORDERED: fentaNYL INJECTION 100 MCG/2 ML VIAL ONE (10:53)
--- NOTE | 2023-08-18 10:55 | Cardiac Procedure Note-CS/ASA ---
Pre-Procedure Note Pre-Op Procedure Note Date of Available H&P: Aug 18, 2023 Date H&P Reviewed: Aug 18, 2023 Time H&P Reviewed: 10:55 History & Physical: H&P Reviewed, Patient Examed, No changes noted Pre-Operative Diagnosis: CAD Moderate Sedation PreProcedure Time 10:55 ASA Score 3 Airway Lungs Heart ASA score ASA 1: a normal healthy patient ASA 2: a patient with a mild systemic disease (mid diabetes, controlled hypertension, obesity ASA 3: a patient with a severe systemic disease that limits activity (angina, COPD, prior Myocardial infarction) ASA 4: a patient with an incapacitating disease that is a constant threat to life (CHF, renal failure) ASA 5: a moribund patient not expected to survive 24 hrs. (ruptured aneurysm) ASA 6: a declared brain- patient whose organs are being harvested. For emergent operations, add the letter E after the classification Mallampati Classification Grade 3 Sedation Plan Analgesia, Amnesia, Plan communicated to team members, Discussed options with patient/fam, Discussed risks with patient/fam The patient is an appropriate candidate to undergo the planned procedure, sedation, and anesthesia. The patient immediately re-assessed prior to indication. NICOLAS OLSON MD Aug 18, 2023 10:55
--- NOTE | 2023-08-18 10:56 | Cardiology Progress Note ---
Subjective Date Seen by Provider: Aug 18, 2023 Time Seen by Provider: 10:55 Subjective/Events-last exam Patient was seen at bedside, laying down comfortably, denied any chest pain Objective-Cardiology Exam Last Set of Vital Signs Vital Signs 08/18/23 08/18/23 07:46 08:00 Temp 36.3 Pulse 61 Resp 17 B/P (MAP) 165/66 (99) Pulse Ox 98 O2 Delivery Room Air I&O Intake and Output 08/18/23 00:00 Intake Total 250 ml Output Total 2050 ml Balance -1800 ml Intake Oral 250 ml Output Urine Total 2050 ml # Bowel Movements 1 General: Alert, Oriented X3, Cooperative HEENT: Atraumatic, PERRLA Neck: Supple, No JVD, No Thyromegaly Lungs: Clear to Auscultation, Normal Air Movement Heart: Regular Rate, Normal S1, Normal S2, No Murmurs Abdomen: Normal Bowel Sounds, Soft, No Tenderness, No Hepatosplenomegaly, No Masses Extremities: No Clubbing, No Cyanosis, No Edema, Normal Pulses, No Tenderness/Swelling Skin: No Rashes, No Breakdown, No Significant Lesion Neuro: Normal Gait, Normal Speech, Strength at 5/5 X4 Ext, Normal Tone, Sensation Intact Psych/Mental Status: Mental Status NL, Mood NL Results Lab Laboratory Tests 08/18/23 04:34 A/P-Cardiology Admission Diagnosis Chest pain Coronary artery disease Chronic atrial fibrillation Hypertension Hyperlipidemia Assessment/Plan Chest pain nonspecific etiology, resembling angina EKG did not show any acute abnormality, cardiac enzymes 2 sets were negative Abnormal stress test with inferior wall ischemia, planning for cardiac catheterization possible PTCA Coronary artery disease, reporting having 2 stents done in 2005. Stress test in June 2021 with diaphragmatic and intestinal artifact affecting the quality of the images with fixed defect involving the whole inferior wall and inferior apex with no significant reversible distress score 6 SDS 0, ejection fraction 66% 2D echo done in April 2021 with normal LV size, EF 55 to 65%, PA pressure 50 to 20 mmHg. Stress test was done on August 17, 2023 with inferior wall ischemia, planning to proceed with cardiac catheterization possible PTCA Permanent pacemaker, dual-chamber, pacer dependent. Atrial paced rhythm. Site appears to be normal. Continue to monitor History of paroxysmal atrial fibrillation/flutter. Status post atrial flutter ablation with Dr. Jones in January 2019. Has been in sinus rhythm, currently in atrial paced rhythm. Continue to monitor [id number] score of 5, yearly risk of stroke without oral anticoagulation is 6.7 percent. I have stopped Eliquis in September 2019, no further dyspnea was noted on his pacemaker interrogation Hypertension, will resume medication poststress test Hyperlipidemia maintained on Lipitor 40 mg daily Evaluate lipid profile Mild pedal edema, taking Lasix. No edema noted at this point Diabetes mellitus, followed and managed by primary care physician. Peripheral neuropathy maintain on gabapentin Nonobstructive carotid artery stenosis per carotid duplex done in November 2022, continue to monitor History of colostomy in 2011 Erectile dysfunction-uses Viagra as needed. NICOLAS OLSON MD Aug 18, 2023 10:56
--- NOTE | 2023-08-18 11:39 | Cardiac Cath Report ---
Cardiac Cath Report Physician (s)/Instrument Repair Technician (s) Physician NICOLAS OLSON MD Pre-Procedure Diagnosis Pre-Procedure Diagnosis: CAD Post-Procedure Note Procedure Start Date: Aug 18, 2023 Name of Procedure: Left heart catheterization, aortic arch angiogram Findings/Procedure Note PROCEDURE NOTE: 87-year-old gentleman with history of coronary artery disease, has been having chest pain, had an abnormal stress test with inferior wall ischemia, cardiac catheterization was advised. After explaining the procedure to the patient, all pros and cons were explained, all questions were answered. The patient signed the consent and then he was placed in the cardiac catheterization laboratory. Groin was prepped in SL fashion local anesthesia was used. Sheath placed in the right radial artery, [place] catheter was advanced to the left ventricular cavity, pressure was measured, pullback LV to aorta was done, engaged the left and right coronary system then I pulled the catheter back to the aortic arch and aortic arch angiogram was done. At the end of the procedure the sheath was removed. Vascular band was used FINDINGS: Hemodynamics LV 117/15, end-diastolic pressure of 15 Aorta 118/62 mean of 86 ANATOMY: Left Main is free of obstructive disease Left Anterior Descending has patent stent with mild disease in the proximal LAD, the LAD is wrapping around the apex and extending to the inferior wall Left Circumflex is moderate in size with patent stent, no obstructive disease, obtuse marginal branch appears to be occluded at the ostium not receiving any collaterals Right Coronary Artery is nondominant artery with no obstructive disease LV Gram was not done, pressure was measured Aorta evaluation done with aortic arch angiogram showing normal aortic arch, no dissection or aneurysm, normal origin of the great vessels of the neck including the brachiocephalic artery, left carotid and left subclavian arteries CONCLUSION: Patent stent in the mid LAD and circumflex artery, nonobstructive disease Questionable occluded obtuse marginal branch, not receiving any collaterals, 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
[2023-08-18] MEDS ORDERED: NS IV 1000 ML 1,000 ML IV SCH (11:45)
[2023-08-18 12:00] VITALS: BP 160/62
--- NOTE | 2023-08-18 16:17 | Discharge Summary ---
Discharge Summary Hospital Course Problems/Dx: (1) Chest pain Status: Acute (2) CAD (coronary artery disease) Status: Chronic (3) Essential (primary) hypertension (4) Non-insulin dependent type 2 diabetes mellitus (5) Atrial fibrillation Status: Chronic Hospital Course Date of Admission: Aug 16, 2023 at 13:35 Admission Diagnosis: Chest pain Family Physician/Provider: Jeff Nicole MD Date of Discharge: 08/18/23 Discharge Diagnosis: Chest pain, CAD Hospital Course: Arnie Smalls is an 87 year old male with PMH HTN, T2DM, HLD, AFib, pacemaker, CAD s/p coronary artery stents, who was admitted with chest pain. Cardiology was consulted and assisted with his care. He underwent a Lexiscan stress test which revealed an area of reversible ischemia. He then underwent left heart cath which showed no evidence of coronary artery disease amenable to intervention. His symptoms completely resolved. He was discharged home in stable condition. He should follow up with his PCP and Cardiology as scheduled. Labs and Pending Lab Test: Laboratory Tests 08/18/23 04:34: White Blood Count 6.4, Red Blood Count 4.21L, Hemoglobin 13.4, Hematocrit 40, Mean Corpuscular Volume 94, Mean Corpuscular Hemoglobin 32, Mean Corpuscular Hemoglobin Concent 34, Red Cell Distribution Width 12.4, Platelet Count 145, Mean Platelet Volume 10.1, Immature Granulocyte % (Auto) 1, Neutrophils (%) (Auto) 60, Lymphocytes (%) (Auto) 27, Monocytes (%) (Auto) 8, Eosinophils (%) (Auto) 3, Basophils (%) (Auto) 1, Neutrophils # (Auto) 3.9, Lymphocytes # (Auto) 1.7, Monocytes # (Auto) 0.5, Eosinophils # (Auto) 0.2, Basophils # (Auto) 0.1, Immature Granulocyte # (Auto) 0.0, Percent Immature Platelet Fraction 2.8, Sodium Level 137, Potassium Level 3.8, Chloride Level 106, Carbon Dioxide Level 21, Anion Gap 10, Blood Urea Nitrogen 14, Creatinine 0.71, Estimat Glomerular Filtration Rate 88, BUN/Creatinine Ratio 20, Glucose Level 109H, Calcium Level 9.1 Home Meds Active Reported Carbamazepine 200 Mg Tablet 200 Mg PO HS PRN Carbamazepine 200 Mg Tablet 200 Mg PO DAILY Furosemide 20 Mg Tablet 20 Mg PO DAILY Glipizide 5 Mg Tablet 5 Mg PO DAILY Jardiance (Empagliflozin) 25 Mg Tablet 25 Mg PO DAILY Oxybutynin Chloride ER (Oxybutynin Chloride) 5 Mg Tab.er.24 5 Mg PO DAILY Terazosin HCl 5 Mg Capsule 5 Mg PO BID Enalapril Maleate 10 Mg Tablet 10 Mg PO DAILY Atenolol 100 Mg Tablet 100 Mg PO DAILY Finasteride 5 Mg Tablet 5 Mg PO DAILY Tylenol Extra Strength (Acetaminophen) 500 Mg Tablet 500-1,000 Mg PO Q4H PRN Atorvastatin Calcium 80 Mg Tablet 40 Mg PO HS TAKES 1/2 (80MG) TABLET Digoxin 125 Mcg Tablet 125 Mcg PO DAILY Assessment/Pt Instructions see instructions Discharge Planning: >30 minutes discharge planning Discharge Instructions Discharge Diet: Low Sodium Diet Activity as Tolerated: Yes Consultations Cardiology Discharge Physical Examination Vital Signs Vital Signs Date Time Temp Pulse Resp B/P (MAP) Pulse Ox O2 Delivery O2 Flow Rate FiO2 08/18/23 12:49 64 08/18/23 12:00 36.5 20 160/62 (94) 95 Room Air General Appearance: No Apparent Distress, WD/WN Respiratory: Lungs Clear, No Respiratory Distress Cardiovascular: Regular Rate, Rhythm, No Murmur Gastrointestinal: Normal Bowel Sounds, Soft Extremity: Normal Inspection, No Pedal Edema Skin: Normal Color, Warm/Dry Neurologic/Psychiatric: Alert, Normal Mood/Affect Allergies: Coded Allergies: No Known Drug Allergies (Unverified , 12/24/22) Copy Copies To 1: JEFF NICOLE MD Discharge Summary Date of Admission Aug 16, 2023 at 13:35 Date of Discharge Discharge Date: Aug 18, 2023 Discharge Time: 1330 Admission Diagnosis Chest pain Consults/Procedures Consulations Cardiology Procedures Stress test, left heart cath Discharge Diagnosis Chest pain CAD HTN HLD T2DM AFib Pacemaker (1) Chest pain Status: Acute (2) CAD (coronary artery disease) Status: Chronic (3) Essential (primary) hypertension (4) Non-insulin dependent type 2 diabetes mellitus (5) Atrial fibrillation Status: Chronic Clinical Quality Measures AMI/AHF: ASA po Prior to arrival: MARIA D Purvis MD Aug 18, 2023 16:16
== END 2023-08-18 16:00 | disposition home or self-care (01) ==
LOC: EDUNIT# 11:33 → ER 11:36 → CSD 13:35 → EDLOC 13:35 → INTOOBSV 13:35
PROVIDERS: ADMIT Internal Medicine; ATTEND Internal Medicine
DX: I25.10 Atherosclerotic heart disease of native coronary artery without angina pectoris (principal); I10 Essential (primary) hypertension; E11.9 Type 2 diabetes mellitus without complications; I48.91 Unspecified atrial fibrillation; E78.5 Hyperlipidemia, unspecified; Z79.84 Long term (current) use of oral hypoglycemic drugs; Z79.899 Other long term (current) drug therapy; Z95.5 Presence of coronary angioplasty implant and graft
CPT/HCPCS: 36221; 71045; 78452; 80048 ×2; 80053; 81000; 83690; 83735; 83874; 83880; 84484; 85025 ×3; 85610; 85730; 93005; 93017; 93041; 93458; 96372 ×3; 99284; A9502; C1894; G0378; 36415

== ENCOUNTER 2023-09-01 07:06 | Emergency (ER) | payer MEDICARE ==
[~2023-09-01] VITALS: Ht 165 cm; Wt 66.6 kg
[~2023-09-01 07:06] MED LIST changes: +CARB200T6 PO; +GLIP5TAB23 PO
[2023-09-01 07:27] LABS: BASOPHILS % (AUTO) 1 % (0-10); EOSINOPHILS # (AUTO) 0.2 10^3/uL (0.0-0.3); EOSINOPHILS % (AUTO) 2 % (0-10); HEMATOCRIT 42 % (40-54); HEMOGLOBIN 14.2 g/dL (13.3-17.7); LYMPHOCYTES # (AUTO) 1.3 10^3/uL (1.0-4.0); LYMPHOCYTES % (AUTO) 20 % (12-44); MEAN CORPUSCULAR HEMOGLOBIN 32 pg (25-34); MEAN CORPUSCULAR HGB CONC 34 g/dL (32-36); MEAN CORPUSCULAR VOLUME 95 fL (80-99); MEAN PLATELET VOLUME 10.3 fL (9.0-12.2); MONOCYTES # (AUTO) 0.5 10^3/uL (0.0-1.0); MONOCYTES % (AUTO) 7 % (0-12); NEUTROPHILS # (AUTO) 4.6 10^3/uL (1.8-7.8); NEUTROPHILS % (AUTO) 70 % (42-75); PLATELET COUNT 142 10^3/uL (130-400); WHITE BLOOD COUNT 6.6 10^3/uL (4.3-11.0)
[2023-09-01] MEDS ORDERED: NITROGLYCERIN 2% OINT 1 GM UNIT DOSE PACKET TOP ONE (07:30)
[2023-09-01 07:33] LABS: ALBUMIN 3.6 GM/DL (3.2-4.5)
[2023-09-01 07:34] LABS: CHLORIDE 105 MMOL/L (98-107); PROTHROMBIN TIME PATIENT 13.9 SEC (12.2-14.7); SODIUM 139 MMOL/L (135-145)
[2023-09-01 07:35] LABS: CALCIUM 9.1 MG/DL (8.5-10.1)
[2023-09-01 07:36] LABS: GLUCOSE 136 MG/DL (70-105); TOTAL PROTEIN 5.9 GM/DL (6.4-8.2)
[2023-09-01 07:37] LABS: CARBON DIOXIDE 26 MMOL/L (21-32)
[2023-09-01 07:38] LABS: BILIRUBIN,TOTAL 0.6 MG/DL (0.1-1.0)
[2023-09-01 07:39] LABS: ALKALINE PHOSPHATASE 80 U/L (40-136)
[2023-09-01 07:40] LABS: CREATININE SERUM 0.75 MG/DL (0.60-1.30); GFR ESTIMATED 86
[2023-09-01 07:41] LABS: BUN/CREATININE RATIO 19
[2023-09-01 07:43] LABS: ALANINE AMINOTRANSFERASE 23 U/L (0-55); MAGNESIUM 2.3 MG/DL (1.6-2.4)
--- NOTE | 2023-09-01 07:50 | ED Chest Pain ---
General Chief Complaint: Chest Pain Stated Complaint: WEAKNESS | CHEST PRESSURE Nursing Triage Note: PT PRESENTS TO ED WITH COMPLAINTS OF WEAKNESS, CHEST PRESSURE, AND SOB SINCE 1900 LAST NIGHT. EMS REPORTS GIVING ASA/NITRO IN ROUTE. PT REPORTS HE HAD STENTS PLACED A COUPLE OF WEEKS AGO. Source: patient Exam Limitations: no limitations History of Present Illness Date Seen by Provider: Sep 01, 2023 Time Seen by Provider: 07:09 Initial Comments This 87-year-old gentleman presents to the emergency room via EMS with complaints of chest pain that started last night. He has had associated shortness of breath and disequilibrium. He reports having to use a cane for the past several months due to balance issues. He reported the chest pain improved from 5/10 down to 2/10 after EMS administered nitroglycerin. EMS also gave aspirin. He has not yet taken his morning medications. He has history of coronary artery disease, atrial fibrillation, hypertension, and pacemaker placement. He was admitted to this facility August 16 through . He had a positive stress test followed up by heart cath. Chronic disease findings were noted without any disease amenable to interventions. He was discharged home with medical management. He reports living alone and having difficulty getting by on his own. He has difficulty with meals. His punch machine hand is Dr. Gillespie. His primary care provider is Dr. Jeff Nicole. Allergies and Home Medications Allergies Coded Allergies: No Known Drug Allergies (Unverified , 12/24/22) Patient Home Medication List Home Medication List Reviewed: Yes Acetaminophen (Tylenol Extra Strength) 500 Mg Tablet, 500-1,000 MG PO Q4H PRN for PAIN-MILD, (Reported) Entered as Reported by: SAMUEL DANIEL on 01/06/17 1022 Atenolol (Atenolol) 100 Mg Tablet, 100 MG PO DAILY, (Reported) Entered as Reported by: SAMUEL DANIEL on 07/21/18 1630 Atorvastatin Calcium (Atorvastatin Calcium) 80 Mg Tablet, 40 MG PO HS, (Reported) Entered as Reported by: SAMUEL DANIEL on 01/06/17 1018 Carbamazepine (Carbamazepine) 200 Mg Tablet, 200 MG PO DAILY, (Reported) Entered as Reported by: RICHIE TAYLOR on 08/17/23 1503 Carbamazepine (Carbamazepine) 200 Mg Tablet, 200 MG PO HS PRN for NERVE PAIN, (Reported) Entered as Reported by: RICHIE TAYLOR on 08/17/23 1503 Digoxin (Digoxin) 125 Mcg Tablet, 125 MCG PO DAILY, (Reported) Entered as Reported by: SAMUEL DANIEL on 01/06/17 1018 Empagliflozin (Jardiance) 25 Mg Tablet, 25 MG PO DAILY, (Reported) Entered as Reported by: Gabbie Lopez on 12/16/22 1515 Enalapril Maleate (Enalapril Maleate) 10 Mg Tablet, 10 MG PO DAILY, (Reported) Entered as Reported by: SAMUEL DANIEL on 07/21/18 1630 Finasteride (Finasteride) 5 Mg Tablet, 5 MG PO DAILY, (Reported) Entered as Reported by: SAMUEL DANIEL on 07/21/18 1622 Furosemide (Furosemide) 20 Mg Tablet, 20 MG PO DAILY, (Reported) Entered as Reported by: RICHIE TAYLOR on 08/17/23 1503 Glipizide (Glipizide) 5 Mg Tablet, 5 MG PO DAILY, (Reported) Entered as Reported by: RICHIE TAYLOR on 08/17/23 1503 Oxybutynin Chloride (Oxybutynin Chloride ER) 5 Mg Tab.er.24, 5 MG PO DAILY, (Reported) Entered as Reported by: SAMUEL DANIEL on 07/21/18 1630 Terazosin HCl (Terazosin HCl) 5 Mg Capsule, 5 MG PO BID, (Reported) Entered as Reported by: SAMUEL DANIEL on 07/21/18 1630 Review of Systems Review of Systems Constitutional: see HPI, weakness EENTM: No Symptoms Reported Respiratory: See HPI Cardiovascular: See HPI Gastrointestinal: No Symptoms Reported Genitourinary: No Symptoms Reported Musculoskeletal: no symptoms reported Skin: no symptoms reported Psychiatric/Neurological: No Symptoms Reported Endocrine: No Symptoms Reported Hematologic/Lymphatic: No Symptoms Reported Past Semlbnp-Eeqizy-Dtahts Hx Patient Social History Tobacco Use?: No Substance use?: No Alcohol Use?: No Pt feels they are or have been: No Immunizations Up To Date Tetanus Booster (TDap): Less than 5yrs First/Initial COVID19 Vaccinat: 11/13/20 Second COVID19 Vaccination Nam: 12/11/20 Third COVID19 Vaccination Date: 09/08/21 Seasonal Allergies Seasonal Allergies: No Past Medical History Surgery/Hospitalization HX: colostomy, stents, pacer, appy, heart cath htn Surgeries: Yes (colon, cataracts removed) Abdominal (Colostomy), Appendectomy, Coronary Stent, Gallbladder, Pacemaker Respiratory: Yes COPD Currently Using CPAP: No Currently Using BIPAP: No Cardiac: Yes (Pacemaker) Atrial Fibrillation, Coronary Artery Disease, Hypertension, Valvular Heart Disease Neurological: No Reproductive Disorders: No Sexually Transmitted Disease: No HIV/AIDS: No Genitourinary: No Gastrointestinal: Yes Gastroesophageal Reflux Musculoskeletal: Yes Arthritis Endocrine: Yes Diabetes, Non-Insulin dep HEENT: Yes Cataract Loss of Vision: Denies Hearing Impairment: Denies Cancer: Yes Skin What Type of Treatment Did You: Surgical Intervention Psychosocial: No Integumentary: No Blood Disorders: No Adverse Reaction/Blood Tranf: No Family Medical History DVT 19 MOTHER FH: renal failure 19 FATHER No Pertinent Family Hx Physical Exam Vital Signs Vital Signs - First Documented 09/01/23 09/01/23 07:10 13:46 Temp 36.4 Pulse 90 Resp 18 B/P (MAP) 169/92 (117) Pulse Ox 95 O2 Delivery Room Air Capillary Refill : Less Than 3 Seconds Height, Weight, BMI Height: 5'5.00" Weight: 175lbs. 0.0oz. 79.083633ul; 24.00 BMI Method:Stated General Appearance: No Apparent Distress, WD/WN HEENT: PERRL/EOMI, Normal ENT Inspection Neck: Normal Inspection; No JVD Respiratory: Chest Non Tender, Lungs Clear, Normal Breath Sounds, No Accessory Muscle Use, No Respiratory Distress Cardiovascular: Regular Rate, Rhythm, No Edema, No Murmur Gastrointestinal: Normal Bowel Sounds, Soft, Tenderness (Slight, generalized) Extremity: Normal Inspection, No Pedal Edema Neurologic/Psychiatric: Alert, Oriented x3, No Motor/Sensory Deficits, Normal Mood/Affect Skin: Normal Color, Warm/Dry Progress/Results/Core Measures Results/Orders Lab Results Laboratory Tests Test 09/01/23 07:15 09/01/23 08:09 09/01/23 09:30 09/01/23 10:34 Range/Units White Blood Count 6.6 4.3-11.0 10^3/uL Red Blood Count 4.44 4.30-5.52 10^6/uL Hemoglobin 14.2 13.3-17.7 g/dL Hematocrit 42 40-54 % Mean Corpuscular Volume 95 80-99 fL Mean Corpuscular Hemoglobin 32 25-34 pg Mean Corpuscular Hemoglobin Concent 34 32-36 g/dL Red Cell Distribution Width 12.1 10.0-14.5 % Platelet Count 142 130-400 10^3/uL Mean Platelet Volume 10.3 9.0-12.2 fL Immature Granulocyte % (Auto) 0 % Neutrophils (%) (Auto) 70 42-75 % Lymphocytes (%) (Auto) 20 12-44 % Monocytes (%) (Auto) 7 0-12 % Eosinophils (%) (Auto) 2 0-10 % Basophils (%) (Auto) 1 0-10 % Neutrophils # (Auto) 4.6 1.8-7.8 10^3/uL Lymphocytes # (Auto) 1.3 1.0-4.0 10^3/uL Monocytes # (Auto) 0.5 0.0-1.0 10^3/uL Eosinophils # (Auto) 0.2 0.0-0.3 10^3/uL Basophils # (Auto) 0.0 0.0-0.1 10^3/uL Immature Granulocyte # (Auto) 0.0 0.0-0.1 10^3/uL Prothrombin Time 13.9 12.2-14.7 SEC INR Comment 1.0 0.8-1.4 Activated Partial Thromboplast Time 28 24-35 SEC D-Dimer 0.84 H 0.00-0.49 UG/ML Sodium Level 139 135-145 MMOL/L Potassium Level 4.0 3.6-5.0 MMOL/L Chloride Level 105 98-107 MMOL/L Carbon Dioxide Level 26 21-32 MMOL/L Anion Gap 8 5-14 MMOL/L Blood Urea Nitrogen 14 7-18 MG/DL Creatinine 0.75 0.60-1.30 MG/DL Estimat Glomerular Filtration Rate 86 BUN/Creatinine Ratio 19 Glucose Level 136 H 70-105 MG/DL Calcium Level 9.1 8.5-10.1 MG/DL Corrected Calcium 9.4 8.5-10.1 MG/DL Magnesium Level 2.3 1.6-2.4 MG/DL Total Bilirubin 0.6 0.1-1.0 MG/DL Aspartate Amino Transf (AST/SGOT) 17 5-34 U/L Alanine Aminotransferase (ALT/SGPT) 23 0-55 U/L Alkaline Phosphatase 80 40-136 U/L Myoglobin 34.9 10.0-92.0 NG/ML Troponin I < 0.028 < 0.028 <0.028 NG/ML C-Reactive Protein High Sensitivity 0.08 0.00-0.50 MG/DL B-Type Natriuretic Peptide 97.2 <100.0 PG/ML Total Protein 5.9 L 6.4-8.2 GM/DL Albumin 3.6 3.2-4.5 GM/DL Influenza Type A (RT-PCR) Not Detected Not Detecte Influenza Type B (RT-PCR) Not Detected Not Detecte SARS-CoV-2 RNA (RT-PCR) Not Detected Not Detecte Urine Color YELLOW Urine Clarity CLEAR Urine pH 7.0 5-9 Urine Specific [place] 1.010 L 1.016-1.022 Urine Protein 3+ H NEGATIVE Urine Glucose (UA) 3+ H NEGATIVE Urine Ketones NEGATIVE NEGATIVE Urine Nitrite NEGATIVE NEGATIVE Urine Bilirubin NEGATIVE NEGATIVE Urine Urobilinogen 0.2 < = 1.0 MG/DL Urine Leukocyte Esterase NEGATIVE NEGATIVE Urine RBC (Auto) TRACE H NEGATIVE Urine RBC 0-2 /HPF Urine WBC 0-2 /HPF Urine Squamous Epithelial Cells 2-5 /HPF Urine Crystals NONE /LPF Urine Bacteria TRACE /HPF Urine Casts NONE /LPF Urine Mucus NEGATIVE /LPF Urine Culture Indicated NO My Orders Orders - EVELYN SCHMITT MD Cbc And Automated Diff (09/01/23 07:09) Magnesium (09/01/23 07:09) Chest 1 View, Ap/Pa Only (09/01/23 07:09) Ekg Tracing (09/01/23 07:09) Comprehensive Metabolic Panel (09/01/23 07:09) Myoglobin Serum (09/01/23 07:09) Protime With Inr (09/01/23 07:09) Partial Thromboplastin Time (09/01/23 07:09) O2 (09/01/23 07:09) Monitor-Rhythm Ecg Trace Only (09/01/23 07:09) Ed Iv/Invasive Line Start (09/01/23 07:09) Troponin I [place] (09/01/23 07:09) Covid 19 Inhouse Test (09/01/23 07:26) Influenza A And B By Pcr (09/01/23 07:26) Bnp [place] (09/01/23 07:26) Hs C Reactive Protein (09/01/23 07:26) Ua Culture If Indicated (09/01/23 07:26) Nitroglycerin Ointment (Nitroglycerin (09/01/23 07:30) Fibrin Degradation Products (09/01/23 07:54) Ct Angio Chest W (R/O Pe) (09/01/23 08:23) Ns Iv 500 Ml (Ns Iv 500 Ml) (09/01/23 08:30) Troponin I [place] (09/01/23 09:15) Iohexol Injection (Omnipaque 350 Mg/Ml 1 (09/01/23 08:30) Received Contrast (Hold Metformin- Contr (09/01/23 08:30) Ns (Ivpb) 100 Ml (Sodium Chloride 0.9% 1 (09/01/23 08:30) Ns Iv 500 Ml (Ns Iv 500 Ml) (09/01/23 10:30) Medications Given in ED Current Medications Medications Dose Ordered Sig/Rich Route Start Time Stop Time Status Last Admin Dose Admin Iohexol 100 ml ONCE ONCE IV 09/01/23 08:30 09/01/23 08:31 DC 09/01/23 09:00 63 ML Sodium Chloride 100 ml ONCE ONCE IV 09/01/23 08:30 09/01/23 08:31 DC 09/01/23 09:00 80 ML Sodium Chloride 500 ml @ 0 mls/hr Q0M ONCE IV 09/01/23 08:30 09/01/23 08:31 DC 09/01/23 08:34 0 MLS/HR Sodium Chloride 500 ml @ 0 mls/hr Q0M ONCE IV 09/01/23 10:30 09/01/23 10:31 DC 09/01/23 10:44 0 MLS/HR Vital Signs/I&O 09/01/23 09/01/23 09/01/23 07:10 10:37 13:46 Temp 36.4 36.0 Pulse 90 74 65 84 92 Resp 18 16 B/P (MAP) 169/92 (117) 151/82 (105) 133/62 139/72 (94) 138/68 (91) Pulse Ox 95 94 O2 Delivery Room Air Blood Pressure Mean: 117 Progress Progress Note #1: Time: 07:59 Progress Note Patient was interviewed and examined shortly after arrival. EKG was reviewed and demonstrated paced rhythm with no ischemic changes as noted in my interpretation below. Labs have been reviewed and interpreted by me. CBC, CMP, CRP, BNP, troponin, magnesium were all normal. Glucose was slightly elevated at 136. D-dimer has been added for further evaluation. Patient's pain was rebounding up to 5/10. 1/2 inch of Nitropaste was administered. This should give him a more subtle treatment as the nitroglycerin pill administered by EMS caused a drastic drop in blood pressure. Urinalysis and COVID-19 testing are pending at this time. If admission is necessary, patient indicated he is willing to go to a residential. Progress Note #2: Progress Note CATH REPORT FROM 08/16/23 NAME: ROSANNE CHAKRABORTY [facility] REC#: [id number] : 1935 ADMIT DATE: 08/16/23 ADD'T CARE PROVIDER: NICOLAS GILLESPIE MD CARE PROVIDER: NICOLAS GILLESPIE MD PROCEDURE REPORT Cardiac Cath Report Physician (s)/It Software Engineer (s) Physician NICOLAS GILLESPIE MD Pre-Procedure Diagnosis Pre-Procedure Diagnosis: CAD Post-Procedure Note Procedure Start Date: Aug 18, 2023 Name of Procedure: Left heart catheterization, aortic arch angiogram Findings/Procedure Note PROCEDURE NOTE: 87-year-old gentleman with history of coronary artery disease, has been having chest pain, had an abnormal stress test with inferior wall ischemia, cardiac catheterization was advised. After explaining the procedure to the patient, all pros and cons were explained, all questions were answered. The patient signed the consent and then he was placed in the cardiac catheterization laboratory. Groin was prepped in SL fashion local anesthesia was used. Sheath placed in the right radial artery, [place] catheter was advanced to the left ventricular cavity, pressure was measured, pullback LV to aorta was done, engaged the left and right coronary system then I pulled the catheter back to the aortic arch and aortic arch angiogram was done. At the end of the procedure the sheath was removed. Vascular band was used FINDINGS: Hemodynamics LV 117/15, end-diastolic pressure of 15 Aorta 118/62 mean of 86 ANATOMY: Left Main is free of obstructive disease Left Anterior Descending has patent stent with mild disease in the proximal LAD, the LAD is wrapping around the apex and extending to the inferior wall Left Circumflex is moderate in size with patent stent, no obstructive disease, obtuse marginal branch appears to be occluded at the ostium not receiving any c ollaterals Right Coronary Artery is nondominant artery with no obstructive disease LV Gram was not done, pressure was measured Aorta evaluation done with aortic arch angiogram showing normal aortic arch, no dissection or aneurysm, normal origin of the great vessels of the neck including the brachiocephalic artery, left carotid and left subclavian arteries CONCLUSION: Patent stent in the mid LAD and circumflex artery, nonobstructive disease Questionable occluded obtuse marginal branch, not receiving any collaterals, 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, nonobstructive disease Normal left ventricular end-diastolic pressure Normal aortic arch and great vessels of the neck DISCUSSION AND RECOMMENDATION: Continue with medical therapy, no intervention is needed Anesthesia Type: Conscious Sedation Estimated blood loss (mL): 10 ml Contrast Amount: 40 ml Total Radiation Dose: 351 mGy Post-Procedure Diagnosis Post-operative diagnosis: Chest pain Coronary artery disease Hypertension Hyperlipidemia NICOLAS GILLESPIE MD Aug 18, 2023 11:39 [id number] <Created by NICOLAS GILLESPIE MD> <Electronically signed by NICOLAS GILLESPIE MD> 08/18/23 1606 Progress Note #3: Time: 08:27 Progress Note Chest pain resolved with nitroglycerin paste. Patient is presently denying any chest pain. D-dimer was mildly elevated at 0.84. CT angiogram is pending. R enal function is normal, but we will give a 500 mL normal saline bolus to help with renal prophylaxis after the CT angiogram. Influenza and COVID-19 test is still pending. Urinalysis is pending. A 2-hour troponin will also be obtained at 0915. Chest x-ray was viewed by me and I appreciated no acute abnormalities. Radiologist's report was also reviewed as below. Progress Note #4: Time: 09:[address] angiogram of the chest was viewed by me. There were no acute abnormalities by my interpretation. Radiologist's report was also reviewed as noted below. Repeat troponin is pending at this time. Flu and COVID test were negative. Urinalysis is pending. Progress Note #5: Time: 11:12 Progress Note Patient has experienced no further chest pain. He is not experiencing any chest pain now. His repeat troponin was negative and urinalysis demonstrated no significant abnormalities by my interpretation. Orthostatic blood pressures were unremarkable. Patient still has his half inch of Nitropaste on. I will administer his usual morning medications which he brought with him and we can then remove the Nitropaste. Patient now has a primary concern of placement in a nursing facility. He does not believe it is safe for him to live on his own. That seems to be his primary focus at this time. I will have acute rehab assess him. Perhaps he can be admitted to acute rehab for disequilibrium and weakness and then transition into a care facility. Progress Note #6: Time: 11:14 Progress Note Acute Rehab Unit was contacted. Unfortunately, they have no bed availability at this time. I will have social work visit with the patient and his power of deputy attorney general. Progress Note #7: Progress Note Since acute rehab unit is full and patient does not meet any admission criteria, I was unfortunately not able to assist him with placement in a long-term care facility. Social work did provide resources and instructions on how to proceed. I did call Dr. Nicole's office and they gave him a tentative appointment for Wednesday to discuss these issues. Patient was ultimately discharged home with instructions for close follow-up and return precautions. I also discussed the patient's situation with Dr. Gillespie, his primary punch machine hand. I inquired about using a long-acting nitroglycerin since his pain did improve with use of nitroglycerin in the ER. He advised to wait until follow-up in the clinic rather than adding another prescription at this time. See discharge instructions for further discussion. Initial ECG Impression Date: Sep 01, 2023 Initial ECG Impression Time: 07:16 Initial ECG Rate: 75 Comment Atrial paced rhythm at a rate of [address] elevation or depression. No significant abnormal intervals or axis deviation. Diagnostic Imaging Diagonstic Imaging: Xray Plain Films/CT/US/NM/MRI: chest Comments NAME: ROSANNE CHAKRABORTY MED REC#: [id number] PT STATUS: REG ER : 1935 PHYSICIAN: EVELYN SCHMITT MD ADMIT DATE: 09/01/23/ER Signed Date of Exam:09/01/23 CHEST 1 VIEW, AP/PA ONLY Indication: Chest pressure shortness of breath Portable chest 7:53 AM There is a dual-chamber pacemaker. Heart size and pulmonary vascularity are normal. Lungs are clear. There are no effusions or pneumothoraces. IMPRESSION: No acute abnormalities in the chest Dictated by: Dictated on workstation # [id number] Dict: 09/01/23819 Trans: 09/01/23820 [facility] [id number] Interpreted by: KT WARNER MD Electronically signed by: KT WARNER MD 09/01/23820 Diagonstic Imaging: CT Plain Films/CT/US/NM/MRI: chest Comments NAME: ROSANNE CHAKRABORTY [facility] REC#: [id number] PT STATUS: REG ER : 1935 PHYSICIAN: EVELYN SCHMITT MD ADMIT DATE: 09/01/23/ER Draft Date of Exam:09/01/23 CT ANGIO CHEST W (R/O PE) INDICATION: Chest pain and elevated d-dimer There is good opacification of pulmonary embolism. There is no evidence of filling defect. Thoracic aorta is of normal caliber with mild atherosclerotic calcification. Coronary artery calcifications are also noted. There is no significant pleural or pericardial fluid. Focal irregular patchy density in the inferior lingula is likely due to scarring. Occasional mildly prominent mediastinal lymph nodes are noted without evidence of pathologically enlarged adenopathy. Gallbladder surgically absent. IMPRESSION: No CTA evidence of pulmonary embolism or other acute abnormality in the thorax. Dictated on workstation # [id number] Dict: 09/01/23899 Trans: 09/01/23911 [facility] [id number] Interpreted by: GABRIEL NICHOLS MD Departure Impression Primary Impression: Chest pain Qualified Codes: R07.9 - Chest pain, unspecified Additional Impressions: History of coronary artery disease Generalized weakness Advanced age Disequilibrium Lives alone without help available Disposition: 01 HOME, SELF-CARE Condition: Improved Departure-Patient Inst. Decision time for Depature: 13:12 Referrals: JEFF NICOLE MD (PCP/Family) Primary Care Physician Patient Instructions: Chest Pain, Adult ED Add. Discharge Instructions: Please follow-up with Dr. Nicole and Dr. Gillespie as soon as possible. Please call today to make an appointment. A tentative appointment has been made for you at Dr. Nicole's office for September 07 at 11:15 AM. In the meantime, continue medications as previously directed. Always get up and walk very carefully and use a walker or cane for assistance. Return to the ER if you have worsening symptoms in the meantime that require urgent attention. All discharge instructions reviewed with patient and/or family. Voiced understanding. Copy Copies To 1: NICOLAS GILLESPIE MD Copies To 2: JEFF NICOLE MD, JOSHUA T MD Sep 01, 2023 07:49
--- NOTE | 2023-09-01 08:23 | Diagnostic Imaging Report ---
Indication: Chest pressure shortness of breath Portable chest 7:53 AM There is a dual-chamber pacemaker. Heart size and pulmonary vascularity are normal. Lungs are clear. There are no effusions or pneumothoraces. IMPRESSION: No acute abnormalities in the chest Dictated by: Dictated on workstation # [id number]
[2023-09-01] MEDS ORDERED: IOHEXOL 350 MG/ML 100 ML (OMNIPAQUE 350) VIAL IV ONE (08:30)
[2023-09-01] MEDS ORDERED: HOLD METFORMIN - RECEIVED CONTRAST 20 ML VIAL IV SCH (08:30)
[2023-09-01] MEDS ORDERED: NS IV 500 ML 500 ML IV ONE ×2 (08:30→10:30)
[2023-09-01] MEDS ORDERED: NS 100 ML (IVPB) BAG IV ONE (08:30)
--- NOTE | 2023-09-01 09:13 | Diagnostic Imaging Report ---
INDICATION: Chest pain and elevated d-dimer There is good opacification of pulmonary embolism. There is no evidence of filling defect. Thoracic aorta is of normal caliber with mild atherosclerotic calcification. Coronary artery calcifications are also noted. There is no significant pleural or pericardial fluid. Focal irregular patchy density in the inferior lingula is likely due to scarring. Occasional mildly prominent mediastinal lymph nodes are noted without evidence of pathologically enlarged adenopathy. Gallbladder surgically absent. IMPRESSION: No CTA evidence of pulmonary embolism or other acute abnormality in the thorax. Dictated by: Dictated on workstation # [id number]
[2023-09-01 10:37] VITALS: BP_SYST 138; BP_SYST 139; BP_SYST 151; BP_DIAS 68; BP_DIAS 72; BP_DIAS 82
[2023-09-01 10:47] LABS: CLARITY,URINE CLEAR; COLOR,URINE YELLOW; PROTEIN,URINE 3+ (NEGATIVE)
[2023-09-01 10:48] LABS: BACTERIA,URINE TRACE /HPF; BILIRUBIN,URINE NEGATIVE (NEGATIVE); GLUCOSE, URINE (UA) 3+ (NEGATIVE); KETONES,URINE NEGATIVE (NEGATIVE); LEUKOCYTE ESTERASE ,URINE NEGATIVE (NEGATIVE); NITRITE,URINE NEGATIVE (NEGATIVE); RBC,URINE 0-2 /HPF; WBC,URINE 0-2 /HPF
[2023-09-01 13:46] VITALS: BP 133/62
== END 2023-09-01 13:50 | disposition home or self-care (01) ==
LOC: EDUNIT# 07:06 → ER 07:08
DX: R07.89 Other chest pain (principal); R53.1 Weakness; E87.8 Other disorders of electrolyte and fluid balance, not elsewhere classified; R54 Age-related physical debility; Z95.0 Presence of cardiac pacemaker; Z60.2 Problems related to living alone; Z79.899 Other long term (current) drug therapy; Z86.79 Personal history of other diseases of the circulatory system
CPT/HCPCS: 36415; 71045; 71275; 80053; 81000; 83735; 83874; 83880; 84484; 85025; 85379; 85610; 85730; 86141; 87636; 93005; 93041